=== PATIENT | female | born 1985 | race Caucasian/White ===

== ENCOUNTER 2020-06-23 11:02 | Outpatient (REF) | payer MEDICAID, OTHER, SELFPAY ==
--- NOTE | 2020-06-23 | US_ITS ---
EXAMINATION: ULTRASOUND PELVIS COMPLETE CLINICAL INFORMATION: Pelvic pain COMPARISON: Comparison: 01/21/2018 TECHNIQUE: Transabdominal and transvaginal ultrasound the pelvis performed FINDINGS: The uterus is anteverted and anteflexed measuring 10.3 cm in length, 4.3 cm in AP and 5.4 cm in transverse dimension. Endometrial thickness measures 0.5 cm. Small nabothian cysts seen in the cervix. Right ovary measures 6.3 x 3.5 x 2.4 cm and 27.7 mL volume. There are 2 cysts seen. A simple cyst measuring 3.5 x 2.1 x 2.9 cm and a corpus luteal cyst measuring 1.6 x 1.5 x 1.8 cm. Previously right ovary measured 2.0 x 2.0 x 2.4 cm. Left ovary measures 2.8 x 2.2 x 1.5 cm and volume 4.8 mL. It appears unremarkable. Previously it measured 2.0 x 2.3 x 2.5 cm. There is no free fluid in the cul-de-sac. US/US pelvic complete IMPRESSION: Unremarkable uterus. Simple cyst. Popliteal cyst right ovary. Nabothian cyst in cervix.
--- NOTE | 2020-06-23 | US_ITS ---
EXAMINATION: ULTRASOUND PELVIS COMPLETE CLINICAL INFORMATION: Pelvic pain COMPARISON: Comparison: 01/21/2018 TECHNIQUE: Transabdominal and transvaginal ultrasound the pelvis performed FINDINGS: The uterus is anteverted and anteflexed measuring 10.3 cm in length, 4.3 cm in AP and 5.4 cm in transverse dimension. Endometrial thickness measures 0.5 cm. Small nabothian cysts seen in the cervix. Right ovary measures 6.3 x 3.5 x 2.4 cm and 27.7 mL volume. There are 2 cysts seen. A simple cyst measuring 3.5 x 2.1 x 2.9 cm and a corpus luteal cyst measuring 1.6 x 1.5 x 1.8 cm. Previously right ovary measured 2.0 x 2.0 x 2.4 cm. Left ovary measures 2.8 x 2.2 x 1.5 cm and volume 4.8 mL. It appears unremarkable. Previously it measured 2.0 x 2.3 x 2.5 cm. There is no free fluid in the cul-de-sac. US/US transvaginal IMPRESSION: Unremarkable uterus. Simple cyst. Popliteal cyst right ovary. Nabothian cyst in cervix.
== END 2020-06-23 11:03 | disposition home or self-care (01) ==
LOC: HO.US 11:02
PROVIDERS: Visit Provider General Practice
DX: R10.2 Pelvic and perineal pain (principal)
CPT/HCPCS: 76830; 76856

== ENCOUNTER 2020-10-23 10:24 | Emergency (ER) | payer MEDICAID, OTHER, SELFPAY ==
--- NOTE | ~2020-10-23 | CT_ITS ---
EXAMINATION: CT CERVICAL SPINE WITHOUT CONTRAST CLINICAL INFORMATION: Atraumatic right-sided neck pain COMPARISON: None. TECHNIQUE: Contiguous helical images of the cervical spine were obtained without IV contrast. Multiplanar reconstructions were performed. This CT examination was performed using dose optimization techniques as appropriate, variously including the following: *Automated exposure control *Adjustment of mA and/or kV according to patient size (this includes techniques or standardized protocols for targeted exams where dose is matched to indication/reason for exam; i.e. extremities or head) *Use of iterative reconstruction technique DLP: 524 mGy-cm FINDINGS: Straightening of the normal cervical lordosis. There is anatomic alignment of the vertebral bodies and posterior elements. The atlantoaxial and atlantooccipital articulations are intact. Vertebral body heights and intervertebral disc spaces are maintained. No bony spinal canal or neuroforaminal narrowing No evidence of acute fracture. No prevertebral soft tissue swelling. There is no cervical lymphadenopathy. The visualized thyroid gland is unremarkable. The visualized base of the brain is unremarkable. The visualized lung apices are clear. CT/CT cervical spine wo con IMPRESSION: No evidence for acute injury to the cervical spine. No evidence of bony spinal canal or neuroforaminal narrowing.
[2020-10-23 10:30] VITALS: BP 125/74; PULSE 86; RESP 16; TEMP 36.8; O2SAT 97; BMI 24.7
[2020-10-23 11:42] LABS: MANUAL DIFF FLAG NO
[2020-10-23 11:43] LABS: Basophils Percent Auto 0.4 % (0-2); Eosinophils Absolute Auto 0.2 X10*3/uL (0.0-0.4); Eosinophils Percent Auto 2.4 % (0-4); Hematocrit 38.2 % (37-47); Hemoglobin 13.1 g/dl (12.0-16.0); Imm Gran Abs Auto 0.02 X10*3/uL (0.00-0.03); Imm Gran Pct Auto 0.3 % (0.0-0.4); Lymphocytes Absolute Auto 2.1 X10*3/uL (1.2-4.9); Lymphocytes Percent Auto 26.5 % (20-40); Mean Corpuscular HGB Conc 34.3 g/dl (31.0-35.0); Mean Corpuscular Hemoglobin 29.8 pg (27.0-33.0); Mean Corpuscular Volume 86.8 fL (80-98); Monocytes Absolute Auto 0.5 X10*3/uL (0.1-1.2); Monocytes Percent Auto 6.7 % (2-11); Neutrophils Absolute Auto 5.1 X10*3/uL (2.0-8.3); Neutrophils Percent Auto 63.7 % (45-73); Platelet Count 275 X10*3/uL (160-400); Red Cell Distribution Width 11.5 % (11.0-16.0)
[2020-10-23 11:49] LABS: Prothrombin Time 11.5 SEC (10.8-13.0)
[2020-10-23] MEDS: Ketorolac Tromethamine 30 MG/ML VIAL IVPUSH (11:51)
[2020-10-23] MEDS: dexAMETHasone 2 MG TABLET 10 MG PO (11:51)
[2020-10-23] MEDS: diazePAM 5 MG TABLET PO (11:51)
[2020-10-23] MEDS: Lidocaine 4 % Patch ADH..PATCH 1 PATCH TRANSDERMA (11:56)
--- NOTE | 2020-10-23 11:57 | ED.NECK ---
HPI - Neck Pain/Injury General Chief Complaint: Neck Pain/Injury Stated Complaint: neck pain Time Seen by Provider: 10/23/20 11:08 Source: patient Mode of arrival: ambulatory Limitations: language barrier (Citizen [place]-speaking) History of Present Illness HPI Narrative: 35-year-old female with a past medical history of meningitis years ago and migraine headaches presenting to the ED with complaints of atraumatic right-sided neck pain for the past 4 days. Reports that it is worse with looking up towards the ceiling or turning her neck to the right. Otherwise she has no trouble looking down towards the floor or turning her neck to the left. She denies any fevers, chills, neck stiffness, sore throat, ear pain, cough any other symptoms complaints or concerns at this time. She reports it does not feel the same when she had her meningitis infection at that time she could not move her neck and she had swelling of the neck per patient. She denies any drug usage especially IV drug usage. MD complaint: neck pain Onset (ago): day(s) (Four days worse today) Place: home Radiation: right lateral Severity: moderate and constant Quality: aching and spasming Duration: constant Relieving factors: other (Mild symptomatic relief with Motrin) Exacerbating factors: movement of neck (Looking up towards the ceiling or towards the right) Context: other (Patient reports she woke up with this pain) Associated symptoms: none Treatments prior to arrival: none Related Data Previous Rx's Medication Instructions Recorded diazepam [Valium] 5 mg PO TID PRN #14 tab 10/23/20 ibuprofen 800 mg PO Q8H PRN #14 tab 10/23/20 Allergies Allergy/AdvReac Type Severity Reaction Status Date / Time ANTIBIOTIC Allergy Intermediate UNKNOWN Uncoded 04/01/20 17:53 WHICH ABX, RASH ON BODY Review of Systems Review of Systems: Constitutional : No trauma, No Weight loss, No Fever, No Chills, ENT/Mouth : No Hearing loss, No Ear Pain, No Nasal Congestion, No Sinus Pain, No Hoarseness, No sore throat, No Rhinorrhea, No Swallowing Difficulty Cardiovascular : No Chest Pain, No SOB Respiratory : No Cough, No Dyspnea Gastrointestinal : No Nausea, No Vomiting, No Diarrhea, No abdominal Pain, No Hematochezia, No Melena Genitourinary : No Dysuria, No Urinary Frequency, No Hematuria, No Urinary or Bowel Incontinence/retention Musculoskeletal : + Neck pain, No Neck Stiffness, No Back pain, No joint stiffness, No joint swelling Skin : No Skin Lesions, No rash or signs of infection Neuro : + Tingling to b/l arms, No Weakness, No radiation, No Numbness, No headache, no loss of bowel or bladder incontinence, no saddle anesthesia Denies history of IV drug usage. Yes all other systems are reviewed and are negative [facility] Past Medical History Attestation statement: The following information was validated with the patient. Medical History Meningitis No known health problems Surgical History History of appendectomy Social History Social History Advance Directives: No Physical Exam Vital Signs: Vital Signs: Last Vital Signs Temp 98.3 F 10/23/20 10:30 Pulse 78 10/23/20 13:53 Resp 14 10/23/20 13:53 BP 118/62 10/23/20 13:53 Pulse Ox 98 10/23/20 13:53 Body Mass Index 24.7 vital signs have been reviewed as normal and appeared to be correct. Blood pressure normal. Heart rate normal. Respiration rate normal. Temperature normal. Oxygen saturation normal. Appearance: Alert. Oriented X3. No acute distress. Head: Normal external exam. Normocephalic. Atraumatic. Eyes: PERRLA. EOMI. Conjunctiva and sclera normal. Eyelids normal. ENT: Pharynx normal. Uvula midline. Moist mucous membranes. No trismus noted. No drooling noted. No muffled voice noted. Neck: Normal inspection. Neck supple. Patient reports she has pain with looking up towards the ceiling and rotating her head to the right otherwise does not have any trouble looking down towards the floor or turning her head to the left.. No adenopathy. Thyroid Normal. Trachea midline. No meningeal signs. No neck mass noted. Tender to palpation of right-sided paracervical musculature and mid cervical tenderness. No step-offs or deformities noted. Patient neuro intact bilaterally and distally on all 4 extremities. Reflexes intact bilaterally and distally in all 4 extremities. No rashes/lesion/induration/fluctuance or signs of infection noted. No edema noted. CVS: Normal heart rate and rhythm. Heart sound normal. No murmurs noted. Pulses normal throughout. Respiratory: No respiratory distress. Painless inspiration. Breath sounds normal. No wheezes/rales/rhonchi noted. Chest nontender. No accessory muscle usage noted or decreased air movement noted. Back: Full range of motion noted. No obvious deformities, or edema. Full ROM in back and lower extremities. Skin: Skin warm and dry. Normal skin color. Normal skin turgor. No rashes/lesions/lacerations noted. Extremities: Extremities exhibit normal range of motion. Extremities nontender. Neuro: Oriented X 3. No motor deficit. No sensory deficit. Reflexes normal. Normal steady gait. Course Course Course Narrative: 35-year-old female with a past medical history of meningitis years ago presenting to the ED with complaints of right-sided atraumatic neck pain for the past 4 days. Denies history of drug usage/IV drug usage. Denies any fevers, chills, neck stiffness or recent illness. - on exam patient is alert and oriented x3. Not in any acute distress. Vital signs are stable within normal limits patient is afebrile. She is able to move her neck although she states pain when looking up towards the ceiling and looking towards her right although patient can do it and she does not have any trouble looking down to the floor or looking over her left shoulder. No signs of infection. No meningeal signs. No neuro deficits are noted. - patient most likely muscular spasm - will obtain a CT scan of cervical spine, basic labs and provide symptomatic treatment with 30 mg of Toradol, 5 mg of Valium and 10 mg of Decadron and re-evaluate. Reevaluation(s) Reevaluation #1: - all labs within normal limits. Serum quant negative for . CT scan of cervical spine revealed chronic changes no acute processes noted. - patient reported symptomatic relief of her neck pain and now has full range of motion therefore not consistent with meningitis as patient denied any fevers, chills she is afebrile on exam she does not have an elevated white blood cell count she has full range of motion therefore at this time will DC home with symptomatic treatment along with instructions return if any new or worsening symptoms to follow up with primary care provider. Patient understands agrees with this plan. Time: 15:24 [facility] - Neck Pain/Injury Medical Records Attestation: I reviewed the patient's medical records. Lab Data Attestation: I reviewed the patient's lab results. Result diagrams: 10/23/20 11:38 10/23/20 14:34 Labs: Lab Results 10/23/20 10/23/20 10/23/20 Range/Units 11:38 11:38 11:38 WBC 8.0 (4.8-10.8) X10*3/uL RBC 4.40 (4.20-5.50) X10*6/uL Hgb 13.1 (12.0-16.0) g/dl Hct 38.2 (37-47) % MCV 86.8 (80-98) fL MCH 29.8 (27.0-33.0) pg MCHC 34.3 (31.0-35.0) g/dl RDW 11.5 (11.0-16.0) % Plt Count 275 (160-400) X10*3/uL MPV 10.0 (9.4-12.3) fL Immature Gran % (Auto) 0.3 (0.0-0.4) % Neut % (Auto) 63.7 (45-73) % Lymph % (Auto) 26.5 (20-40) % Moca % (Auto) 6.7 (2-11) % Eos % (Auto) 2.4 (0-4) % Baso % (Auto) 0.4 (0-2) % Lymph # (Auto) 2.1 (1.2-4.9) X10*3/uL Moca # (Auto) 0.5 (0.1-1.2) X10*3/uL Eos # (Auto) 0.2 (0.0-0.4) X10*3/uL Baso # (Auto) 0.0 (0.0-0.2) X10*3/uL Abs Immat Gran (auto) 0.02 (0.00-0.03) X10*3/uL Absolute Neuts (auto) 5.1 (2.0-8.3) X10*3/uL Absolute Nucleated RBC 0.000 (0.0-0.012) X10*3/uL Nucleated RBC % (auto) 0.0 (0.0-0.2) /100WBC ESR 4 (0-20) MM/HR PT 11.5 (10.8-13.0) SEC INR 1.0 (0.9-1.1) Sodium (135-145) mmol/L Potassium (3.3-5.1) mmol/L Chloride (96-108) mmol/L Carbon Dioxide (22-29) mmol/L Anion Gap (12-20) BUN (9-16) mg/dL Creatinine (0.5-1.4) mg/dL Estim Creat Clear Calc Estimated GFR Random Glucose (60-115) mg/dL Calcium (8.4-10.2) mg/dL Total Bilirubin (0.0-1.0) mg/dL AST (5-31) U/L ALT (0-31) U/L Alkaline Phosphatase (39-117) U/L C-Reactive Protein (< or = 0.50) mg/dL Total Protein (6.5-8.0) g/dL Albumin (3.5-5.0) g/dL Beta HCG, Quant mIU/mL 10/23/20 Range/Units 14:34 WBC (4.8-10.8) X10*3/uL RBC (4.20-5.50) X10*6/uL Hgb (12.0-16.0) g/dl Hct (37-47) % MCV (80-98) fL MCH (27.0-33.0) pg MCHC (31.0-35.0) g/dl RDW (11.0-16.0) % Plt Count (160-400) X10*3/uL MPV (9.4-12.3) fL Immature Gran % (Auto) (0.0-0.4) % Neut % (Auto) (45-73) % Lymph % (Auto) (20-40) % Moca % (Auto) (2-11) % Eos % (Auto) (0-4) % Baso % (Auto) (0-2) % Lymph # (Auto) (1.2-4.9) X10*3/uL Moca # (Auto) (0.1-1.2) X10*3/uL Eos # (Auto) (0.0-0.4) X10*3/uL Baso # (Auto) (0.0-0.2) X10*3/uL Abs Immat Gran (auto) (0.00-0.03) X10*3/uL Absolute Neuts (auto) (2.0-8.3) X10*3/uL Absolute Nucleated RBC (0.0-0.012) X10*3/uL Nucleated RBC % (auto) (0.0-0.2) /100WBC ESR (0-20) MM/HR PT (10.8-13.0) SEC INR (0.9-1.1) Sodium 138 (135-145) mmol/L Potassium 4.9 (3.3-5.1) mmol/L Chloride 108 (96-108) mmol/L Carbon Dioxide 20 L (22-29) mmol/L Anion Gap 15 (12-20) BUN 12 (9-16) mg/dL Creatinine 0.68 (0.5-1.4) mg/dL Estim Creat Clear Calc 93.5 Estimated GFR > 60 Random Glucose 99 (60-115) mg/dL Calcium 8.8 (8.4-10.2) mg/dL Total Bilirubin 0.4 (0.0-1.0) mg/dL AST 23 (5-31) U/L ALT 27 (0-31) U/L Alkaline Phosphatase 53 (39-117) U/L C-Reactive Protein 0.17 (< or = 0.50) mg/dL Total Protein 7.2 (6.5-8.0) g/dL Albumin 4.4 (3.5-5.0) g/dL Beta HCG, Quant < 2 mIU/mL Imaging Data Cervical spine CT: Attestation: I personally reviewed and interpreted this imaging study as follows: Radiologist's impression: FINDINGS: Straightening of the normal cervical lordosis. There is anatomic alignment of the vertebral bodies and posterior elements. The atlantoaxial and atlantooccipital articulations are intact. Vertebral body heights and intervertebral disc spaces are maintained. No bony spinal canal or neuroforaminal narrowing No evidence of acute fracture. No prevertebral soft tissue swelling. There is no cervical lymphadenopathy. The visualized thyroid gland is unremarkable. The visualized base of the brain is unremarkable. The visualized lung apices are clear. CT/CT cervical spine wo con IMPRESSION: No evidence for acute injury to the cervical spine. No evidence of bony spinal canal or neuroforaminal narrowing. Discharge Plan Discharge Clinical Impression: Strain of neck muscle, Torticollis Patient Disposition: Home, Self-Care Instructions: Spasmodic Torticollis (ED), Muscle Spasm (ED) Prescriptions: New ibuprofen 800 mg tablet 800 mg PO Q8H PRN (Reason: pain) Qty: 14 RF: 0 diazepam [Valium] 5 mg tablet 5 mg PO TID PRN (Reason: muscle spasm) Qty: 14 RF: 0 Referrals: [facility] [Primary Care Provider] - 2 days Stand Alone Forms: Work/School Release Print Language: Citizen Of [place]
[2020-10-23 13:28] LABS: Erythrocyte Sedimentation Rate 4 MM/HR (0-20)
[2020-10-23 13:53] VITALS: BP 118/62; PULSE 78; RESP 14; O2SAT 98
[2020-10-23 15:09] LABS: Alanine Aminotransferase 27 U/L (0-31); Albumin Level 4.4 g/dL (3.5-5.0); Alkaline Phosphatase 53 U/L (39-117); Anion Gap 15 (12-20); Aspartate Amino Transferase 23 U/L (5-31); Bilirubin Total 0.4 mg/dL (0.0-1.0); Blood Urea Nitrogen 12 mg/dL (9-16); C Reactive Protein 0.17 mg/dL (< or = 0.50); Calcium 8.8 mg/dL (8.4-10.2); Carbon Dioxide 20 mmol/L (22-29); Chloride 108 mmol/L (96-108); Creatinine Clr Calc Pharmacy 93.5; Estimated Glomerular Filt Rate > 60; Glucose Random 99 mg/dL (60-115); Potassium 4.9 mmol/L (3.3-5.1); Sodium 138 mmol/L (135-145); Total Protein 7.2 g/dL (6.5-8.0)
[2020-10-23 15:10] LABS: HCG Quantitative < 2 mIU/mL
== END 2020-10-23 15:46 | disposition home or self-care (01) ==
PROVIDERS: Physician Assistant Medical; Emergency Provider Emergency Medicine Emergency Medical Services
DX: M54.2 Cervicalgia (principal); S16.1XXA Strain of muscle, fascia and tendon at neck level, initial encounter; G24.3 Spasmodic torticollis; X50.1XXA Overexertion from prolonged static or awkward postures, initial encounter; Y93.84 Activity, sleeping; Y92.013 Bedroom of single-family (private) house as the place of occurrence of the external cause; Y99.9 Unspecified external cause status
CPT/HCPCS: 36415; 72125; 80053; 84702; 85025; 85610; 85652; 86140; 96374; 99284; J1885; J8540

== ENCOUNTER 2021-01-27 00:24 | Emergency (ER) | payer MEDICAID, OTHER, SELFPAY ==
[2021-01-27 00:27] VITALS: BP 130/82; PULSE 82; RESP 18; TEMP 37; O2SAT 98; BMI 26.4
[2021-01-27 01:49] LABS: Glucose Urine UA NEG (NEG); Leukocyte Esterase Urine 1+ (NEG); Nitrite Urine NEG (NEG); UACC Culture Trigger YES; Urine Blood 2+ (NEG); Urine Ketones NEG (NEG); Urine Protein 1+ MG/DL (NEG-TRACE)
[2021-01-27 01:50] LABS: Appearance Urine HAZY; Color Urine YELLOW
[2021-01-27 01:55] LABS: Bacteria Urine 3+ /LPF; Calcium Oxalate Crystals Urine 2+ /LPF; Mucus Urine 2+ /LPF; Squamous Epithelial Cell Urine 2+ /LPF
[2021-01-27 02:09] LABS: UPreg QC Valid YES; Urine Pregnancy NEGATIVE (NEGATIVE)
--- NOTE | 2021-01-27 02:10 | ED.FEMALEGU ---
HPI - Female Genitourinary General Chief complaint: Urogenital-Female Stated complaint: migraine, stomach pain, urinating w/ blood Time Seen by Provider: 01/27/21 01:29 Source: patient and translator/interpreter Mode of arrival: ambulatory History of Present Illness HPI Narrative: 35-year-old female with presentation for headache as well as irregularity to her menstrual bleeding for 4 days and states that her LMP is 3 weeks ago. She also describes crampy pelvic pain and sources a recent diagnosis of an ovarian cyst. Related Data Previous Rx's Medication Instructions Recorded diazepam [Valium] 5 mg PO TID PRN #14 tab 10/23/20 ibuprofen 800 mg PO Q8H PRN #14 tab 10/23/20 cephalexin 500 mg PO Q12H 7 Days #14 cap 01/27/21 phenazopyridine [Pyridium] 100 mg PO TID PRN #6 tab 01/27/21 Allergies Allergy/AdvReac Type Severity Reaction Status Date / Time ANTIBIOTIC Allergy Intermediate UNKNOWN Uncoded 04/01/20 17:53 WHICH ABX, RASH ON BODY Review of Systems Review of Systems: Pertinent positives and negatives as stated in HPI 10 point review of systems is otherwise negative. [facility] Past Medical History Source: nursing notes reviewed Medical History Meningitis No known health problems Surgical History History of appendectomy Social History Social History Alcohol intake: never Patient Tobacco Use Status: Never used Tobacco Use of substances other than those prescribed or required for medical reasons: No Advance Directives: No Advance Directives Information Provided: No Patient : No Physical Exam Vital Signs: Vital Signs: Last Vital Signs Temp 98.6 F 01/27/21 00:27 Pulse 69 01/27/21 02:34 Resp 14 01/27/21 02:34 BP 111/78 01/27/21 02:34 Pulse Ox 100 01/27/21 02:34 Body Mass Index 26.4 VITAL SIGNS: Reviewed. GENERAL: Well developed, well nourished, in no acute distress. HEAD: Normocephalic/atraumatic EYES: PERRLA, EOMI OROPHARYNX: no oral lesions noted, posterior pharynx clear LUNGS: Normal breath sounds. No adventitious sounds or accessory muscle use. SpO2<100> CARDIOVASCULAR: Regular rate and rhythm without noted murmurs ABDOMEN: Soft, mild suprapubic tenderness, non-distended with bowel sounds, CVA tenderness SKIN: Inspection of the skin reveals no rashes, ulcerations, jaundice, pallor, or petechiae. NEUROLOGIC: Alert and oriented x 4. Strength and sensation to light touch were grossly intact x 4. Course Course Course Narrative: 35-year-old female with history and clinical presentation suggestive UTI, less likely pyelonephritis or renal colic. Review of all investigations positive for UTI and patient received initial antibiotics here and then was discharged home with remaining course. [facility] - Female Genitourinary Lab Data Labs: Lab Results 01/27/21 01/27/21 Range/Units 01:43 01:43 Urine Color YELLOW Urine Appearance HAZY Urine pH 6.0 (5.0-8.0) Ur Specific [place] 1.020 (1.005-1.025) Urine Protein 1+ H (NEG-TRACE) MG/DL Urine Glucose (UA) NEG (NEG) MG/DL Urine Ketones NEG (NEG) MG/DL Urine Blood 2+ H (NEG) Urine Nitrite NEG (NEG) Ur Leukocyte Esterase 1+ H (NEG) Urine RBC 1-4 (0) /HPF Urine WBC 15-29 H (0-4) /HPF Ur Squamous Epith Cells 2+ /LPF Calcium Oxalate Crystal 2+ /LPF Urine Bacteria 3+ /LPF Urine Mucus 2+ /LPF Urine Test NEGATIVE (NEGATIVE) Discharge Plan Discharge Clinical Impression: Urinary tract infection Patient Disposition: Home, Self-Care Instructions: Urinary Tract Infection in Women (ED) Additional Instructions: 1. Aumente la hidrataci?n de los l?quidos, especialmente con agua. 2. Recomiende el uso de Tylenol / ibuprofeno de venta jem seg?n sea necesario para controlar el dolor. Regrese a la adolfo de emergencias por un empeoramiento lemuel de los s?ntomas. Prescriptions: New cephalexin 500 mg capsule 500 mg PO Q12H 7 Days Qty: 14 RF: 0 phenazopyridine [Pyridium] 100 mg tablet 100 mg PO TID PRN (Reason: pain) Qty: 6 RF: 0 No Action ibuprofen 800 mg tablet 800 mg PO Q8H PRN (Reason: pain) Qty: 14 RF: 0 diazepam [Valium] 5 mg tablet 5 mg PO TID PRN (Reason: muscle spasm) Qty: 14 RF: 0 Referrals: [place] [Primary Care Provider] - 2 days Interventions: ED Discharge Assessment Last Done: 01/27/21 04:00 Discharge Date/Time: 01/27/21 04:01 Print Language: French
[2021-01-27 02:34] VITALS: BP 111/78; PULSE 69; RESP 14; O2SAT 100
[2021-01-27] MEDS: Acetaminophen 325 MG TABLET 975 MG PO (02:41)
[2021-01-27] MEDS: cephALEXin 500 MG CAPSULE PO (02:42)
[2021-01-27] MEDS: Phenazopyridine HCL 200 MG TABLET PO (02:42)
[2021-01-27] MEDS: Ibuprofen 400 MG TABLET PO (02:42)
== END 2021-01-27 04:01 | disposition home or self-care (01) ==
PROVIDERS: Emergency Provider Student in an Organized Health Care Education/Training Program
DX: N39.0 Urinary tract infection, site not specified (principal)
CPT/HCPCS: 81001; 81003; 81025; 87086; 87088; 87186; 99283; 99285

== ENCOUNTER 2021-05-24 18:08 | Emergency (ER) | payer MEDICAID, OTHER, SELFPAY ==
[2021-05-24 18:30] VITALS: BP 126/77; PULSE 70; RESP 16; TEMP 36; O2SAT 100; BMI 25.2
--- NOTE | 2021-05-24 20:46 | ED_ITS ---
HPI - Headache General Chief Complaint: Headache Stated Complaint: headache vomitting Time Seen by Provider: 05/24/21 20:37 Source: patient Mode of arrival: ambulatory Limitations: no limitations History of Present Illness HPI Narrative: Patient comes emergency room complaining of a headache that started this morning. Patient states that she also has nausea and vomited once. Patient has history of migraine headaches. Patient has not had a migraine for over 3 months. Today, the patient has not taking any medications for the headache including Tylenol or ibuprofen. When patient arrived to the emergency room, she states did that she has body aches. When I spoke with the patient, patient denied any body aches other than the headache. Patient denies neck pain, stiffness, no URI abdominal or UTI symptoms., no fever or chills Related Data Previous Rx's Medication Instructions Recorded diazepam 5 mg tablet (Valium) 5 mg PO TID PRN #14 tab 10/23/20 ibuprofen 800 mg tablet 800 mg PO Q8H PRN #14 tab 10/23/20 cephalexin 500 mg capsule 500 mg PO Q12H 7 Days #14 cap 01/27/21 phenazopyridine 100 mg tablet 100 mg PO TID PRN #6 tab 01/27/21 (Pyridium) ketorolac 10 mg tablet 10 mg PO TID PRN 5 Days #7 tab 05/24/21 metoclopramide HCl 5 mg tablet 5 mg PO .B.i.d. PRN #7 tab 05/24/21 (Reglan) Allergies Allergy/AdvReac Type Severity Reaction Status Date / Time ANTIBIOTIC Allergy Intermediate UNKNOWN Uncoded 04/01/20 17:53 WHICH ABX, RASH ON BODY Review of Systems Review of Systems: Constitutional : No Weight loss, No Fever, No Chills, No Night Sweats, No Fatigue, No Malaise ENT/Mouth : No Hearing loss, No Ear Pain, No Nasal Congestion, No Sinus Pain, No Hoarseness, No sore throat, No Rhinorrhea, No Swallowing Difficulty Eyes: No Eye Pain, No Swelling, No Redness, No Foreign Body, No Discharge, No Vision Changes Cardiovascular : No Chest Pain, No SOB, No Dyspnea on Exertion, No Orthopnea, No Edema, No Palpitations Respiratory : No Cough, No Sputum, No Wheezing, No Smoke Exposure, No Dyspnea Gastrointestinal complaining of nausea and vomiting, No Diarrhea, No Constipation, No abdominal Pain, No Hematochezia, No Melena Genitourinary : no irregular bleeding, No Dysuria, No Urinary Frequency, No Hematuria, No Urinary Incontinence, No Urgency, No Flank Pain, No Urinary Flow Changes, No Hesitancy Musculoskeletal : No joint pain, No Myalgias, No Joint Swelling Skin : No Skin Lesions, No rash Neuro : No Weakness, No Numbness, No Paresthesias, No Loss of Consciousness, No Dizziness, complaining of Headache Psych : No Anxiety/Panic, No Depression, No SI/HI/AH/VH, No Social Issues, Heme/Lymph: No Bruising, No Bleeding,No Lymphadenopathy Endocrine : No Polyuria, No Polydipsia, No Temperature Intolerance PMFSH Past Medical History Medical History Meningitis No known health problems Surgical History History of appendectomy Social History Social History Alcohol intake: never Patient Tobacco Use Status: Never used Tobacco Advance Directives: No Advance Directives Information Provided: Yes Patient : No Physical Exam Vital Signs: Vital Signs: Last Vital Signs Temp 96.8 F 05/24/21 18:30 Pulse 70 05/24/21 18:30 Resp 16 05/24/21 18:30 BP 126/77 05/24/21 18:30 Pulse Ox 100 05/24/21 18:30 Body Mass Index 25.2 Const: Other: Appearance: Alert. Oriented X3. No acute distress. Well- appearing Eyes: Pupils equal, round and reactive to light. ENT: Pharynx normal. [place] neck flexion and extension Neck: Normal inspection. Neck supple. No lymph nodes noted. No crepitus CVS: Normal heart rate and rhythm. Pulses normal. Normal S1 and S2 Respiratory: No respiratory distress. Breath sounds normal. No Wheezing. No rales Abdomen: Soft and nontender. No rigidity. No distention. Skin: Skin warm and dry. Normal skin color. Normal skin turgor. Extremities: No lower extremity edema. No lower extremity edema. No Lacerations. No Rash Neuro: Oriented X 3. No motor deficit. No sensory deficit. Moving all ex termities. No slurred speech. Course Course Course Narrative: IV fluids, ketorolac, metoclopramide, diphenhydramine. Please reassess after IV fluids. Anticipating discharge home. Sign out given to Dr. Bruce Discharge Plan Discharge Clinical Impression: Migraine headache Patient Disposition: Home, Self-Care Instructions: Migraine Headache (ED) Additional Instructions: Please follow-up with your primary care physician tomorrow. If you have any worsening or new symptoms, please return to the emergency room or call 911 Prescriptions: New ketorolac 10 mg tablet 10 mg PO TID PRN (Reason: pain) 5 Days Qty: 7 RF: 0 metoclopramide HCl [Reglan] 5 mg tablet 5 mg PO .B.i.d. PRN (Reason: nausea and vomiting) Qty: 7 RF: 0 No Action ibuprofen 800 mg tablet 800 mg PO Q8H PRN (Reason: pain) Qty: 14 RF: 0 diazepam [Valium] 5 mg tablet 5 mg PO TID PRN (Reason: muscle spasm) Qty: 14 RF: 0 cephalexin 500 mg capsule 500 mg PO Q12H 7 Days Qty: 14 RF: 0 phenazopyridine [Pyridium] 100 mg tablet 100 mg PO TID PRN (Reason: pain) Qty: 6 RF: 0
[2021-05-24] MEDS: 0.9 % Sodium Chloride 1,000 ML 999 ML IVCONT (21:19)
[2021-05-24] MEDS: Metoclopramide HCl 10 MG/2 ML VIAL IVPUSH (21:20)
[2021-05-24] MEDS: diphenhydrAMINE HCL 50 MG/ML VIAL 25 MG IVPUSH (21:20)
[2021-05-24] MEDS: Ketorolac Tromethamine 15 MG/ML VIAL 30 MG IVPUSH (21:20)
[2021-05-24 22:51] VITALS: BP 125/80; PULSE 80; RESP 16; O2SAT 100
== END 2021-05-24 22:53 | disposition home or self-care (01) ==
PROVIDERS: Emergency Provider Emergency Medicine
DX: G43.909 Migraine, unspecified, not intractable, without status migrainosus (principal)
CPT/HCPCS: 96361; 96374; 96375; 99284; J1200; J1885; J2765

== ENCOUNTER 2021-06-13 14:27 | Outpatient (REF) | payer MEDICAID, OTHER, SELFPAY ==
--- NOTE | ~2021-06-13 | US_ITS ---
EXAMINATION: US PELVIS CLINICAL INFORMATION: Abnormal uterine bleeding COMPARISON: Previous pelvic ultrasounds most recent June 2019 TECHNIQUE: Ultrasound of the pelvis is performed using both transabdominal and transvaginal transducers along with Doppler. Transvaginal imaging is performed due to inadequate visualization transabdominally. FINDINGS: The uterus is anteverted and measures 10 x 4 x 5 cm. No focal uterine lesion is seen. Endometrial thickness is normal measuring 0.4 cm. There are nabothian cysts in the cervix. There are several new punctate high attenuation foci in the cervix questionable for air, calcifications or blood product. The right ovary is normal-appearing and measures 3 x 2 x 3.2 cm. There are several simple right ovarian cysts, largest measuring 1.9 x 1.4 x1.4 cm. Left ovary is enlarged and measures 5 x 4 x 4.4 cm. There is a 4.3 x 4.3 x 3.3 cm minimally complex left ovarian cyst with daughter cysts. This is a new finding compared to June 2020 exam. There is no fluid in the pelvis. US/US pelvic and transvaginal IMPRESSION: Normal thickness endometrium. Enlarged left ovary and 4.3 x 4.3 x 3.3 cm minimally complex left ovarian cyst new in the interval from June 2020.
== END 2021-06-13 14:28 | disposition home or self-care (01) ==
LOC: HO.US 14:27
PROVIDERS: Visit Provider General Practice
DX: N93.9 Abnormal uterine and vaginal bleeding, unspecified (principal)
CPT/HCPCS: 76830; 76856

== ENCOUNTER 2021-07-11 13:54 | Emergency (ER) | payer MEDICAID, OTHER, SELFPAY ==
--- NOTE | ~2021-07-11 | XR_ITS ---
EXAMINATION: XR CHEST CLINICAL INFORMATION: Shortness of breath COMPARISON: 03/29/2020 TECHNIQUE: Frontal view of the chest was obtained. FINDINGS: No significant abnormality is noted involving the heart, lungs, mediastinum, bony thorax or soft tissues. XR/XR chest 1V IMPRESSION: Unremarkable examination.
[2021-07-11 17:38] LABS: COVID-19 Test Positive (Negative)
--- NOTE | 2021-07-11 18:16 | ED.URI ---
HPI - URI/Sore Throat General Stated Complaint: Fever Headache Dizzy Time Seen by Provider: 07/11/21 18:14 Source: patient Mode of arrival: ambulatory Limitations: no limitations History of Present Illness HPI Narrative: 36-year-old female past medical history significant for migraines, meningitis years ago presents to the emergency department with complaints of headache,nausea, sore throat, body aches, fevers all of which started this morning. Patient tells me this feels like her typical headache. She reports nausea all day today and a sore throat. She tells me she feels fatigued and exhausted. Fevers are subjective but she states she has felt warm. She denies cough, shortness of breath, chest pain, nausea, vomiting, diarrhea, constipation, abdominal pain, weakness, weakness. Vaccinated against COVID-19. Not imunocompromised MD elicited complaint: fever Onset (ago): day(s) (1) Consistency: constant Severity: moderate Able to tolerate fluids by mouth: Yes Exacerbating factors: nothing Relieving factors: nothing Associated symptoms: denies other symptoms Treatments prior to arrival: none Related Data Previous Rx's Medication Instructions Recorded diazepam 5 mg tablet (Valium) 5 mg PO TID PRN #14 tab 10/23/20 ibuprofen 800 mg tablet 800 mg PO Q8H PRN #14 tab 10/23/20 cephalexin 500 mg capsule 500 mg PO Q12H 7 Days #14 cap 01/27/21 phenazopyridine 100 mg tablet 100 mg PO TID PRN #6 tab 01/27/21 (Pyridium) ketorolac 10 mg tablet 10 mg PO TID PRN 5 Days #7 tab 05/24/21 metoclopramide HCl 5 mg tablet 5 mg PO .B.i.d. PRN #7 tab 05/24/21 (Reglan) Allergies Allergy/AdvReac Type Severity Reaction Status Date / Time acetaminophen [From Percocet] Allergy Vomiting Verified 07/11/21 18:24 oxycodone [From Percocet] Allergy Vomiting Verified 07/11/21 18:24 ibuprofen [From Motrin] AdvReac Abdominal Verified 07/11/21 18:24 Pain ANTIBIOTIC Allergy Intermediate UNKNOWN Uncoded 04/01/20 17:53 WHICH ABX, RASH ON BODY Review of Systems Review of Systems: Constitutional : No Weight loss, + Fever, No Chills, + Fatigue, + Malaise ENT/Mouth : No sore throat, No Rhinorrhea Eyes: No Eye Pain, No Swelling, No Redness Cardiovascular : No Chest Pain, No SOB, No Dyspnea on Exertion, No Orthopnea, No Edema, No Palpitations Respiratory : No Cough, No Sputum, No Wheezing Gastrointestinal : No Nausea, No Vomiting, No Diarrhea, No Constipation, No abdominal Pain, No Hematochezia, No Melena Genitourinary : No Dysuria, No Urinary Frequency, No Hematuria, Musculoskeletal : No joint pain, No Myalgias, No Joint Swelling Skin : No Skin Lesions, No rash Neuro : No Weakness, No Numbness, + Dizziness, + Headache All other systems reviewed and are negative Yes all other systems are reviewed and are negative [facility] Past Medical History Attestation statement: The following information was validated with the patient. Source: old records reviewed and nursing notes reviewed Medical History (Updated 07/11/21 @ 18:28 by CAROLA Aquino) Meningitis Migraine headache No known health problems Surgical History History of appendectomy Social History Social History Alcohol intake: never Patient Tobacco Use Status: Never used Tobacco Advance Directives: No Advance Directives Information Provided: No Physical Exam Vital Signs: Vital Signs: VSS Appearance: Alert.? Oriented X3.? No acute distress.? Head: Normocephalic, atraumatic, no step-offs or deformities Eyes: Pupils equal, round and reactive to light.? ENT: Pharynx normal.? Neck: Normal inspection.? Neck supple.? CVS: Normal heart rate and rhythm.? Pulses normal.? Respiratory: No respiratory distress.? Breath sounds normal.? Abdomen: Soft and nontender.? Skin: Skin warm and dry.? Normal skin color.? Normal skin turgor.? Extremities: No lower extremity edema.? No calf ttp. 5/5 strength to bilateral upper and lower extremities Back: No midline tenderness, no C-spine tenderness, full range of motion, no CVA tenderness bilaterally Neuro: Oriented X 3.? No motor deficit.? No sensory deficit. Course Reevaluation(s) Reevaluation #1: No meningeal signs unlikely meningitis. Patients symptoms likely secondary to COVID-19. MDM - URI/Sore Throat MDM Narrative Medical decision making narrative: 1812 36 yo F pmhx migranes and meningitis years ago presents with CC of headache, fever, body aches, sore throat. PE benign Plan- covid test Medical Records Attestation: I reviewed the patient's medical records. Lab Data Attestation: I reviewed the patient's lab results. Labs: Lab Results 07/11/21 Range/Units 17:03 COVID-19 (AVA) Positive A (Negative) COVID-19 Clin Com See Note Critical Care Time Critical Care Time Critical Care Time: No Discharge Plan Discharge Clinical Impression: Migraine headache, Upper respiratory infection Prescriptions: No Action ibuprofen 800 mg tablet 800 mg PO Q8H PRN (Reason: pain) Qty: 14 RF: 0 diazepam [Valium] 5 mg tablet 5 mg PO TID PRN (Reason: muscle spasm) Qty: 14 RF: 0 cephalexin 500 mg capsule 500 mg PO Q12H 7 Days Qty: 14 RF: 0 phenazopyridine [Pyridium] 100 mg tablet 100 mg PO TID PRN (Reason: pain) Qty: 6 RF: 0 ketorolac 10 mg tablet 10 mg PO TID PRN (Reason: pain) 5 Days Qty: 7 RF: 0 metoclopramide HCl [Reglan] 5 mg tablet 5 mg PO .B.i.d. PRN (Reason: nausea and vomiting) Qty: 7 RF: 0
[2021-07-11 18:40] VITALS: BP 117/77; PULSE 82; RESP 18; TEMP 36.8; O2SAT 100; BMI 25.2
--- NOTE | 2021-07-11 20:39 | ED.URI ---
HPI - URI/Sore Throat General Chief Complaint: Upper Respiratory Symptoms Stated Complaint: Fever Headache Dizzy Time Seen by Provider: 07/11/21 18:14 Source: patient Mode of arrival: ambulatory Limitations: no limitations History of Present Illness HPI Narrative: Patient presents to the ED for headache, diarrhea, sore throat, and fever. Patient states no chest pain or shortness of breath Related Data Previous Rx's Medication Instructions Recorded diazepam 5 mg tablet (Valium) 5 mg PO TID PRN #14 tab 10/23/20 ibuprofen 800 mg tablet 800 mg PO Q8H PRN #14 tab 10/23/20 cephalexin 500 mg capsule 500 mg PO Q12H 7 Days #14 cap 01/27/21 phenazopyridine 100 mg tablet 100 mg PO TID PRN #6 tab 01/27/21 (Pyridium) ketorolac 10 mg tablet 10 mg PO TID PRN 5 Days #7 tab 05/24/21 metoclopramide HCl 5 mg tablet 5 mg PO .B.i.d. PRN #7 tab 05/24/21 (Reglan) Allergies Allergy/AdvReac Type Severity Reaction Status Date / Time ANTIBIOTIC Allergy Intermediate UNKNOWN Uncoded 04/01/20 17:53 WHICH ABX, RASH ON BODY Review of Systems Review of Systems: Yes all other systems are reviewed and are negative Constitutional: Constitutional: Reports as per HPI, Reports no additional constitutional complaints, Reports body ache(s), Reports fever(s) and Reports headache(s) Eyes: Eyes: Reports as per HPI and Reports no additional eye complaints ENT: Reports system reviewed and no additional complaints, except as documented, Reports as per HPI and Reports headache(s) Cardiovascular: Cardiovascular: Reports as per HPI and Reports no additional cardiovascular complaints Respiratory: Respiratory: Reports as per HPI and Reports no additional respiratory complaints Gastrointestinal: Gastrointestinal: Reports as per HPI and Reports no additional gastrointestinal complaints Genitourinary: Genitourinary: Reports no additional female genitourinary complaints and Reports as per HPI Musculoskeletal: Musculoskeletal: Reports no additional musculoskeletal complaints and Reports as per HPI Neurologic: Reports system reviewed and no additional complaints, except as documented, Reports as per HPI and Reports headache(s) Endocrine: Endocrine: Reports no additional endocrine complaints and Reports as per HPI [facility] Past Medical History Medical History (Updated 07/11/21 @ 20:43 by CAROLA Lucero) Meningitis Migraine headache No known health problems Surgical History History of appendectomy Social History Social History Alcohol intake: never Patient Tobacco Use Status: Never used Tobacco Advance Directives: No Advance Directives Information Provided: No Patient : No Physical Exam Vital Signs: Vital Signs: Last Vital Signs Temp 98.3 F 07/11/21 18:40 Pulse 82 07/11/21 18:40 Resp 18 07/11/21 18:40 BP 117/77 07/11/21 18:40 Pulse Ox 100 07/11/21 18:40 BMI result Body Mass Index 25.2 Const: General: cooperative, healthy appearing, comfortable, no acute distress, well developed, alert, awake and Physically active Orientation/consciousness: patient oriented x3 HENMT: Head: Yes normal to inspection, Yes No palpable skull fracture present, Yes normocephalic, Yes atraumatic and No abrasion Eyes: General: appearance normal, both eyes and all related structures Neck: Neck: Yes normal visual inspection, Yes full ROM, Yes no lymphadenopathy, Yes no meningeal signs, Yes trachea midline, Yes supple, No anterior neck swelling and No tender Chest: Chest palpation & inspection: normal inspection of the chest and normal palpation of entire chest wall Resp: Effort & Inspection: normal respiratory effort and able to speak in complete sentences Auscultation: clear to auscultation bilaterally Cardio: Jugular venous distension: no JVD Heart sounds: S1 normal heart sound present and S2 normal heart sound present GI: Inspection: Yes normal to inspection and No abdominal wall ecchymosis Palpation (GI): Soft to palpation, not firm, nontender, no guarding and not rigid : General: No CVA tenderness and Yes no CVA tenderness Back/Spine/Pelvis: Back: no CVA tenderness, No CVA tenderness and No back tenderness Skin: General skin exam: no rashes or lesions noted and elasticity normal Neuro: General: patient oriented x3, gait normal, no meningeal signs and CN's II-XI intact bilaterally Cranial nerves: Yes CN's II-XII intact bilaterally Extrem: General: Yes normal to inspection and Yes full ROM Psych: Appearance: grossly normal, well kempt and not disheveled Course Course Course Narrative: CHest xray and covid ordered Reevaluation(s) Reevaluation #1: positive for covid. Chest xray normal. patietn is not in respiratory distress. MDM - URI/Sore Throat MDM Narrative Medical decision making narrative: covid Lab Data Labs: Lab Results 07/11/21 Range/Units 17:03 COVID-19 (AVA) Positive A (Negative) COVID-19 Clin Com See Note Discharge Plan Discharge Clinical Impression: COVID-19 Patient Disposition: Home, Self-Care Instructions: COVID-19 (Coronavirus Disease 2019) (ED) Additional Instructions: You are positive for covid. Recommend 14 days self-isolation. Return to ED for any chest pain, shortness of breath, weakness, dizziness, or any other concerning symptoms. Prescriptions: No Action ibuprofen 800 mg tablet 800 mg PO Q8H PRN (Reason: pain) Qty: 14 RF: 0 diazepam [Valium] 5 mg tablet 5 mg PO TID PRN (Reason: muscle spasm) Qty: 14 RF: 0 cephalexin 500 mg capsule 500 mg PO Q12H 7 Days Qty: 14 RF: 0 phenazopyridine [Pyridium] 100 mg tablet 100 mg PO TID PRN (Reason: pain) Qty: 6 RF: 0 ketorolac 10 mg tablet 10 mg PO TID PRN (Reason: pain) 5 Days Qty: 7 RF: 0 metoclopramide HCl [Reglan] 5 mg tablet 5 mg PO .B.i.d. PRN (Reason: nausea and vomiting) Qty: 7 RF: 0 Stand Alone Forms: Work/School Release Discharge Date/Time: 07/11/21 21:37 Print Language: Welsh
== END 2021-07-11 21:37 | disposition home or self-care (01) ==
PROVIDERS: Emergency Provider Emergency Medicine Emergency Medical Services
DX: U07.1 COVID-19 (principal)
CPT/HCPCS: 36415; 71045; 87635; 99282; 99283

== ENCOUNTER 2022-04-03 09:52 | Outpatient (REF) | payer MEDICAID, OTHER, SELFPAY ==
--- NOTE | 2022-04-03 | PFT_ITS ---
INDICATION: Shortness of breath. SPIROMETRY: FEV1 to FVC 88% predicted with an FEV1 of 2.86 L, which is 104% predicted; an FVC of 3.26 L, which is 100% predicted. No significant response to bronchodilators noted. Maximum voluntary ventilation 91% predicted. LUNG VOLUMES: Total lung capacity 92% predicted. Expiratory reserve volume only 32% predicted. DIFFUSION CAPACITY: DLCO 103% predicted. COMPARISONS: None. INTERPRETATION: No obstructive nor restrictive ventilatory defects identified. No significant response to bronchodilators noted. Normal maximum voluntary ventilation. Lung volumes appeared to be normal except for a decrease of residual volume, functional residual capacity, and expiratory reserve volume. Therefore suggesting decrease pulmonary reserve. Diffusion capacity is within normal limits. Clinical correlation warranted. If asthma is in the differential, methacholine challenge may be helpful in assessing for hyper-reactive airways. MD GLENDY Stewart/MODL / [id number] MTDD
== END 2022-04-03 09:53 | disposition home or self-care (01) ==
LOC: HO.RESP 09:52
PROVIDERS: PCP General Practice; Visit Provider General Practice
DX: R06.02 Shortness of breath (principal); R06.81 Apnea, not elsewhere classified
CPT/HCPCS: 94060; 94727; 94729

== ENCOUNTER 2022-06-27 18:11 | Emergency (ER) | payer MEDICAID, OTHER, SELFPAY ==
--- NOTE | ~2022-06-27 | XR_ITS ---
EXAMINATION: XR CHEST CLINICAL INFORMATION: Fevers and cough COMPARISON: 07/11/2021 TECHNIQUE: 2 views of the chest were obtained. FINDINGS: No significant abnormality is noted involving the heart, lungs, mediastinum, bony thorax or soft tissues. XR/XR chest 2V IMPRESSION: Unremarkable examination.
[2022-06-27 19:32] VITALS: BP 123/61; PULSE 124; RESP 18; TEMP 36.8; O2SAT 99; BMI 20.7
--- NOTE | 2022-06-27 19:33 | ED.URI ---
HPI - URI/Sore Throat General Chief Complaint: Fever <CAROLA Byrne - Last Filed: 06/27/22 19:37> Stated Complaint: Flu like symptoms <CAROLA Byrne - Last Filed: 06/27/22 19:37> Time Seen by Provider: 06/27/22 21:13 <CAROLA Byrne - Last Filed: 06/27/22 19:37> Source: patient <Clary Salazar MD - Last Filed: 06/27/22 21:30> Mode of arrival: ambulatory <Clary Salazar MD - Last Filed: 06/27/22 21:30> Limitations: no limitations <Clary Salazar MD - Last Filed: 06/27/22 21:30> History of Present Illness HPI Narrative: 37-year-old female presented with cough, body ache, generalized joint pain, coughing, sneezing, runny nose since yesterday, no known exposure to sick contact. <Clary Salazar MD - Last Filed: 06/27/22 21:30> Related Data Home Medications: Previous Rx's Medication Instructions Recorded diazepam 5 mg tablet (Valium) 5 mg PO TID PRN muscle spasm #14 10/23/20 tabs ibuprofen 800 mg tablet 800 mg PO Q8H PRN pain #14 tabs 10/23/20 cephalexin 500 mg capsule 500 mg PO Q12H 7 days #14 caps 01/27/21 phenazopyridine 100 mg tablet 100 mg PO TID PRN pain 6 doses #6 01/27/21 (Pyridium) tabs ketorolac 10 mg tablet 10 mg PO TID PRN pain 5 days #7 05/24/21 tabs metoclopramide HCl 5 mg tablet 5 mg PO .B.i.d. PRN nausea and 05/24/21 (Reglan) vomiting #7 tabs oseltamivir 75 mg capsule (Tamiflu) 75 mg PO BID 5 days #10 caps 06/27/22 <CAROLA Byrne - Last Filed: 06/27/22 19:37> Allergies/Adverse Reactions: Allergies Allergy/AdvReac Type Severity Reaction Status Date / Time ANTIBIOTIC Allergy Intermediate UNKNOWN Uncoded 04/01/20 17:53 WHICH ABX, RASH ON BODY <CAROLA Byrne - Last Filed: 06/27/22 19:37> Review of Systems Review of Systems: All other systems are reviewed and are negative Constitutional: Reports as per HPI and Reports no additional constitutional complaints Eyes: Reports as per HPI and Reports no additional eye complaints Reports system reviewed and no additional complaints, except as documented Cardiovascular: Reports as per HPI and Reports no additional cardiovascular complaints Respiratory: Reports as per HPI and Reports no additional respiratory complaints Gastrointestinal: Reports as per HPI and Reports no additional gastrointestinal complaints Genitourinary: Reports no additional female genitourinary complaints Musculoskeletal: Reports no additional musculoskeletal complaints Skin/Breast: Reports system reviewed and no additional complaints, except as docu Psychiatric: Reports no additional psychiatric complaints Endocrine: Reports no additional endocrine complaints Hematologic/Lymphatic: Reports no additional hematologic/lymphatic complaints Allergic/Immunologic: Reports no additional allergic/immunologic complaints Reports system reviewed and no additional complaints, except as documented and Reports Abnormal speech present <Clary Salazar MD - Last Filed: 06/27/22 21:30> [facility] Past Medical History Medical History: Medical History Meningitis Migraine headache No known health problems <CAROLA Byrne - Last Filed: 06/27/22 19:37> Surgical History: Surgical History History of appendectomy <CAROLA Byrne - Last Filed: 06/27/22 19:37> Social History Social History: Social History Alcohol intake: never Patient Tobacco Use Status: Never used Tobacco Advance Directives: No Advance Directives Information Provided: No <CAROLA Byrne - Last Filed: 06/27/22 19:37> Physical Exam Vital Signs: Vital Signs: Last Vital Signs Temp 98.3 F 06/27/22 19:32 Pulse 124 H 06/27/22 19:32 Resp 18 06/27/22 19:32 BP 123/61 06/27/22 19:32 Pulse Ox 99 06/27/22 19:32 O2 Del Method 06/27/22 19:32 BMI result Body Mass Index 20.7 <CAROLA Byrne - Last Filed: 06/27/22 19:37> Vital Signs: Last Vital Signs Temp 98.3 F 06/27/22 19:32 Pulse 124 H 06/27/22 19:32 Resp 18 06/27/22 19:32 BP 123/61 06/27/22 19:32 Pulse Ox 99 06/27/22 19:32 O2 Del Method 06/27/22 19:32 BMI result Body Mass Index 20.7 Vital signs have been reviewed as appeared to be correct. Blood pressure normal. Heart rate elevated. Respiration rate normal. Temperature normal. Oxygen saturation normal. <Clary Salazar MD - Last Filed: 06/27/22 21:30> Appearance: Alert. Oriented X3. No acute distress. Head: Normal external exam. Normocephalic. Atraumatic. No Valdez signs noted. No raccoon eyes noted Eyes: PERRLA. EOMI. Conjunctiva and sclera normal. Eyelids normal. ENT: TM's Normal. Pharynx normal. Uvula midline. Moist mucous membranes. No trismus noted. No drooling noted. No muffled voice noted. Neck: Normal inspection. Neck supple. FROM. No adenopathy. Thyroid Normal. No meningeal signs. No neck mass noted. CVS: Normal heart rate and rhythm. Heart sound normal. No murmurs noted. Pulses normal throughout. Respiratory: No respiratory distress. Painless inspiration. Breath sounds normal. No wheezes/rales/rhonchi noted. Chest nontender. No accessory muscle usage noted or decreased air movement noted. Abdomen: Soft and nontender. Bowel sounds normal in all 4 quadrants. No distention noted. No organomegaly noted. No visible injury noted. Back: No CVA tenderness. Full range of motion noted. Skin: Skin warm and dry. Normal skin color. Normal skin turgor. No rashes/lesions/lacerations noted. Extremities: No lower extremity edema. Extremities exhibit normal range of motion. Extremities nontender. Neuro: Oriented X 3. Cranial nerve exam: II-XII are grossly intact No motor deficit. No sensory deficit. Reflexes normal. <Clary Salazar MD - Last Filed: 06/27/22 21:30> Course Course Course Narrative: 19:35pm - 37yoF presenting to the ER with complaints of fevers, chills, fatigue, slightly sore throat, resolved ear pain and a cough with sputum production since yesterday worse today. Denies any other symptoms complaints or concerns at this time. Plan: Chest x-ray and COVID/RSV/flu swab ordered at this time. Patient is stable she will be sent back to the waiting room for further evaluation treatment Emergency minor care. <CAROLA Byrne - Last Filed: 06/27/22 19:37> Reevaluation(s) Reevaluation #1: Influenza A positive, symptoms started since yesterday will start on Tamiflu, frequent handwashing, to wear a face mask at all times, self-quarantine until symptoms improved. <Clary Salazar MD - Last Filed: 06/27/22 21:30> Time: 21:29 <Clary Salazar MD - Last Filed: 06/27/22 21:30> Medical Decision Making Differential Diagnosis Differential Diagnoses: The differential diagnosis associated with the presentation includes (RSV/influenza/COVID 19 infection/pneumonia) <Clary Salazar MD - Last Filed: 06/27/22 21:30> Lab Data MDM Lab Attestation statement: I reviewed the patient's lab results. <Clary Salazar MD - Last Filed: 06/27/22 21:30> Labs: Lab Results 06/27/22 Range/Units 19:36 Influenza Type A (PCR) POSITIVE A (Negative) Influenza Type B (PCR) NEGATIVE (Negative) RSV RNA Qual (PCR) NEGATIVE (Negative) SARS-CoV-2 RNA (RT-PCR) NEGATIVE (Negative) <CAROLA Byrne - Last Filed: 06/27/22 19:37> Lab Results 06/27/22 Range/Units 19:36 Influenza Type A (PCR) POSITIVE A (Negative) Influenza Type B (PCR) NEGATIVE (Negative) RSV RNA Qual (PCR) NEGATIVE (Negative) SARS-CoV-2 RNA (RT-PCR) NEGATIVE (Negative) <Clary Salazar MD - Last Filed: 06/27/22 21:30> Independent Interpretation I performed an independent interpretation of an: Plain X-Ray (Chest no acute intrathoracic pathology.) <Clary Salazar MD - Last Filed: 06/27/22 21:30> Radiology Impression Discussion of test interpretation with radiology: I have reviewed the radiologist's reading. <Clary Salazar MD - Last Filed: 06/27/22 21:30> Discharge Plan Discharge Clinical Impression: Influenza <CAROLA Byrne - Last Filed: 06/27/22 19:37> Patient Disposition: Home, Self-Care <CAROLA Byrne - Last Filed: 06/27/22 19:37> Instructions: Influenza (ED) <CAROLA Byrne - Last Filed: 06/27/22 19:37> Additional Instructions: Frequent handwashing, use face mask at all times, keep social distance, self quarantine until symptoms improve <CAROLA Byrne - Last Filed: 06/27/22 19:37> Prescriptions: New oseltamivir [Tamiflu] 75 mg capsule 75 mg PO BID 5 Days Qty: 10 0RF No Action ibuprofen 800 mg tablet 800 mg PO Q8H PRN (Reason: pain) Qty: 14 0RF diazepam [Valium] 5 mg tablet 5 mg PO TID PRN (Reason: muscle spasm) Qty: 14 0RF cephalexin 500 mg capsule 500 mg PO Q12H 7 Days Qty: 14 0RF phenazopyridine [Pyridium] 100 mg tablet 100 mg PO TID PRN (Reason: pain) Qty: 6 0RF ketorolac 10 mg tablet 10 mg PO TID PRN (Reason: pain) 5 Days Qty: 7 0RF Rx Instructions: Do not take with Aleve/ibuprofen, only Tylenol if needed metoclopramide HCl [Reglan] 5 mg tablet 5 mg PO .B.i.d. PRN (Reason: nausea and vomiting) Qty: 7 0RF Rx Instructions: Take together with ketorolac p.r.n. migraines <CAROLA Byrne - Last Filed: 06/27/22 19:37> Referrals: Aura Allen MD [Primary Care Provider] - <CAROLA Byrne - Last Filed: 06/27/22 19:37>
[2022-06-27 20:29] LABS: Influenza A PCR POSITIVE (Negative); Influenza B PCR NEGATIVE (Negative); Resp Syncy Virus RNA Qual PCR NEGATIVE (Negative); SARS COV2 PCR INHOUSE NEGATIVE (Negative)
--- NOTE | 2022-06-27 21:38 | PC.NURSE ---
pt stated flu symptoms began once day ago, pt resting comfortably with warm blanket,awaiting lab results and dc orders.
== END 2022-06-27 22:11 | disposition home or self-care (01) ==
PROVIDERS: Physician Assistant Medical; Emergency Provider Emergency Medicine; PCP General Practice
DX: J10.1 Influenza due to other identified influenza virus with other respiratory manifestations (principal); R50.9 Fever, unspecified; M79.10 Myalgia, unspecified site; R05.9 Cough, unspecified; Z20.822 Contact with and (suspected) exposure to COVID-19; Z79.899 Other long term (current) drug therapy
CPT/HCPCS: 0241U; 71046; 99282; 99283

== ENCOUNTER 2022-11-11 21:50 | Emergency (ER) | payer MEDICAID, OTHER, SELFPAY ==
[2022-11-11 21:57] VITALS: BP 121/73; PULSE 78; RESP 16; TEMP 36.8; O2SAT 100; BMI 24.1
[2022-11-11 22:30] LABS: MANUAL DIFF FLAG NO
[2022-11-11 22:42] LABS: Basophils Percent Auto 0.4 % (0-2); Eosinophils Absolute Auto 0.1 X10*3/uL (0.0-0.4); Eosinophils Percent Auto 1.3 % (0-4); Hematocrit 37.3 % (37.0-47.0); Imm Gran Abs Auto 0.02 X10*3/uL (0.00-0.03); Imm Gran Pct Auto 0.2 % (0.0-0.4); Lymphocytes Absolute Auto 3.2 X10*3/uL (1.2-4.9); Lymphocytes Percent Auto 32.9 % (20-40); Mean Corpuscular HGB Conc 34.9 g/dl (31.0-35.0); Mean Corpuscular Volume 85.9 fL (80.0-98.0); Monocytes Absolute Auto 0.7 X10*3/uL (0.1-1.2); Monocytes Percent Auto 6.7 % (2-11); Neutrophils Absolute Auto 5.7 x10*3/uL (2.0-8.3); Neutrophils Percent Auto 58.5 % (45-73); Platelet Count 252 X10*3/uL (160-400); Red Blood Count 4.34 X10*6/uL (4.20-5.50); Red Cell Distribution Width 11.3 % (11.0-16.0); White Blood Count 9.7 X10*3/uL (4.8-10.8)
[2022-11-11 22:45] LABS: Alanine Aminotransferase 26 U/L (0-31); Albumin Level 4.4 g/dL (3.5-5.0); Alkaline Phosphatase 49 U/L (39-117); Anion Gap 13 (12-20); Aspartate Amino Transferase 18 U/L (5-31); Bilirubin Total 0.2 mg/dL (0.0-1.0); Blood Urea Nitrogen 16 mg/dL (9-16); Calcium 9.7 mg/dL (8.4-10.2); Carbon Dioxide 22 mmol/L (22-29); Chloride 106 mmol/L (96-108); Creatinine Clr Calc Pharmacy 79.4; Estimated Glomerular Filt Rate > 60; Glucose Random 108 mg/dL (60-115); Potassium 3.8 mmol/L (3.3-5.1); Sodium 137 mmol/L (135-145); Total Protein 7.1 g/dL (6.5-8.0)
[2022-11-12 00:26] VITALS: BP 124/56; PULSE 83; RESP 20; TEMP 37.2; O2SAT 100
[2022-11-12 00:39] LABS: Appearance Urine Clear; Color Urine Yellow; Glucose Urine UA Negative (Negative); Leukocyte Esterase Urine Trace (Negative); Nitrite Urine Negative (Negative); PH 6.5 (5.0-9.0); Specific Gravity - Urine 1.015 (1.005-1.025); UMIC TRIGGER UACC YES; Urine Blood Negative (Negative); Urine Ketones Negative (Negative); Urine Protein Negative (Neg-Trace)
[2022-11-12 00:43] LABS: Bacteria Urine None Seen (None Seen); Hyaline Casts Urine 0-2 /LPF (0-2); RBC Urine 0-2 /HPF (0-2); WBC Urine 0-5 /HPF (0-5)
--- NOTE | 2022-11-12 01:23 | ED_ITS ---
HPI - General Adult General Chief complaint: Abdominal Pain Stated complaint: left abd pain, fever, headache Time Seen by Provider: 11/12/22 01:15 Source: patient Mode of arrival: ambulatory Limitations: no limitations History of Present Illness HPI narrative: Patient comes to the emergency room complaining of 6 days of suprapubic discomfort, bladder spasm sensation. Patient states that 6 days ago she started having the symptoms, then 4 days ago she was seen by her PCP, diagnosed with a UTI, started on Bactrim. Patient states the Bactrim makes her feel ?weird?. Patient states that earlier today in the morning she had a fever of 103. When patient arrived to emergency room, patient did not have a fever. Patient denies flank pain, no abdominal pain, other than suprapubic discomfort with urination. Denies hematuria. Related Data Previous Rx's Medication Instructions Recorded diazepam 5 mg tablet (Valium) 5 mg PO TID PRN muscle spasm #14 10/23/20 tabs ibuprofen 800 mg tablet 800 mg PO Q8H PRN pain #14 tabs 10/23/20 cephalexin 500 mg capsule 500 mg PO Q12H 7 days #14 caps 01/27/21 phenazopyridine 100 mg tablet 100 mg PO TID PRN pain 6 doses #6 01/27/21 (Pyridium) tabs ketorolac 10 mg tablet 10 mg PO TID PRN pain 5 days #7 05/24/21 tabs metoclopramide HCl 5 mg tablet 5 mg PO .B.i.d. PRN nausea and 05/24/21 (Reglan) vomiting #7 tabs oseltamivir 75 mg capsule (Tamiflu) 75 mg PO BID 5 days #10 caps 06/27/22 levofloxacin 500 mg tablet 500 mg PO DAILY #6 tabs 11/12/22 Allergies Allergy/AdvReac Type Severity Reaction Status Date / Time ANTIBIOTIC Allergy Intermediate UNKNOWN Uncoded 04/01/20 17:53 WHICH ABX, RASH ON BODY Review of Systems Review of Systems: Constitutional : No Weight loss, No Fever, No Chills, No Night Sweats, No Fatigue, No Malaise ENT/Mouth : No Hearing loss, No Ear Pain, No Nasal Congestion, No Sinus Pain, No Hoarseness, No sore throat, No Rhinorrhea, No Swallowing Difficulty Eyes: No Eye Pain, No Swelling, No Redness, No Foreign Body, No Discharge, No Vision Changes Cardiovascular : No Chest Pain, No SOB, No Dyspnea on Exertion, No Orthopnea, No Edema, No Palpitations Respiratory : No Cough, No Sputum, No Wheezing, No Smoke Exposure, No Dyspnea Gastrointestinal : No Nausea, No Vomiting, No Diarrhea, No Constipation, No abdominal Pain, No Hematochezia, No Melena Genitourinary : no irregular bleeding, complaining of dysuria and bladder spasms,, No Urinary Frequency, No Hematuria, No Urinary Incontinence, No Urgency, No Flank Pain, No Urinary Flow Changes, No Hesitancy Musculoskeletal : No joint pain, No Myalgias, No Joint Swelling Skin : No Skin Lesions, No rash Neuro : No Weakness, No Numbness, No Paresthesias, No Loss of Consciousness, No Dizziness, No Headache Psych : No Anxiety/Panic, No Depression, No SI/HI/AH/VH, No Social Issues, Heme/Lymph: No Bruising, No Bleeding,No Lymphadenopathy Endocrine : No Polyuria, No Polydipsia, No Temperature Intolerance [facility] Past Medical History Medical History Meningitis Migraine headache No known health problems Surgical History History of appendectomy Social History Social History Alcohol intake: never Patient Tobacco Use Status: Never used Tobacco Smoked in Last 30 Days: No Use of substances other than those prescribed or required for medical reasons: No Advance Directives: No Advance Directives Information Provided: No Physical Exam ED Vital Signs: Vital Signs - 24 hr 11/11/22 21:57 11/12/22 00:26 Temperature 98.3 F 98.9 F Pulse Rate 78 83 Respiratory Rate 16 20 Blood Pressure 121/73 124/56 L Pulse Oximetry 100 100 Oxygen Delivery Method Room Air Room Air BMI result Body Mass Index 24.1 Const Other: Appearance: Alert. Oriented X3. No acute distress. Eyes: Pupils equal, round and reactive to light. ENT: Pharynx normal. Neck: Normal inspection. Neck supple. No lymph nodes noted. No crepitus CVS: Normal heart rate and rhythm. Pulses normal. Normal S1 and S2 Respiratory: No respiratory distress. Breath sounds normal. No Wheezing. No rales Abdomen: Soft and nontender. No rigidity. No distention. Skin: Skin warm and dry. Normal skin color. Normal skin turgor. Extremities: No lower extremity edema. No Lacerations. No Rash Neuro: Oriented X 3. No motor deficit. No sensory deficit. Moving all extremities. No slurred speech. CN 2 through 12 grossly intact Psych: calm, cooperative, normal affect Medical Decision Making Medical Decision Making MDM Narrative: -patient while blood cell count within normal limits, normal vitals, no fever. No flank pain or abdominal pain. Pyelonephritis and sepsis are not suspected. -patient has 2 more days of Bactrim, however patient is reluctant to keep taking this medication because it makes her feel ?weird?. Discussed with the patient that we can switch her antibiotic, patient agreeable. Differential Diagnosis Differential Diagnoses: The differential diagnosis associated with the presentation includes (UTI, pyelonephritis) Lab Data 11/11/22 22:26 11/11/22 22:26 Labs: Lab Results 11/11/22 11/11/22 11/12/22 Range/Units 22:26 22:26 00:33 WBC 9.7 (4.8-10.8) X10*3/uL RBC 4.34 (4.20-5.50) X10*6/uL Hgb 13.0 (12.0-16.0) g/dl Hct 37.3 (37.0-47.0) % MCV 85.9 (80.0-98.0) fL MCH 30.0 (27.0-33.0) pg MCHC 34.9 (31.0-35.0) g/dl RDW 11.3 (11.0-16.0) % Plt Count 252 (160-400) X10*3/uL MPV 10.0 (9.4-12.3) fL Immature Gran % (Auto) 0.2 (0.0-0.4) % Neut % (Auto) 58.5 (45-73) % Lymph % (Auto) 32.9 (20-40) % [place] % (Auto) 6.7 (2-11) % Eos % (Auto) 1.3 (0-4) % Baso % (Auto) 0.4 (0-2) % Lymph # (Auto) 3.2 (1.2-4.9) X10*3/uL [place] # (Auto) 0.7 (0.1-1.2) X10*3/uL Eos # (Auto) 0.1 (0.0-0.4) X10*3/uL Baso # (Auto) 0.0 (0.0-0.2) X10*3/uL Abs Immat Gran (auto) 0.02 (0.00-0.03) X10*3/uL Absolute Neuts (auto) 5.7 (2.0-8.3) x10*3/uL Absolute Nucleated RBC 0.000 (0.0-0.012) X10*3/uL Nucleated RBC % (auto) 0.0 (0.0-0.2) /100WBC Sodium 137 (135-145) mmol/L Potassium 3.8 D (3.3-5.1) mmol/L Chloride 106 (96-108) mmol/L Carbon Dioxide 22 (22-29) mmol/L Anion Gap 13 (12-20) BUN 16 (9-16) mg/dL Creatinine 0.81 (0.5-1.4) mg/dL Estim Creat Clear Calc 79.4 Estimated GFR > 60 Random Glucose 108 (60-115) mg/dL Calcium 9.7 D (8.4-10.2) mg/dL Total Bilirubin 0.2 (0.0-1.0) mg/dL AST 18 (5-31) U/L ALT 26 (0-31) U/L Alkaline Phosphatase 49 (39-117) U/L Total Protein 7.1 (6.5-8.0) g/dL Albumin 4.4 (3.5-5.0) g/dL Urine Color Yellow Urine Appearance Clear Urine pH 6.5 (5.0-9.0) Ur Specific [place] 1.015 (1.005-1.025) Urine Protein Negative (Neg-Trace) mg/dL Urine Glucose (UA) Negative (Negative) mg/dL Urine Ketones Negative (Negative) mg/dL Urine Blood Negative (Negative) Urine Nitrite Negative (Negative) Ur Leukocyte Esterase Trace H (Negative) Urine RBC 0-2 (0-2) /HPF Urine WBC 0-5 (0-5) /HPF Ur Squamous Epith Cells 6-10 (0-2) /HPF Urine Bacteria None Seen (None Seen) Hyaline Casts 0-2 (0-2) /LPF Discharge Plan Discharge Clinical Impression: UTI (urinary tract infection) Patient Disposition: Home, Self-Care Instructions: Urinary Tract Infection in Women (ED) Additional Instructions: Please follow-up with your primary care physician tomorrow. If you have any worsening or new symptoms, please return to the emergency room or call 911 Prescriptions: New levofloxacin 500 mg tablet 500 mg PO DAILY Qty: 6 0RF No Action ibuprofen 800 mg tablet 800 mg PO Q8H PRN (Reason: pain) Qty: 14 0RF diazepam [Valium] 5 mg tablet 5 mg PO TID PRN (Reason: muscle spasm) Qty: 14 0RF cephalexin 500 mg capsule 500 mg PO Q12H 7 Days Qty: 14 0RF phenazopyridine [Pyridium] 100 mg tablet 100 mg PO TID PRN (Reason: pain) Qty: 6 0RF oseltamivir [Tamiflu] 75 mg capsule 75 mg PO BID 5 Days Qty: 10 0RF ketorolac 10 mg tablet 10 mg PO TID PRN (Reason: pain) 5 Days Qty: 7 0RF Rx Instructions: Do not take with Aleve/ibuprofen, only Tylenol if needed metoclopramide HCl [Reglan] 5 mg tablet 5 mg PO .B.i.d. PRN (Reason: nausea and vomiting) Qty: 7 0RF Rx Instructions: Take together with ketorolac p.r.n. migraines
[2022-11-12] MEDS: levoFLOXacin 500 MG TABLET PO (01:38)
== END 2022-11-12 01:41 | disposition home or self-care (01) ==
PROVIDERS: Emergency Provider Emergency Medicine; PCP General Practice
DX: N39.0 Urinary tract infection, site not specified (principal); R50.9 Fever, unspecified; R51.9 Headache, unspecified; R10.32 Left lower quadrant pain; Z79.899 Other long term (current) drug therapy
CPT/HCPCS: 36415; 80053; 81001; 85025; 99284

== ENCOUNTER 2023-05-07 11:12 | Outpatient (REF) | payer MEDICAID, OTHER, SELFPAY ==
--- NOTE | ~2023-05-07 | CT_ITS ---
EXAMINATION: CT HEAD WITHOUT CONTRAST CLINICAL INFORMATION: Headaches. COMPARISON: Head CT dated 05/20/2013. TECHNIQUE: Contiguous axial imaging was performed from the skullbase to vertex without intravenous administration of contrast. This CT examination was performed using dose optimization techniques as appropriate, variously including the following: *Automated exposure control *Adjustment of mA and/or kV according to patient size (this includes techniques or standardized protocols for targeted exams where dose is matched to indication/reason for exam; i.e. extremities or head) *Use of iterative reconstruction technique DLP: 718 mGy-cm. FINDINGS: There is no evidence of acute intracranial hemorrhage or territorial infarction. No abnormal mass effect or midline shift is seen. Pruett to white matter differentiation is well preserved. No extra-axial fluid collections are identified. The ventricles are normal in size. There is no abnormal attenuation within the brain parenchyma. The osseous structures and soft tissues are normal. The mastoid air cells are well aerated. Mild ethmoid sinus mucosal thickening noted. CT/CT head/brain wo IV con IMPRESSION: No acute intracranial pathology.
== END 2023-05-07 11:13 | disposition home or self-care (01) ==
LOC: HO.CT 11:12
PROVIDERS: PCP General Practice; Visit Provider Emergency Medicine
DX: R51.9 Headache, unspecified (principal)
CPT/HCPCS: 70450

== ENCOUNTER 2023-05-21 17:26 | Outpatient (REF) | payer MEDICAID, OTHER, SELFPAY | END 2023-05-21 17:27 | disposition home or self-care (01) | LOC: HO.HHCLNP 17:26 | PROVIDERS: Visit Provider General Practice | DX: R30.0 Dysuria (principal) | CPT/HCPCS: 87086 ==

== ENCOUNTER 2023-07-25 08:30 | Outpatient (REF) | payer MEDICAID, OTHER, SELFPAY ==
[2023-07-26 12:50] LABS: Influenza A PCR NEGATIVE (Negative); Influenza B PCR NEGATIVE (Negative); Resp Syncy Virus RNA Qual PCR NEGATIVE (Negative); SARS COV2 PCR INHOUSE NEGATIVE (Negative)
[2023-07-28 21:59] LABS: C. trachomatis RNA TMA NOT DETECTED (NOT DETECTED); N. gonorrhoeae RNA TMA NOT DETECTED (NOT DETECTED)
== END 2023-07-25 08:31 | disposition home or self-care (01) ==
LOC: HO.HHCLNP 08:30
PROVIDERS: Visit Provider Emergency Medicine
DX: R30.0 Dysuria (principal); R51.9 Headache, unspecified
CPT/HCPCS: 0241U; 81513; 87086; 87491; 87591

== ENCOUNTER 2023-11-19 11:52 | Outpatient (REF) | payer OTHER, SELFPAY ==
[2023-11-19 13:02] LABS: MANUAL DIFF FLAG NO
[2023-11-19 13:43] LABS: Basophils Percent Auto 0.3 % (0-2); Eosinophils Absolute Auto 0.1 X10*3/uL (0.0-0.4); Eosinophils Percent Auto 1.2 % (0-4); Hematocrit 40.2 % (37.0-47.0); Hemoglobin 13.9 g/dl (12.0-16.0); Imm Gran Abs Auto 0.03 X10*3/uL (0.00-0.03); Imm Gran Pct Auto 0.4 % (0.0-0.4); Lymphocytes Absolute Auto 2.2 X10*3/uL (1.2-4.9); Lymphocytes Percent Auto 30.7 % (20-40); Mean Corpuscular HGB Conc 34.6 g/dl (31.0-35.0); Mean Corpuscular Volume 86.8 fL (80.0-98.0); Mean Platelet Volume 10.5 fL (9.4-12.3); Monocytes Absolute Auto 0.5 X10*3/uL (0.1-1.2); Monocytes Percent Auto 7.1 % (2-11); Neutrophils Absolute Auto 4.4 x10*3/uL (2.0-8.3); Neutrophils Percent Auto 60.3 % (45-73); Platelet Count 249 X10*3/uL (160-400); Red Blood Count 4.63 X10*6/uL (4.20-5.50); Red Cell Distribution Width 11.8 % (11.0-16.0); White Blood Count 7.2 X10*3/uL (4.8-10.8)
[2023-11-19 13:55] LABS: Alanine Aminotransferase 24 U/L (0-31); Albumin Level 4.6 g/dL (3.5-5.0); Alkaline Phosphatase 56 U/L (39-117); Anion Gap 13 (12-20); Aspartate Amino Transferase 16 U/L (5-31); Bilirubin Total 0.3 mg/dL (0.0-1.0); Blood Urea Nitrogen 13 mg/dL (9-16); Calcium 10.2 mg/dL (8.4-10.2); Carbon Dioxide 23 mmol/L (22-29); Chloride 109 mmol/L (96-108); Estimated Glomerular Filt Rate > 60; Glucose Random 101 mg/dL (60-115); Potassium 4.3 mmol/L (3.3-5.1); Sodium 141 mmol/L (135-145); Total Protein 7.7 g/dL (6.5-8.0)
[2023-11-20 04:15] LABS: HIV AB/AG Nonreactive (Nonreactive); HIV Num 1 0.06 S/CO (0.00-0.99); ~HepC Num1 0.07 S/CO (0.00-0.79); ~Hepatitis C Antibody Nonreactive (Nonreactive)
[2023-11-20 12:23] LABS: RPR Rapid Plasma Reagin NON-REACTIVE (NON-REACTIVE)
== END 2023-11-19 11:53 | disposition home or self-care (01) ==
LOC: HO.HHCL 11:52
PROVIDERS: Visit Provider General Practice
DX: Z11.4 Encounter for screening for human immunodeficiency virus [HIV] (principal); Z11.3 Encounter for screening for infections with a predominantly sexual mode of transmission; R30.0 Dysuria
CPT/HCPCS: 36415; 80053; 85025; 86592; 86803; 87389

== ENCOUNTER 2024-05-05 09:37 | Outpatient (REF) | payer MEDICAID, OTHER, SELFPAY ==
[2024-05-05 11:42] LABS: MANUAL DIFF FLAG NO
[2024-05-05 11:47] LABS: Basophils Percent Auto 0.4 % (0-2); Eosinophils Absolute Auto 0.1 X10*3/uL (0.0-0.4); Eosinophils Percent Auto 1.4 % (0-4); Hemoglobin 13.4 g/dl (12.0-16.0); Imm Gran Abs Auto 0.04 X10*3/uL (0.00-0.03); Imm Gran Pct Auto 0.5 % (0.0-0.4); Lymphocytes Absolute Auto 2.6 X10*3/uL (1.2-4.9); Lymphocytes Percent Auto 31.5 % (20-40); Mean Corpuscular HGB Conc 34.4 g/dl (31.0-35.0); Mean Corpuscular Hemoglobin 29.3 pg (27.0-33.0); Mean Corpuscular Volume 85.3 fL (80.0-98.0); Mean Platelet Volume 10.5 fL (9.4-12.3); Monocytes Absolute Auto 0.5 X10*3/uL (0.1-1.2); Monocytes Percent Auto 6.5 % (2-11); Neutrophils Absolute Auto 4.9 x10*3/uL (2.0-8.3); Neutrophils Percent Auto 59.7 % (45-73); Platelet Count 260 X10*3/uL (160-400); Red Blood Count 4.57 X10*6/uL (4.20-5.50); Red Cell Distribution Width 11.7 % (11.0-16.0); White Blood Count 8.3 X10*3/uL (4.8-10.8)
[2024-05-05 12:40] LABS: TSH reflex Free T4 1.91 uIU/mL (0.32-4.0)
== END 2024-05-05 09:38 | disposition home or self-care (01) ==
LOC: HO.CHCLDS 09:37
PROVIDERS: Visit Provider General Practice
DX: R68.89 Other general symptoms and signs (principal)
CPT/HCPCS: 36415; 84443; 85025

== ENCOUNTER 2024-06-24 14:23 | Emergency (ER) | payer OTHER, SELFPAY ==
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
[2024-06-24 14:30] VITALS: BP 172/94; PULSE 98; O2SAT 96
[2024-06-24 14:32] VITALS: BP 121/73; PULSE 95; RESP 16; TEMP 36.6; O2SAT 99; BMI 26.4
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
[2024-06-24] MEDS: Ibuprofen 600 MG TABLET PO (14:54)
[2024-06-24 15:31] LABS: HCG Quantitative < 2 mIU/mL
[2024-06-24 16:21] VITALS: BP 129/76; PULSE 78; RESP 16; TEMP 36.6; O2SAT 97
[2024-06-24 17:31] VITALS: BP 129/76; PULSE 78; RESP 16; TEMP 36.6; O2SAT 97
== END 2024-06-24 17:31 | disposition still patient (30) ==
PROVIDERS: Emergency Provider Emergency Medicine; PCP General Practice
DX: S16.1XXA Strain of muscle, fascia and tendon at neck level, initial encounter (principal); V43.52XA Car driver injured in collision with other type car in traffic accident, initial encounter; Y93.9 Activity, unspecified; Y92.410 Unspecified street and highway as the place of occurrence of the external cause; Y99.9 Unspecified external cause status; M54.6 Pain in thoracic spine; M25.561 Pain in right knee
CPT/HCPCS: 36415; 70450; 72125; 73560; 84702; 99283; 99284

== ENCOUNTER → 2024-06-24 14:40 | Outpatient (BNV) | payer SELFPAY | PROVIDERS: Emergency Provider Emergency Medicine; PCP General Practice; Visit Provider Radiology Diagnostic Radiology | DX: M25.561 Pain in right knee (principal) | CPT/HCPCS: 73560 ==

== ENCOUNTER 2024-09-24 21:34 | Emergency (ER) | payer MEDICAID, OTHER, SELFPAY ==
[2024-09-24 21:37] VITALS: BP 129/78; PULSE 87; RESP 18; TEMP 36.6; O2SAT 99; BMI 26.9
[2024-09-24 21:57] LABS: MANUAL DIFF FLAG NO
[2024-09-24 21:58] LABS: Basophils Percent Auto 0.4 % (0-2); Eosinophils Absolute Auto 0.1 X10*3/uL (0.0-0.4); Eosinophils Percent Auto 1.4 % (0-4); Hematocrit 31.5 % (37.0-47.0); Hemoglobin 11.5 g/dl (12.0-16.0); Imm Gran Abs Auto 0.16 X10*3/uL (0.00-0.03); Lymphocytes Absolute Auto 1.9 X10*3/uL (1.2-4.9); Lymphocytes Percent Auto 24.4 % (20-40); Mean Corpuscular HGB Conc 36.5 g/dl (31.0-35.0); Mean Corpuscular Hemoglobin 30.1 pg (27.0-33.0); Mean Corpuscular Volume 82.5 fL (80.0-98.0); Mean Platelet Volume 9.1 fL (9.4-12.3); Monocytes Absolute Auto 0.6 X10*3/uL (0.1-1.2); Neutrophils Absolute Auto 5.1 x10*3/uL (2.0-8.3); Neutrophils Percent Auto 64.8 % (45-73); Platelet Count 252 X10*3/uL (160-400); Red Blood Count 3.82 X10*6/uL (4.20-5.50); Red Cell Distribution Width 11.8 % (11.0-16.0); White Blood Count 7.8 X10*3/uL (4.8-10.8)
[2024-09-24 22:14] LABS: Anion Gap 10 (12-20); Blood Urea Nitrogen 26 mg/dL (9-16); Carbon Dioxide 19 mmol/L (22-29); Chloride 114 mmol/L (96-108); Creatinine Clr Calc Pharmacy 67.7; Estimated Glomerular Filt Rate > 60; Glucose Random 99 mg/dL (60-115); Potassium 3.6 mmol/L (3.3-5.1); Sodium 139 mmol/L (135-145)
[2024-09-24 22:22] LABS: B Type Natriuretic Peptide 106 pg/mL (<100)
[2024-09-25 00:40] VITALS: BP 140/91; PULSE 68; RESP 16; TEMP 36.7; O2SAT 98
[2024-09-25 02:07] VITALS: BP 129/80; PULSE 76; RESP 16; TEMP 36.8; O2SAT 97
[2024-09-25 03:44] VITALS: BP 121/77; PULSE 75; RESP 16; TEMP 37; O2SAT 98
--- NOTE | 2024-09-25 04:39 | ED_ITS ---
HPI - General Adult General Chief complaint: General Medical Stated complaint: Swollen feet and hands, headache Time Seen by Provider: 09/25/24 04:20 Source: patient Mode of arrival: ambulatory Limitations: no limitations History of Present Illness ED Provider: Dr. Milena Ca HPI narrative: patient comes to the emergency room complaining of swelling of both hands and feet. Denies any pain. patient states it has been going on for a few Days. Patient denies any chest pain or shortness of breath. Denies any erythema Related Data Previous Rx's ?Medication ?Instructions ?Recorded diazepam 5 mg tablet (Valium) 5 mg PO TID PRN muscle spasm #14 10/23/20 tabs ibuprofen 800 mg tablet 800 mg PO Q8H PRN pain #14 tabs 10/23/20 cephalexin 500 mg capsule 500 mg PO Q12H 7 days #14 caps 01/27/21 phenazopyridine 100 mg tablet 100 mg PO TID PRN pain 6 doses #6 01/27/21 (Pyridium) tabs ketorolac 10 mg tablet 10 mg PO TID PRN pain 5 days #7 05/24/21 tabs metoclopramide HCl 5 mg tablet 5 mg PO .B.i.d. PRN nausea and 05/24/21 (Reglan) vomiting #7 tabs oseltamivir 75 mg capsule (Tamiflu) 75 mg PO BID 5 days #10 caps 06/27/22 levofloxacin 500 mg tablet 500 mg PO DAILY #6 tabs 11/12/22 Allergies Allergy/AdvReac Type Severity Reaction Status Date / Time ANTIBIOTIC Allergy Intermediate UNKNOWN Uncoded 09/24/24 21:40 WHICH ABX, RASH ON BODY Review of Systems 2 Review of Systems: Constitutional : No Weight loss, No Fever, No Chills, No Night Sweats, No Fatigue, No Malaise ENT/Mouth : No Hearing loss, No Ear Pain, No Nasal Congestion, No Sinus Pain, No Hoarseness, No sore throat, No Rhinorrhea, No Swallowing Difficulty Eyes: No Eye Pain, No Swelling, No Redness, No Foreign Body, No Discharge, No Vision Changes Cardiovascular : No Chest Pain, No SOB, No Dyspnea on Exertion, No Orthopnea, No Edema, No Palpitations Respiratory : No Cough, No Sputum, No Wheezing, No Smoke Exposure, No Dyspnea Gastrointestinal : No Nausea, No Vomiting, No Diarrhea, No Constipation, No abdominal Pain, No Hematochezia, No Melena Genitourinary : no irregular bleeding, No Dysuria, No Urinary Frequency, No Hematuria, No Urinary Incontinence, No Urgency, No Flank Pain, No Urinary Flow Changes, No Hesitancy Musculoskeletal : complaining of swollen hands and feet No Myalgias, No Joint Swelling Skin : No Skin Lesions, No rash Neuro : No Weakness, No Numbness, No Paresthesias, No Loss of Consciousness, No Dizziness, No Headache Psych : No Anxiety/Panic, No Depression, No SI/HI/AH/VH, No Social Issues, Heme/Lymph: No Bruising, No Bleeding,No Lymphadenopathy Endocrine : No Polyuria, No Polydipsia, No Temperature Intolerance [facility] Past Medical History Medical History Migraine headache Meningitis No known health problems Surgical History History of appendectomy Social History Social History Alcohol intake: never Patient Tobacco Use Status: Never used Tobacco Advance Directives: No Advance Directives Information Provided: Yes Do you have a plan to hurt others: No Plan Physical Exam ED Vital Signs: Vital Signs - 24 hr 09/24/24 21:37 09/25/24 00:40 09/25/24 02:07 Temperature 98 F 98.1 F 98.3 F Pulse Rate 87 68 76 Respiratory Rate 18 16 16 Blood Pressure 129/78 140/91 H 129/80 Pulse Oximetry 99 98 97 Oxygen Delivery Method Room Air Room Air Room Air 09/25/24 03:44 Temperature 98.6 F Pulse Rate 75 Respiratory Rate 16 Blood Pressure 121/77 Pulse Oximetry 98 Oxygen Delivery Method Room Air BMI result Body Mass Index 26.9 Const Other: Appearance: Alert. Oriented X3. No acute distress. Eyes: Pupils equal, round and reactive to light. ENT: Pharynx normal. Neck: Normal inspection. Neck supple. No lymph nodes noted. No crepitus CVS: Normal heart rate and rhythm. Pulses normal. Normal S1 and S2 Respiratory: No respiratory distress. Breath sounds normal. No Wheezing. No rales Abdomen: Soft and nontender. No rigidity. No distention. Skin: Skin warm and dry. Normal skin color. Normal skin turgor. Extremities: No lower extremity edema. No Lacerations. No Rash Neuro: Oriented X 3. No motor deficit. No sensory deficit. Moving all extremities. No slurred speech. CN 2 through 12 grossly intact Psych: calm, cooperative, normal affect Medical Decision Making Medical Decision Making MDM Narrative: my interpretation of labs: No significant skin abnormalities in patient's hematology and chemistry on physical exam, I do not see any swelling of the hands or feet at all. Patient is convinced that she is swollen. after I discussed with the patient that there is no significant inflammation at this time, patient states that she feels that her ribs are swollen. There is no swelling around the ribs. Then patient started complaining that she feels that she has lumps around her neck. There are no lumps around her neck, no lymphadenopathy. I discussed the patient to follow-up with the primary care physician. If patient continues having intermittent swelling with no clear cause, patient may need to have a referral to rheumatology Lab Data 09/24/24 21:53 09/24/24 21:53 Labs: Lab Results 09/24/24 Range/Units 21:53 WBC 7.8 (4.8-10.8) X10*3/uL RBC 3.82 L (4.20-5.50) X10*6/uL Hgb 11.5 L (12.0-16.0) g/dl Hct 31.5 L (37.0-47.0) % MCV 82.5 (80.0-98.0) fL MCH 30.1 (27.0-33.0) pg MCHC 36.5 H (31.0-35.0) g/dl RDW 11.8 (11.0-16.0) % Plt Count 252 (160-400) X10*3/uL MPV 9.1 L (9.4-12.3) fL Immature Gran % (Auto) 2.0 H (0.0-0.4) % Neut % (Auto) 64.8 (45-73) % Lymph % (Auto) 24.4 (20-40) % Mineral % (Auto) 7.0 (2-11) % Eos % (Auto) 1.4 (0-4) % Baso % (Auto) 0.4 (0-2) % Lymph # (Auto) 1.9 (1.2-4.9) X10*3/uL Mineral # (Auto) 0.6 (0.1-1.2) X10*3/uL Eos # (Auto) 0.1 (0.0-0.4) X10*3/uL Baso # (Auto) 0.0 (0.0-0.2) X10*3/uL Abs Immat Gran (auto) 0.16 H (0.00-0.03) X10*3/uL Absolute Neuts (auto) 5.1 (2.0-8.3) x10*3/uL Absolute Nucleated RBC 0.000 (0.0-0.012) X10*3/uL Nucleated RBC % (auto) 0.0 (0.0-0.2) /100WBC Sodium 139 (135-145) mmol/L Potassium 3.6 (3.3-5.1) mmol/L Chloride 114 H (96-108) mmol/L Carbon Dioxide 19 L (22-29) mmol/L Anion Gap 10 L (12-20) BUN 26 H (9-16) mg/dL Creatinine 0.94 (0.5-1.4) mg/dL Estim Creat Clear Calc 67.7 Estimated GFR > 60 Random Glucose 99 (60-115) mg/dL Calcium 9.0 D (8.4-10.2) mg/dL B-Natriuretic Peptide 106 H (<100) pg/mL Discharge Plan Discharge Clinical Impression: Joint pain Patient Disposition: Home, Self-Care Instructions: Arthralgia (ED) Additional Instructions: Please follow-up with your primary care physician tomorrow. If you have any worsening or new symptoms, please return to the emergency room or call 911 Prescriptions: No Action ibuprofen 800 mg tablet 800 mg PO Q8H PRN (Reason: pain) Qty: 14 0RF diazepam [Valium] 5 mg tablet 5 mg PO TID PRN (Reason: muscle spasm) Qty: 14 0RF cephalexin 500 mg capsule 500 mg PO Q12H 7 Days Qty: 14 0RF phenazopyridine [Pyridium] 100 mg tablet 100 mg PO TID PRN (Reason: pain) Qty: 6 0RF oseltamivir [Tamiflu] 75 mg capsule 75 mg PO BID 5 Days Qty: 10 0RF ketorolac 10 mg tablet 10 mg PO TID PRN (Reason: pain) 5 Days Qty: 7 0RF Rx Instructions: Do not take with Aleve/ibuprofen, only Tylenol if needed metoclopramide HCl [Reglan] 5 mg tablet 5 mg PO .B.i.d. PRN (Reason: nausea and vomiting) Qty: 7 0RF Rx Instructions: Take together with ketorolac p.r.n. migraines levofloxacin 500 mg tablet 500 mg PO DAILY Qty: 6 0RF Print Language: Latvian
[2024-09-25 05:17] VITALS: BP 121/77; PULSE 75; RESP 16; TEMP 37; O2SAT 98
== END 2024-09-25 05:32 | disposition home or self-care (01) ==
PROVIDERS: Emergency Provider Emergency Medicine; PCP General Practice
DX: M25.50 Pain in unspecified joint (principal)
CPT/HCPCS: 36415; 80048; 83880; 85025; 99283

== ENCOUNTER 2024-09-29 14:34 | Outpatient (REF) | payer MEDICAID, OTHER, SELFPAY ==
[2024-09-29 16:27] LABS: MANUAL DIFF FLAG NO
[2024-09-29 16:42] LABS: Basophils Percent Auto 0.6 % (0-2); Eosinophils Absolute Auto 0.1 X10*3/uL (0.0-0.4); Eosinophils Percent Auto 1.6 % (0-4); Hematocrit 34.7 % (37.0-47.0); Hemoglobin 11.8 g/dl (12.0-16.0); Imm Gran Abs Auto 0.04 X10*3/uL (0.00-0.03); Imm Gran Pct Auto 0.6 % (0.0-0.4); Lymphocytes Absolute Auto 1.5 X10*3/uL (1.2-4.9); Lymphocytes Percent Auto 22.3 % (20-40); Mean Corpuscular Hemoglobin 29.1 pg (27.0-33.0); Mean Corpuscular Volume 85.7 fL (80.0-98.0); Mean Platelet Volume 10.9 fL (9.4-12.3); Monocytes Absolute Auto 0.5 X10*3/uL (0.1-1.2); Monocytes Percent Auto 6.9 % (2-11); Neutrophils Absolute Auto 4.5 x10*3/uL (2.0-8.3); Platelet Count 208 X10*3/uL (160-400); Red Blood Count 4.05 X10*6/uL (4.20-5.50); Red Cell Distribution Width 12.2 % (11.0-16.0); White Blood Count 6.7 X10*3/uL (4.8-10.8)
[2024-09-29 16:52] LABS: Estimated Average Glucose 111 mg/dL; Hemoglobin A1c % 5.5 % (<6.0); Total Hemoglobin (HGBA1C) 3134.3102 umol/L
[2024-09-29 17:03] LABS: Alanine Aminotransferase 68 U/L (0-31); Albumin Level 3.5 g/dL (3.5-5.0); Alkaline Phosphatase 54 U/L (39-117); Anion Gap 9 (12-20); Aspartate Amino Transferase 39 U/L (5-31); Bilirubin Total 0.4 mg/dL (0.0-1.0); Blood Urea Nitrogen 18 mg/dL (9-16); C Reactive Protein 0.27 mg/dL (< or = 0.50); Calcium 8.6 mg/dL (8.4-10.2); Carbon Dioxide 21 mmol/L (22-29); Chloride 114 mmol/L (96-108); Cholesterol 159 mg/dL (<200); Estimated Glomerular Filt Rate > 60; Glucose Random 89 mg/dL (60-115); HDL Cholesterol 36 mg/dL (>40); LDL Cholesterol Calculated 102 mg/dL (<100); Potassium 4.2 mmol/L (3.3-5.1); Sodium 140 mmol/L (135-145); Total Protein 6.7 g/dL (6.5-8.0); Triglycerides 108 mg/dL (<150)
[2024-09-29 17:09] LABS: B Type Natriuretic Peptide 171 pg/mL (<100)
[2024-09-29 17:14] LABS: Appearance Urine Clear; Color Urine Yellow; Glucose Urine UA Negative (Negative); Leukocyte Esterase Urine Negative (Negative); Nitrite Urine Negative (Negative); Specific Gravity - Urine 1.015 (1.005-1.025); UMIC TRIGGER UACC YES; Urine Blood Negative (Negative); Urine Ketones Negative (Negative); Urine Protein 300 (3+) mg/dL (Neg-Trace)
[2024-09-29 17:20] LABS: TSH reflex Free T4 1.73 uIU/mL (0.32-4.0)
[2024-09-29 17:21] LABS: Bacteria Urine None Seen (None Seen); RBC Urine 0-2 /HPF (0-2); WBC Urine 0-5 /HPF (0-5)
[2024-09-29 17:29] LABS: Erythrocyte Sedimentation Rate 23 MM/HR (0-20)
[2024-09-29 17:38] LABS: Reflex LDLD? No
[2024-09-30 07:58] LABS: HBS Num1 10.64 mIU/mL (0-7.99); HBc Num1 0.19 S/CO (0.00-0.79); HBsAGNum1 0.29 S/CO (0.00-0.99); HIV AB/AG Nonreactive (Nonreactive); HIV Num 1 0.13 S/CO (0.00-0.99); Hepatitis A Antibody IgM 0.21 Index (0-0.79); Hepatitis B Core Antibody Nonreactive (Nonreactive); Hepatitis B Surface Antigen Negative (Negative); ~Hepatitis A Antibody IgM Nonreactive (Nonreactive); ~Hepatitis C Antibody Nonreactive (Nonreactive)
[2024-09-30 08:02] LABS: Syphilis Screen Nonreactive (Nonreactive)
[2024-09-30 09:29] LABS: HBS Num2 10.06 mIU/mL (0-7.99); HBS Num3 10.68 mIU/mL (0-7.99); ~Hepatitis B Surface Antibody GRAYZONE (Nonreactive)
[2024-10-06 11:59] LABS: ANA Titer 2 1:40 titer; Anti Nuclear Antibody Pattern Nuclear, Speckled; Anti Nuclear Antibody Screen POSITIVE (NEGATIVE); Anti Nuclear Antibody Titer 1:40 titer
== END 2024-09-29 14:35 | disposition home or self-care (01) ==
LOC: HO.HHCL 14:34
PROVIDERS: Visit Provider Internal Medicine
DX: Z11.4 Encounter for screening for human immunodeficiency virus [HIV] (principal); R80.0 Isolated proteinuria; R60.9 Edema, unspecified; R51.9 Headache, unspecified
CPT/HCPCS: 36415; 80053; 80061; 81001; 83036; 83880; 84443; 85025; 85652; 86038; 86039; 86140; 86704; 86706; 86709; 86780; 86803; 87340; 87389

== ENCOUNTER 2024-10-01 16:08 | Outpatient (REF) | payer MEDICAID, OTHER, SELFPAY ==
[2024-10-01 18:44] LABS: Anion Gap 8 (12-20); Blood Urea Nitrogen 15 mg/dL (9-16); C Reactive Protein 0.12 mg/dL (< or = 0.50); Calcium 8.4 mg/dL (8.4-10.2); Carbon Dioxide 23 mmol/L (22-29); Chloride 113 mmol/L (96-108); Estimated Glomerular Filt Rate > 60; Glucose Random 86 mg/dL (60-115); Potassium 4.3 mmol/L (3.3-5.1); Sodium 140 mmol/L (135-145)
[2024-10-03 09:30] LABS: EBV-VCA IgG Ab <18.00 U/mL; EBV-VCA IgM Ab <36.00 U/mL
[2024-10-03 14:53] LABS: Anti Nuclear Antibody Screen NEGATIVE (NEGATIVE)
== END 2024-10-01 16:09 | disposition home or self-care (01) ==
LOC: HO.HHCL 16:08
PROVIDERS: Visit Provider General Practice
DX: R80.9 Proteinuria, unspecified (principal)
CPT/HCPCS: 36415; 80048; 86038; 86140; 86664; 86665; 87086

== ENCOUNTER 2024-10-03 11:43 | Outpatient (REF) | payer MEDICAID, OTHER, SELFPAY ==
[2024-10-03 14:24] LABS: Creatinine, mg/dL 70.58
[2024-10-03 14:26] LABS: Creatinine, mg/dL 71.26; Protein mg/dL 62 mg/dL
[2024-10-03 14:55] LABS: Creatinine, 24Hr Urine 1.3 G/Day (1.0-2.0); Protein 24 Hr Urine 1163 mg/Day (<150); Total Volume 24 Hour Urine 1875 mL
[2024-10-07 07:28] LABS: Creatinine, 24Hr Urine 1.29 g/24 h (0.50-2.15); PEU-PROT/CRE Ratio mg/mg 0.913 (<0.150); PEU24-Albumin Urine 79 %; PEU24-Alpha 1 Globulin 4 %; PEU24-Alpha 2 Globulin 4 %; PEU24-Beta Globulin 9 %; PEU24-Gamma Globulin 5 %; Total Protein 24Hr Urine 1181 mg/24 h (<150); Total Protein/Creat Ratio 24h 913 mg/g creat (<150)
== END 2024-10-03 11:44 | disposition home or self-care (01) ==
LOC: HO.HHCL 11:43
PROVIDERS: Visit Provider Internal Medicine
DX: R80.9 Proteinuria, unspecified (principal); R80.0 Isolated proteinuria
CPT/HCPCS: 82570; 84156; 84166

== ENCOUNTER → 2024-10-09 13:08 | Outpatient (REF) | payer MEDICAID, OTHER, SELFPAY ==
--- NOTE | 2024-10-09 13:15 | CA_ITS ---
Transthoracic Echocardiogram Patient (Last, First, Middle): Shaina Cyr, Gender: Female Date of : 1985 Age: 39 Procedure Date: 10/09/2024 Procedure Type: Transthoracic Echocardiogram Location: OP Height: 152.4 cm Weight: 62.6 kg BSA: 1.59 m2 Heart Rate: bpm BP: 121 / 77 mmHg Forestry Supervisor: MARCIN Referring MD: Aura Allen MD Clinical Dietetic Technician: Alex Littlejohn MD Symptoms: ELEVATED BNP AND SOB R79.89 Study Quality: Adequate ECG Rhythm: Sinus Conclusions: - Essentially normal study Findings Left Ventricle Normal left ventricular size, thickness, and systolic function. The visually estimated ejection fraction is between 65-70%. Spectral Doppler is indicative of a normal filling pattern. Right Ventricle Normal right ventricular cavity size and systolic function. Atria Both atria are normal in size. There is no evidence of interatrial shunt. Aortic Valve Normal aortic valve structure and function. There is no aortic valve stenosis. There is no aortic valve regurgitation. Mitral Valve Normal mitral valve structure and function. There is trace mitral valve regurgitation. There is no mitral valve stenosis. Pulmonic Valve The pulmonic valve is likely normal. Tricuspid Valve Normal tricuspid valve structure. Tricuspid regurgitation envelope is inadequate for calculation of right ventricular systolic pressure. Normal right atrial pressure. Great Vessels All visible segments of the aorta are normal in size. The pulmonary artery was not well visualized. Venous The inferior vena cava is normal in size and collapses greater than 50% with inspiration. Pericardium/Pleural There is no evidence of pericardial effusion. Prior Study Comparison No prior study available for comparison. Measurements 2D Linear Measurements IVSd: 0.88 0.6-0.9/0.6-1.0 cm LVIDd: 3.74 3.9-5.3/4.2-5.9 cm LVIDd Index: 2.35 2.4-3.2/2.2-3.1 cm/m2 LVIDs: 2.32 2.0-3.6 cm LVPWd: 1.04 0.7-1.1 cm LA Diam: 3.10 2.7-3.8/3.0-4.0 cm LAIDs Index: 1.95 1.5-2.3 cm/m2 LV Mass: 134.57 67-162/88-224 g LV Mass Index: 84.63 43-95/49-115 g/m2 LVOT Diam: 2.00 3.0+(-)1.3 cm 2D Systolic Function EF 4C: 67.40 >55% EF 2C: 71.10 >55% EF BiP: 69.60 >55% Mitral Valve MV Pk E: 1.30 MV PK A: 0.71 MV Decel Time: 149.00 E/A: 1.80 E'Lateral: 10.00 E'Medial: 7.29 E/E' Med: 17.80 E/E' Lat: 13.00 PHT: 43.00 MVA PHT: 5.12 Decel Pike: 8.77 Aortic Valve AoV Pk Dagoberto: 1.26 AoV Mn Dagoberto: 0.96 AoV VTI: 0.28 AoV Pk Grad: 6.00 Aov Mn Grad: 4.00 PAUL Cont.VTI: 2.63 LVOT LVOT Pk Dagoberto: 1.18 LVOT Mn Dagoberto: 0.81 LVOT VTI: 0.24 LVOT Pk Grad: 6.00 LVOT Mn Grad: 3.00 LVOT Diam: 2.00 LVOT Area: 3.14 Diastolic Function MV Pk E: 1.30 MV Pk A: 0.71 E/A: 1.80 E'Medial: 7.29 E/E' Med: 17.80 E' Laterial: 10.00 E/E' Lat: 13.00 Right Ventricle TAPSE (mm): 19.60 TVS' Dagoberto: 11.40 Tricuspid Valve RA Press: 3.00 Great Vessels Aorta Sinus of Valsalva: 3.11 2.0-3.[address] [place]: 2.43 1.7-3.4 cm Ao Asc: 2.60 2.1-3.4 cm Ao Arch: 2.30 Updated in Other Vendor System with Status of Final Alex Littlejohn MD electronically signed on 10/09/2024 5:02:56 PM with status of Final
--- OUTSIDE RECORDS SUMMARY | 2024-10-09 16:15 | XMS_ITS | Encounter Summary ---
Author Organization [employer] Address [address] [facility] [address] [place] [address] Care Team Providers Care Spray Blender Name Role Phone Aura Allen MD Primary Care Provider [phone] Reason for Visit * Reason Comments Headache Encounter Details Date Type Department Care Team (Latest Contact Info) Description 09/29/2024 2:40 PM EDT Office Visit [facility] [address] [place] [phone] Anu Solorzano MD [address] [place] [address] Edema, unspecified type (Primary Dx); Isolated proteinuria without specific morphologic lesion; Acute nonintractable headache, unspecified headache type Social History Tobacco Use Types Packs/Day Years Used Date Smoking Tobacco: Never Smokeless Tobacco: Never Alcohol Use Standard Drinks/Week Comments Never 0 (1 standard drink = 0.6 oz pur e alcohol) Depression Answer Date Recorded Patient Health Questionnaire-9 Score 20 11/19/2023 Patient Health Questionnaire-9 Score 20 11/19/2023 Last PHQ-9: Questionnaire Data Not on file 0 11/19/2023 Housing Stability Answer Date Recorded What is your housing situation today? I have bib martin 11/12/[address] you li ve. Do you have problems with any of the following? None of the above 11/12/2023 Food Insecurity Answer Date Recorded Within the past 12 months, y ou worried that your food would run out before you got money to buy more: Never True 11/12/2023 Within the past 12 months,th e food you bought just didn't last and you didn't have enough money to get more: Never True Transportation Answer Date Recorded In the past 12 months, has l ack of transportation kept you from medical appts, meetings, work or from getting things needed for daily living? No 11/12/2023 Utilities Answer Date Recorded In the past 12 months, has t he electric, gas, oil or water company threatened to shut off services in your home? No 11/12/2023 Depression Answer Date Recorded Patient Health Questionnaire-2 Score 4 11/19/2023 Comments No Sex and Gender Information Value Date Recorded Sex Assigned at Female 05/15/2022 10:21 AM EDT Legal Sex Female 10:21 AM EDT Gender Identity Female 05/15/2022 10:21 AM EDT Sexual Orientation Choose not to disclose 2021 10:21 AM EDT documented as of this encounter Last Filed Vital Signs Vital Sign Reading Time Taken Comments Blood Pressure 134/87 09/29/2024 1:42 PM EDT Pulse 86 09/29/2024 1:42 PM EDT Temperature 36.9 ??C (98.4 ??F) 09/29/2024 1:42 PM ED T Respiratory Rate 16 09/29/2024 1:42 PM EDT Oxygen Saturation 99% 09/29/2024 1:42 PM EDT Inhaled Oxygen Concentration - - Weight 64 kg (141 lb) 09/29/2024 1:42 PM EDT Height - - Body Mass Index 27.54 07/03/2024 3:38 PM EST documented in this encounter Progress Notes * Anu Solorzano MD - 09/29/2024 2:40 PM EDT SUBJECTIVE: Shaina Becerra is a 39 y.o. year old female who presents for Walk In Center/[facility] and hand pain . Denies recent illness, injury, or hospitalization. Acute Concerns: Patient complains of progressive lower extremity edema, bilateral hands and facial edema mainly in the morning for the past week. She also has significant headache especially in the morning, no nausea no vomiting, no fever or chills. She was seen at [facility] on 09/24/2024 and was found with slightly elevated BNP and mild anemia. Other labs were essentially normal. She tells me she had a similar episode more than 20 years ago, she does not have any rash, oral ulcers, vaginal discharge or rash LMP none since she is using Depo injection. She has also been using ibuprofen on and off for migraines. 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 Review of Systems Constitutional: Negative for chills, fatigue and fever. HENT: Negative for congestion, ear pain, nosebleeds, rhinorrhea, sinus pressure, sore throat and trouble swallowing. Eyes: Negative for pain and discharge. Respiratory: Negative for cough, chest tightness and shortness of breath. Cardiovascular: Positive for leg swelling. Negative for chest pain and palpitations. Gastrointestinal: Negative for abdominal pain, blood in stool, constipation, diarrhea and nausea. Endocrine: Negative for polydipsia and polyuria. Genitourinary: Positive for decreased urine volume and difficulty urinating. Negative for dysuria, frequency, genital sores, pelvic pain and vaginal discharge. Musculoskeletal: Positive for arthralgias and back pain. Negative for neck pain. Skin: Negative for rash. Allergic/Immunologic: Negative for environmental allergies. Neurological: Positive for headaches. Negative for dizziness, seizures, weakness and light-headedness. Hematological: Negative for adenopathy. Psychiatric/Behavioral: Negative for agitation, behavioral problems, self-injury and suicidal ideas. OBJECTIVE: Vitals: 09/29/24 1342 BP: 134/87 Pulse: 86 Resp: 16 Temp: 98.4 ??F (36.9 ??C) SpO2: 99% Physical Exam HENT: Right Ear: Tympanic membrane and ear canal normal. Left Ear: Tympanic membrane and ear canal normal. Mouth/Throat: Mouth: Mucous membranes are moist. Pharynx: No oropharyngeal exudate or posterior oropharyngeal erythema. Eyes: Extraocular Movements: Extraocular movements intact. Conjunctiva/sclera: Conjunctivae normal. Pupils: Pupils are equal, round, and reactive to light. Comments: Lower and upper lid edema, no conjunctival discharge. Cardiovascular: Rate and Rhythm: Regular rhythm. Pulses: Normal pulses. Heart sounds: Normal heart sounds. No murmur heard. Pulmonary: Breath sounds: Normal breath sounds. Abdominal: General: Bowel sounds are normal. Palpations: Abdomen is soft. Tenderness: There is abdominal tenderness in the periumbilical area. There is right CVA tenderness and left CVA tenderness. There is no guarding or rebound. Musculoskeletal: General: Normal range of motion. Cervical back: Neck supple. Right lower le+ Pitting Edema (ankle and foot) present. Left lower le+ Pitting Edema (ankle and foot) present. Skin: General: Skin is warm. Neurological: General: No focal deficit present. Mental Status: She is alert and oriented to person, place, and time. Psychiatric: Mood and Affect: Mood normal. Behavior: Behavior normal. Office Visit on 09/29/2024 Component Date Value Ref Range Status Color, UA 09/29/2024 Yellow Final Clarity, UA 09/29/2024 Clear Final Glucose, UA 09/29/2024 Negative Final Bilirubin, UA 09/29/2024 Negative Final Ketones, UA 09/29/2024 Negative Final Spec Grav, UA 09/29/2024 1.030 Final Blood, UA 09/29/2024 Positive (A) Negative, None Detected Final Traced pH, UA 09/29/2024 6.0 Final Protein, UA 09/29/2024 2+ 125++ Final 300mg Urobilinogen, UA 09/29/2024 0.2 Final Leukocytes, UA 09/29/2024 Negative Negative, Rare, Trace Final Nitrite, UA 09/29/2024 Negative Negative, None Detected Final Appearance, UA 09/29/2024 OK Final Problem List Items Addressed This Visit Edema - Primary Rule out nephrotic syndrome versus autoimmune disorder. Ordered labs including 24-hour protein and will follow-up with PCP or earlier as needed. Follow-up urine microscopic. Advised regarding lower salt consumption, avoid ibuprofen and take Tylenol as needed headache. Relevant Orders Comprehensive Metabolic Panel TSH with Reflex to Free T4 Lipid Panel with Reflex to Direct LDL POCT urinalysis dipstick manually resulted (Completed) Urinalysis w/reflex microscopic Isolated proteinuria without specific morphologic lesion 3+ on urine dip. Order 24-hour urine protein to rule out nephrotic syndrome Follow-up with PCP in 2 days. Relevant Orders Comprehensive Metabolic Panel Syphilis Screen HIV-1/2 Antigen and Antibodies, Fourth Generation, with Reflexes Hepatitis Panel, General Culture, Urine, Routine C-reactive Protein Sed Rate by Modified Westergren ANU Screen,IFA, with Reflex to Titer and Pattern B Type Natriuretic Peptide (BNP) Protein, Total, 24-Hour Urine with Creatinine Lipid Panel with Reflex to Direct LDL Acute nonintractable headache Most likely from inflammatory disorder, rule out inflammatory or rheumatological disease Take Tylenol as needed for pain, go to ED if symptoms do not improve significantly. Avoid NSAIDs due to potential nephrotic syndrome Relevant Orders CBC auto differential Syphilis Screen HIV-1/2 Antigen and Antibodies, Fourth Generation, with Reflexes Hemoglobin A1c Follow Up: Current Outpatient Medications on File Prior to Visit Medication Sig Dispense Refill cetirizine (ZyrTEC) 10 MG tablet Take 10 mg by mouth in the morning. cholecalciferol (Vitamin D-3) 50 MCG (1999 UT) capsule Take 1 capsule by mouth at bed time. EPINEPHrine (EpiPen 2-Liam) 0.3 MG/0.3ML injection syringe Inject 0.3 mL into the shoulder, thigh, or buttocks. fluticasone (Flonase) 50 MCG/ACT nasal spray Administer 2 sprays into each nostril in the morning. medroxyPROGESTERone (Depo-Provera) 150 MG/ML injection Inject 1 mL (150 mg) into the shoulder, thigh, or buttocks every 3 (three) months. 1 mL 3 melatonin 5 MG tablet TAKE 1 OR 2 TABLETS BY MOUTH 15 MINUTES BEFORE BEDTIME sertraline (Zoloft) 25 MG tablet Take 1 tablet (25 mg) by mouth at bedtime. 90 tablet 3 triamcinolone (Kenalog) 0.1 % cream Apply topically if needed in the morning and at bedtime (pain and swelling). 30 g 2 [DISCONTINUED] cyclobenzaprine (Flexeril) 10 MG tablet Take 1 tablet (10 mg) by mouth 3 times dailyfor 10 days. 30 tablet 0 [DISCONTINUED] ibuprofen 600 MG tablet Take 1 tablet (600 mg) by mouth every 8 (eight) hours if needed for mild pain. 90 tablet 3 No current facility-administered medications on file prior to visit. documented in this encounter Miscellaneous Notes * Result Encounter Note - Anu Solorzano MD - 09/29/2024 2:40 PM EDT FYI: Today's labs showed elevated BNP and LFTs (more than last week's). I called patient and discussed labs and told her to go today to [facility] ED for addtl evaluation, specially as she was fairly symptomatic, ro CHF (right sided?) or other conditions, she agreed with POC. She will fu w PCP on 10/01 * Assessment & Plan Note - Anu Solorzano MD - 09/29/2024 2:32 PM EDT Associated Problem(s): Acute nonintractable headache Most likely from inflammatory disorder, rule out inflammatory or rheumatological disease Take Tylenol as needed for pain, go to ED if symptoms do not improve significantly. Avoid NSAIDs due to potential nephrotic syndrome * Assessment & Plan Note - Anu Solorzano MD - 09/29/2024 2:30 PM EDT Associated Problem(s): Proteinuria 3+ on urine dip. Order 24-hour urine protein to rule out nephrotic syndrome Follow-up with PCP in 2 days. * Assessment & Plan Note - Anu Solorzano MD - 09/29/2024 2:30 PM EDT Associated Problem(s): Edema Rule out nephrotic syndrome versus autoimmune disorder. Ordered labs including 24-hour protein and will follow-up with PCP or earlier as needed. Follow-up urine microscopic. Advised regarding lower salt consumption, avoid ibuprofen and take Tylenol as needed headache. documented in this encounter Plan of Treatment Upcoming Encounters Date Type Department Care Team (Late st Contact Info) Description 11/13/2024 1:00 PM EDT Clinical Support [address] [address] 12/01/2024 2:15 PM EDT Office Visit [facility] MEDICINE [address] [place] [address] Aura Allen MD [address] [place] [address] 02/10/2025 10:00 AM EDT Office Visit [facility] ADULT DENTAL [address] [place], [place] [phone] Sol Morris Scheduled Orders Name Type Priority Associated Diagnoses Orde r Schedule Protein, Total, 24-Hour Urine with Creatinine Lab Routine Isolated proteinuria without specific morphologic lesion Expected: 09/29/2024 (Approximate), Expires: 09/29/2025 Urinalysis w/reflex microscopic Lab Routine Edema, unspecified type Expected: 09/29/2024, Expires: 09/29/2025 documented as of this encounter Procedures Procedure Name Priority Date/Time Associated Diagnosis Comments SYPHILIS SCREEN Routine 09/29/2024 2:37 PM EDT Isolated proteinuria without specific morphologic lesion Acute nonintractable headache, unspecified headache type TSH W/REFLEX TO FT4 Routine 09/29/2024 2 :37 PM EDT Edema, unspecified type LIPID PANEL WITH REFLEX TO DIRECT LDL Routine 09/29/2024 2:37 PM EDT Isolated proteinuria without specific morphologic lesion Edema, unspecified type HEPATITIS PANEL, GENERAL Routine 09/29/2024 2:37 PM EDT Isolated proteinuria without specific morphologic lesion CBC WITH AUTO DIFFERENTIAL Routine 09/29/2024 2:37 PM EDT Acute nonintractable headache, unspecified headache type HIV 1/2 ANTIGEN/ANTIBODY, FOURTH GENERATION W/RFL Routine 09/29/2024 2:37 PM EDT Isolated proteinuria without specific morphologic lesion Acute nonintractable headache, unspecified headache type SED RATE BY MODIFIED WESTERGREN Routine 09/29/2024 2:37 PM EDT Isolated proteinuria without specific morphologic lesion C-REACTIVE PROTEIN Routine 09/29/2024 2: 37 PM EDT Isolated proteinuria without specific morphologic lesion B TYPE NATRIURETIC PEPTIDE (BNP) Routine 09/29/2024 2:37 PM EDT Isolated proteinuria without specific morphologic lesion HEMOGLOBIN A1C Routine 09/29/2024 2:37 PM EDT Acute nonintractable headache, unspecified headache type COMPREHENSIVE METABOLIC PANEL Routine 09/29/2024 2:37 PM EDT Isolated proteinuria without specific morphologic lesion Edema, unspecified type POCT URINALYSIS DIPSTICK Routine 09/29/2024 2:29 PM EDT Edema, unspecified type documented in this encounter Results * (ABNORMAL) Lipid Panel with Reflex to Direct LDL (09/29/2024 2:37 PM EDT) Triglycerides 108 <150 mg/dL [facility] Comment:Desirable Triglyceri de: less than 150 mg/dLBorderline High Triglyceride 150-199 mg/dLHigh Triglyceride: 200-499 mg/dLVery High Triglyceride: greater than or equal to 5OO mg/dL Cholesterol 159 <200 mg/dL [facility] Comment:Desirable Cholestero l: less than 200 mg/dLBorderline High Cholesterol: 200-239 mg/dLHigh Cholesterol: greater than 239 mg/dL LDL Cholesterol Calculated 102(H) <100 mg/dL [facility] Comment:Desirable LDL: less than 100 mg/dLNear Optimal/Above Optimal LDL: 110- 129 mg/dLBorderline High LDL: 130-159 mg/dLHigh LDL: 160-189 mg/dLVery High LDL: greater than or equal to 190 mg/dL HDL Cholesterol 36(L) >40 mg/dL [facility] Comment:Desirable HDL: great er than 40 mg/dL Note: This HDL assay may give artificially low results in patients with liver disease. Blood 09/29/2024 2:37 PM EDT 09/29/2024 4:09 PM EDT Anu Solorzano MD LAB BLOOD ORDERABLES Fin al Result Performing Organization Address City/[facility] [address]/ZIP Co de Phone Number [facility] [address] [place] [phone] * (ABNORMAL) B Type Natriuretic Peptide (BNP) (09/29/2024 2:37 PM EDT) B Type Natriuretic Peptide 171(H) <100 pg/mL [facility] Blood Venous blood specimen / Unknown 09/29/2024 2:37 PM EDT 09/29/2024 4:18 PM EDT Anu Solorzano MD LAB BLOOD ORDERABLES Fin al Result Performing Organization Address [facility] [address]/[facility] Co de Phone Number [facility] [address] [place] [phone] * (ABNORMAL) Sed Rate by Modified Eduardren (09/29/2024 2:37 PM EDT) Erythrocyte Sedimentation Rate 23(H) 0 - 20 MM/HR [facility] Comment:Patients with polycy themia and many hemoglobin abnormalitiesmay have depressed sed rates whereas patients with anemiamay have elevated sed rates. Blood Venous blood specimen / Unknown 09/29/2024 2:37 PM EDT 09/29/2024 4:18 PM EDT Anu Solorzano MD LAB BLOOD ORDERABLES Fin al Result Performing Organization Address [facility] [address]/[facility] Co de Phone Number [facility] [address] [place] [phone] * C-reactive Protein (09/29/2024 2:37 PM EDT) C Reactive Protein 0.27 < or = 0.50 mg/dL [facility] Blood Venous blood specimen / Unknown 09/29/2024 2:37 PM EDT 09/29/2024 4:09 PM EDT Anu Solorzano MD LAB BLOOD ORDERABLES Fin al Result Performing Organization Address [facility] [address]/[facility] Co de Phone Number [facility] [address] [place] [phone] * Hemoglobin A1c (09/29/2024 2:37 PM EDT) Hemoglobin A1c 5.5 <6.0 % [facility] Comment:Hemoglobin A1C Refer ence Range Adults: 4.8 - 6.0 % Non diabetic: < 6.0 % Goal: < 7.0 %Additional Action Suggested: > 8.0 %Note: Hemoglobin A1c results are invalid for patients with abnormal amounts of HbF. Blood transfusions may impact the HbA1c concentration in the patient sample. Estimated Average Glucose 111 mg/dL [facility] Comment:eAG = Estimated ave rage glucose which is %A1C expressed asaverage glucose, using the formula of the Q7C-CjaouglUovqshw Glucose study (ADAG), Diabetes Care, Vol.31,#8,Feb. 2007 Blood Venous blood specimen / Unknown 09/29/2024 2:37 PM EDT 09/29/2024 4:18 PM EDT us Anu Solorzano MD LAB BLOOD ORDERABLES Fin al Result Performing Organization Address [facility] [address]/[facility] Co de Phone Number [facility] [address] [place] [phone] * Hepatitis Panel, General (09/29/2024 2:37 PM EDT) Hepatitis A IgM Nonreactive Nonreactive [facility] Comment:IgM antibodies to CHAND V not detected; does not exclude earlyacute or recovered HAV infection. ~Hepatitis B Surface Antibody GRAYZONE Nonreactive [facility] Comment:GRAYZONE: 8.00 mIU/m L TO 11.99 mIU/mLTHE IMMUNE STATUS OF THE INDIVIDUAL SHOULD BE FURTHERASSESSED BY CONSIDERING OTHER FACTORS, SUCH CLINICALSTATUS, FOLLOW-UP TESTING, ASSOCIATED RISK FACTORS, AND THEUSE OF ADDITIONAL DIAGNOSTIC INFORMATION. Hepatitis B Core Antibody Nonreactive Nonreactive [facility] Hepatitis C Antibody Nonreactive Nonreactive [facility] Comment:Antibodies to HCV no t detected; does not exclude early acuteHCV infection. Hepatitis B Surface Ag Negative Negative [facility] Blood 09/29/2024 2:37 PM EDT 09/29/2024 4:00 PM EDT us Anu Solorzano MD LAB BLOOD ORDERABLES Fin al Result Performing Organization Address [facility] [address]/ZIP Co de Phone Number [facility] [address] [place] [phone] * HIV-1/2 Antigen and Antibodies, Fourth Generation, with Reflexes (09/29/2024 2:37 PM EDT) [facility] HIV AB/AG Nonreactive Nonreactive [facility] Comment:HIV-1 p24 Ag and/or HIV-1/HIV-2 Ab not detected.A test result that is nonreactive does not exclude thepossibility of exposure to or infection with HIV-1 and/orHIV-2. Nonreactive results in this assay for individualswith prior exposure to HIV-1 and/or HIV-2 may be due toantigen and antibody levels that are below the limit ofdetection of this assay.The [employer] HIV Ag/Ab Combo assay result andsupplemental assay results should be interpreted inconjunction with the patient's clinical presentation,history and other laboratory results. If the results areinconsistent with clinical evidence, additional testing issuggested to confirm the result. Blood Venous blood specimen / Unknown 09/29/2024 2:37 PM EDT 09/29/2024 4:00 PM EDT us Anu Solorzano MD LAB BLOOD ORDERABLES Fin al Result Performing Organization Address [facility] [address]/ZIP Co de Phone Number [facility] [address] [place] [phone] * Syphilis Screen (09/29/2024 2:37 PM EDT) Pathologist [facility] Syphilis Screen Nonreactive Nonreactive [facility] Blood 09/29/2024 2:37 PM EDT 09/29/2024 4:09 PM EDT Anu Solorzano MD LAB BLOOD ORDERABLES Fin al Result Performing Organization Address City/[facility] [address]/ZIP Co de Phone Number [facility] [address] [place] [phone] * TSH with Reflex to Free T4 (09/29/2024 2:37 PM EDT) Pathologist [facility] TSH reflex Free T4 1.73 0.32 - 4.0 uIU/mL [facility] Blood 09/29/2024 2:37 PM EDT 09/29/2024 4:09 PM EDT Anu Solorzano MD LAB BLOOD ORDERABLES Fin al Result Performing Organization Address City/[facility] [address]/[facility] Co de Phone Number [facility] [address] [place] [phone] * (ABNORMAL) Comprehensive Metabolic Panel (09/29/2024 2:37 PM EDT) Pathologist [facility] Sodium 140 135 - 145 mmol/L [facility] Potassium 4.2 3.3 - 5.1 mmol/L [facility] Chloride 114(H) 96 - 108 mmol/L [facility] Carbon Dioxide 21(L) 22 - 29 mmol/L [facility] Anion Gap 9(L) 12 - 20 [facility] Urea Nitrogen (BUN) 18(H) 9 - 16 mg/dL [facility] Creatinine, Serum 0.92 0.5 - 1.4 mg/dL [facility] Estimated Glomerular Filt Rate >60 [facility] Comment:Chronic Kidney Disea se: Estimated GFR < 60 mL/min/[id number] Kidney Disease: Estimated GFR < 15 mL/min/1.73m2 Glucose 89 60 - 115 mg/dL [facility] Calcium 8.6 8.4 - 10.2 mg/dL [facility] Bilirubin, Total 0.4 0.0 - 1.0 mg/dL [facility] Aspartate Amino Transferase 39(H) 5 - 31 U/L [facility] Alanine Aminotransferase 68(H) 0 - 31 U/L [facility] Total Protein 6.7 6.5 - 8.0 g/dL [facility] Albumin Level 3.5 3.5 - 5.0 g/dL [facility] Alkaline Phosphatase 54 39 - 117 U/L [facility] Blood Venous blood specimen / Unknown 09/29/2024 2:37 PM EDT 09/29/2024 4:09 PM EDT us Anu Solorzano MD LAB BLOOD ORDERABLES Fin al Result [facility] [address] [place] [phone] * (ABNORMAL) CBC auto differential (09/29/2024 2:37 PM EDT) White Blood Count 6.7 4.8 - 10.8 X10*3/uL [facility] Red Blood Count 4.05(L) 4.20 - 5.50 X10*6/uL [facility] Hemoglobin 11.8(L) 12.0 - 16.0 g/dl [facility] Hematocrit 34.7(L) 37.0 - 47.0 % [facility] Mean Corpuscular Volume 85.7 80.0 - 98.0 fL [facility] Mean Corpuscular Hemoglobin 29.1 27.0 - 33.0 pg [facility] Mean Corpuscular HGB Conc 34.0 31.0 - 35.0 g/dl [facility] Red Cell Distribution Width 12.2 11.0 - 16.0 % [facility] Platelet Count 208 160 - 400 X10*3/uL [facility] Mean Platelet Volume 10.9 9.4 - 12.3 fL [facility] Neutrophils Percent Auto 68.0 45 - 73 % [facility] Imm Gran Pct Auto 0.6(H) 0.0 - 0.4 % [facility] Lymphocytes Percent Auto 22.3 20 - 40 % [facility] Monocytes Percent Auto 6.9 2 - 11 % [facility] Eosinophils Percent Auto 1.6 0 - 4 % [facility] Basophils Percent Auto 0.6 0 - 2 % [facility] NRBC Pct Auto 0.0 0.0 - 0.2 /100WBC [facility] Neutrophils Absolute Auto 4.5 2.0 - 8.3 x10*3/uL [facility] Imm Gran Abs Auto 0.04(H) 0.00 - 0.03 X10*3/uL [facility] Lymphocytes Absolute Auto 1.5 1.2 - 4.9 X10*3/uL [facility] Monocytes Absolute Auto 0.5 0.1 - 1.2 X10*3/uL [facility] Eosinophils Absolute Auto 0.1 0.0 - 0.4 X10*3/uL [facility] Basophils Absolute Auto 0.0 0.0 - 0.2 X10*3/uL [facility] NRBC Abs Auto 0.000 0.0 - 0.012 X10*3/uL [facility] Blood Venous blood specimen / Unknown 09/29/2024 2:37 PM EDT 09/29/2024 4:18 PM EDT us Anu Solorzano MD LAB BLOOD ORDERABLES Fin al Result [facility] [address] [place] [address] [phone] * (ABNORMAL) POCT urinalysis dipstick manually resulted (09/29/2024 2:29 PM EDT) Color, UA Yellow Clarity, UA Clear Glucose, UA Negative Bilirubin, UA Negative Ketones, UA Negative Spec Grav, UA 1.030 Blood, UA Positive(A) Negative, None Detected Comment:Traced pH, UA 6.0 Protein, UA 2+ 125++ Comment:300mg Urobilinogen, UA 0.2 Leukocytes, UA Negative Negative, Rare, Trace Nitrite, UA Negative Negative, None Detected Appearance, UA OK Urine 09/29/2024 2:29 PM EDT Anu Solorzano MD POINT OF CARE TEST ENTER /EDIT ORDERABLES Final Result documented in this encounter Visit Diagnoses Diagnosis Edema, unspecified type- Primary 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
--- OUTSIDE RECORDS SUMMARY | 2024-10-09 16:15 | XMS_ITS | Encounter Summary ---
Author Organization [employer] Address [address] [place] [address] 7 [place] [address] Care Team Providers Care Food Service Supervisor Name Role Phone Aura Allen MD Primary Care Provider [phone] Encounter Details Date Type Department Care Team (Latest Contact Info) Description 10/31/2018 Abstract [facility] CONVERSIONS Dental, Provider, DDS Social History Tobacco Use Types Packs/Day Years Used Date Smoking Tobacco: Never Assessed Comments Unknown Sex and Gender Information Value Date Recorded Sex Assigned at Female 05/15/2022 10:21 AM EDT Legal Sex Female 10:21 AM EDT Gender Identity Female 05/15/2022 10:21 AM EDT Sexual Orientation Choose not to disclose 2021 10:21 AM EDT documented as of this encounter Plan of Treatment Upcoming Encounters Date Type Department Care Team (Late st Contact Info) Description 11/13/2024 1:00 PM EDT Clinical Support [facility] MEDICINE [address] [place] [phone] 12/01/2024 2:15 PM EDT Office Visit [facility] MEDICINE [address] [place] [address] Aura Allen MD [address] [place] [phone] 02/10/2025 10:00 AM EDT Office Visit [facility] ADULT DENTAL [address] [place] [phone] Sol Morris documented as of this encounter Visit Diagnoses Not on filedocumented in this encounter Care Teams Food Service Supervisor Relationship Specialty Start Date End Date Aura Allen MD [address] [place] [phone] PCP - General Family Medicine 03/15/20 documented as of this encounter
--- OUTSIDE RECORDS SUMMARY | 2024-10-09 16:15 | XMS_ITS | Encounter Summary ---
Author Organization [employer] Address [address] [place] [address] 7 [place] [address] Care Team Providers Care Line Out Worker Name Role Phone Aura Allen MD Primary Care Provider [phone] Reason for Visit * Reason Onset Date Comments Results 10/07/2024 Encounter Details Date Type Department Care Team ([facility] st Contact Info) Description 10/07/2024 Telephone [facility] MEDICINE [address] [place], [place] [phone] Aura Allen MD [address] [place], [place] [phone] Results Social History Tobacco Use Types Packs/Day Years [...] AM EDT documented as of this encounter Miscellaneous Notes * Telephone Encounter - Tova Barahona RN - 10/07/2024 2:00 PM EDT Tc to pt to let them know per PCP 24-hour urine showed 1100 mg protein and 1800 cc of urine. Her FANI's and other inflammatory markers are negative. I spoke with patient who was at [facility] ED waiting to be evaluated for severe headache and neck pain. I explained the test results and told her thatI was going to refer her to school lunch monitor, she agreed with the plan of care. Will follow-up labs from ED visit, she will follow-up as scheduled and we will come next week for blood work. UPEP is addedto the 24h urine test, spoke with Yani and I'll fax the add on test. Pt advised to complete bloodwork this week and change their insurance for the nephrology referral can be placed. Pt reports at this time they cannot change their insurance and advised to call our office once they do. Pt agrees to complete blood work and denies any further questions at this time. Pt advised we'll call them once the results have been reviewed by the provider and pt verbalized understanding. * Telephone Encounter - Prisca Sharma - 10/07/2024 12:51 PM EDT Tc from pt requesting a callback in regards results from 10/03/2024 documented in this encounter Plan of Treatment Upcoming Encounters Date Type Department Care Team (Late st Contact Info) Description 11/13/2024 1:00 PM EDT Clinical Support [facility] MEDICINE [address] [place] [phone] 12/01/2024 2:15 PM EDT Office Visit [facility] MEDICINE [address] [place] [phone] Aura Allen MD [address] [place] [phone] 02/10/2025 10:00 AM EDT Office Visit [facility] ADULT DENTAL [address] [place] [phone] Sol Morris documented as of this encounter Visit Diagnoses Not on filedocumented in this encounter Additional Health Concerns Assessment Noted Time PHQ-9 Depression Total Score: 20 024 11:34 AM EDT documented as of this encounter Care Teams Line Out Worker Relationship Specialty Start Date End Date Aura Allen MD [address] [place] [phone] PCP - General Family Medicine 03/15/20 documented as of this encounter
--- OUTSIDE RECORDS SUMMARY | 2024-10-09 16:15 | XMS_ITS | Encounter Summary ---
Author Organization [employer] Address [address] [place] [address] [address] [place] [address] Care Team Providers Care Project Manager Name Role Phone Aura Allen MD Primary Care Provider [phone] Encounter Details Date Type Department Care Team ([facility] Contact Info) Description 11/13/2022 Orders Only [facility] MEDICINE [address] [place] [address] [phone] Aura Allen MD [address] [place] [phone] Social History Tobacco Use Types Packs/Day Years Used Date Smoking Tobacco: Never Assessed Depression Answer Date Recorded Patient Health Questionnaire-2 Score 0 11/09/2022 Comments Unknown Sex and Gender Information Value Date Recorded Sex Assigned at Female 05/15/2022 10:21 AM EDT Legal Sex Female 10:21 AM EDT Gender Identity Female 05/15/2022 10:21 AM EDT Sexual Orientation Choose not to disclose 2021 10:21 AM EDT COVID-19 Exposure Response Date Recorded In the last 10 days, have yo u been in contact with someone who was confirmed or suspected to have Coronavirus/COVID-19? No / Unsure 11/09/2022 9:55 AM EDT documented as of this encounter Plan of Treatment Upcoming Encounters Date Type Department Care Team ([facility] Contact Info) Description 11/13/2024 1:00 PM EDT Clinical Support [facility] MEDICINE [address] [place] [address] [phone] 12/01/2024 2:15 PM EDT Office Visit [facility] MEDICINE [address] [place] [address] [phone] Aura Allen MD [address] [place] [phone] 02/10/2025 10:00 AM EDT Office Visit [facility] ADULT DENTAL [address] [place], [place] [phone] Sol Morris documented as of this encounter Visit Diagnoses Not on filedocumented in this encounter Care Teams Project Manager Relationship Specialty Start Date End Date Aura Allen MD [address] [place] [address] PCP - General Family Medicine 03/15/20 documented as of this encounter
--- OUTSIDE RECORDS SUMMARY | 2024-10-09 16:15 | XMS_ITS | Encounter Summary ---
Author Organization [employer] Address [address] [place] [address] [address] [place] [address] Care Team Providers Care Habilitation Specialist Name Role Phone Aura Allen MD Primary Care Provider [phone] Reason for Referral * Imaging (STAT) - Authorized Specialty Diagnoses / Procedures Referred By Contac t Referred To Contact Radiology Diagnoses Proteinuria, unspecified type Procedures US RENAL BI Aura Allen MD [address] [place] [address] Phone: tel: fax: [address] Phone: tel: fax: Referral ID Status Reason Start Date Expiration Date V isits Requested Visits Authorized [id number] Authorized 10/01/2024 10/01/2025 1 1 Reason for Visit * Reason Comments Pain Hands and feet as we ll as inflammation Headache Encounter Details Date Type Department Care Team (Late st Contact Info) Description 10/01/2024 3:30 PM EDT Office Visit [facility] [address], [place] [phone] Aura Allen MD [address], [place] [phone] Proteinuria, unspecified type (Primary Dx); Acute non intractable tension-type headache; Elevated brain natriuretic peptide (BNP) level Social History Tobacco Use Types Packs/Day Years Used Date Smoking Tobacco: Never Smokeless Tobacco: Never Tobacco Cessation:Counseling Given: Not Answered Alcohol Use Standard Drinks/Week Comments Never 0 [...] Sign Reading Time Taken Comments Blood Pressure 138/84 10/01/2024 3:38 PM EDT Pulse 75 10/01/2024 3:38 PM EDT Temperature 36.6 ??C (97.9 ??F) 10/01/2024 3:38 PM ED T Respiratory Rate 17 10/01/2024 3:38 PM EDT Oxygen Saturation 99% 10/01/2024 3:38 PM EDT Inhaled Oxygen Concentration - - Weight 64.5 kg (142 lb 3.2 oz) 10/01/2024 3:38 P M EDT Height 152.4 cm (5') 10/01/2024 3:38 PM EDT Body Mass Index 27.77 10/01/2024 3:38 PM EDT documented in this encounter Progress Notes * Aura Allen MD - 10/01/2024 3:30 PM EDT SUBJECTIVE: Shaina Becerra is a 39 y.o. female who presents for acute visit. Denies recent illness, ER visit, or hospitalization. Acute Concerns: Shaina complains of progressive lower extremity edema, bilateral hands and facial edema mainly in the morning for the past week. She also has significant headache especially in the morning, no nausea no vomiting, ? fever or chills. She was seen at [facility] on 09/24/2024 and was found with slightly elevated BNP and mild anemia. Seen in clinic 09/29/24 with additional labs as below, slight increase in BMP to 171, kidney function normal, proteinuria of +300. She reports a similar episode more than 20 years ago, she does not have any rash, oral ulcers, vaginal discharge or rash. Was told that she had meningitis at that time. Latest Reference Range & Units 10/01/24 16:10 Glucose 60 - 115 mg/dL 86 Urea Nitrogen (BUN) 9 - 16 mg/dL 15 Creatinine, Serum 0.5 - 1.4 mg/dL 0.77 Sodium 135 - 145 mmol/L 140 Potassium 3.3 - 5.1 mmol/L 4.3 Chloride 96 - 108 mmol/L 113 (H) Carbon Dioxide 22 - 29 mmol/L 23 Calcium 8.4 - 10.2 mg/dL 8.4 Anion Gap 12 - 20 8 (L) CULTURE, URINE, ROUTINE Rpt C Reactive Protein < or = 0.50 mg/dL 0.12 Estimated Glomerular Filt Rate >60 (H): Data is abnormally high (L): Data is abnormally low Rpt: View report in Results Review for more information Latest Reference Range & Units 09/29/24 14:37 Glucose 60 - 115 mg/dL 89 Urea Nitrogen (BUN) 9 - 16 mg/dL 18 (H) Creatinine, Serum 0.5 - 1.4 mg/dL 0.92 Sodium 135 - 145 mmol/L 140 Potassium 3.3 - 5.1 mmol/L 4.2 Chloride 96 - 108 mmol/L 114 (H) Carbon Dioxide 22 - 29 mmol/L 21 (L) Calcium 8.4 - 10.2 mg/dL 8.6 Albumin Level 3.5 - 5.0 g/dL 3.5 Bilirubin, Total 0.0 - 1.0 mg/dL 0.4 AST 5 - 31 U/L 39 (H) ALT 0 - 31 U/L 68 (H) Anion Gap 12 - 20 9 (L) Total Protein 6.5 - 8.0 g/dL 6.7 Cholesterol <200 mg/dL 159 HDL Cholesterol >40 mg/dL 36 (L) LDL Cholesterol Calculated <100 mg/dL 102 (H) Triglycerides <150 mg/dL 108 Red Blood Count 4.20 - 5.50 X10*6/uL 4.05 (L) Hemoglobin 12.0 - 16.0 g/dl 11.8 (L) Hematocrit 37.0 - 47.0 % 34.7 (L) Mean Corpuscular Volume 80.0 - 98.0 fL 85.7 Mean Corpuscular Hemoglobin 27.0 - 33.0 pg 29.1 Mean Corpuscular HGB Conc 31.0 - 35.0 g/dl 34.0 Red Cell Distribution Width 11.0 - 16.0 % 12.2 Platelet Count 160 - 400 X10*3/uL 208 Eosinophils Percent Auto 0 - 4 % 1.6 Lymphocytes Absolute Auto 1.2 - 4.9 X10*3/uL 1.5 Basophils Absolute Auto 0.0 - 0.2 X10*3/uL 0.0 Monocytes Absolute Auto 0.1 - 1.2 X10*3/uL 0.5 Neutrophils Absolute Auto 2.0 - 8.3 x10*3/uL 4.5 Neutrophils Percent Auto 45 - 73 % 68.0 Basophils Percent Auto 0 - 2 % 0.6 Eosinophils Absolute Auto 0.0 - 0.4 X10*3/uL 0.1 Lymphocytes Percent Auto 20 - 40 % 22.3 Monocytes Percent Auto 2 - 11 % 6.9 Imm Gran Abs Auto 0.00 - 0.03 X10*3/uL 0.04 (H) Imm Gran Pct Auto 0.0 - 0.4 % 0.6 (H) Hemoglobin A1c <6.0 % 5.5 TSH reflex Free T4 0.32 - 4.0 uIU/mL 1.73 Hepatitis B Surface Antigen Negative Negative Hepatitis B Core Antibody Nonreactive Nonreactive ~Hepatitis B Surface Antibody Nonreactive GRAYZONE Hepatitis C Antibody Nonreactive Nonreactive HIV AB/AG Nonreactive Nonreactive Alkaline Phosphatase 39 - 117 U/L 54 B Type Natriuretic Peptide <100 pg/mL 171 (H) C Reactive Protein < or = 0.50 mg/dL 0.27 Erythrocyte Sedimentation Rate 0 - 20 MM/HR 23 (H) ESTIMATED AVERAGE GLUCOSE mg/dL 111 Estimated Glomerular Filt Rate >60 Hepatitis A IgM Nonreactive Nonreactive Mean Platelet Volume 9.4 - 12.3 fL 10.9 NRBC Abs Auto 0.0 - 0.012 X10*3/uL 0.000 NRBC Pct Auto 0.0 - 0.2 /100WBC 0.0 Syphilis Screen Nonreactive Nonreactive White Blood Count 4.8 - 10.8 X10*3/uL 6.7 EBV Viral Capsid Antigen (VCA) Antibody IgG U/mL <18.00 Comment: U/mL Interpretation ---- <18.00 Negative 18.00-21.99 Equivocal >21.99Positive EBV Viral Capsid Antigen (VCA) Ab IgM U/mL <36.00 Comment: U/mL Interpretation ---- <36.00 Negative 36.00-43.99 Equivocal >43.99 Positive EBV Nuclear Antigen (EBNA) Antibody IgG U/mL 501.00 Abnormal Comment: U/mL Interpretation ---- <18.00 Negative 18.00-21.99 Equivocal >21.99 Positive Interpretation: SEE NOTE Comment: No definitive interpretation can be made. This specimen exhibits anunusual antibody profile.THIS TEST WAS PERFORMED AT:[facility] [address] [phone] SUTTON MD Interim Updates: Anxiety PHQ9 and GAD7 positive today, no SI/HI, would like to start medication for this Taking Sertraline 25mg intermittently, gets CHAND after taking it Also using Melatonin for sleep Dysuria, intermittent Often accompanied by nausea History at age 20 of being hospitalized in [facility] for 13 days with retained blood clots in L kidney. SOB normal PFTs 05/2022 without signs of asthma, breathing is mostly better not happening at night anymore, only with exertion Insomnia Still with anxiety Happening most nights, using Melatonin without much benefit pap- 04/2021 NIL and HPV neg prior history of LEEP H/o KUNAL 1/2 and LEEP, last pap 12/2017 was ASCUS and HPV negative abnormal vaginal bleeding in January 2021, went to ER told she had a UTI, took antibiotics and dysuriaresolved. Still with irregular heaviness of periods. History of ovarian cysts-- intermittent L>R pelvic cramping and pain, occurring right now, mild.Also with recurrent vaginal discharge and itching. Uses OTC yeast creams and douching products. Is OK using OCPs, not desiring of more children, has 13 yo daughter and 16yo son. complains of vulvar itching around the time of her menses. saw personal development coach 01/2022 for pelvic pain/ovarian cyst, told pelvic pain was constipation? and that ovarian cysts are fine to keep monitoring EXAMINATION: US PELVIS CLINICAL INFORMATION: Abnormal uterine bleeding IMPRESSION: Normal thickness endometrium. Enlarged left ovary and 4.3 x 4.3 x 3.3cm minimally complex left ovarian cyst new in the interval from June 2020. Health maintenance STI screening- UTD Pap- UTD Imms- due for Tetanus, COVID, Flu. Declines today, will consider for later in the season Patient Active Problem List Diagnosis Cervical intraepithelial neoplasia grade 2 Cyst of left ovary Depressive disorder Genital herpes simplex Insomnia Dysuria Migraine without aura History of appendectomy Anxiety Unwanted fertility Neck pain Acute pain of both shoulders Upper back pain Proteinuria Edema Acute nonintractable headache Elevated brain natriuretic peptide (BNP) level History reviewed. No pertinent surgical history. No family history on file. Social History Social History Narrative Lives with AMAB partner and children Works in restaurant Review of Systems Constitutional: Positive for fatigue. Negative for chills, diaphoresis and fever. Respiratory: Negative. Cardiovascular: Negative. Musculoskeletal: Positive for arthralgias and joint swelling. Skin: Negative. OBJECTIVE: Vitals: 10/01/24 1538 BP: 138/84 BP Location: Right arm Patient Position: Sitting BP Cuff Size: Adult Pulse: 75 Resp: 17 Temp: 97.9 ??F (36.6 ??C) TempSrc: Temporal SpO2: 99% Weight: 142 lb 3.2 oz (64.5 kg) Height: 5' (1.524 m) Physical Exam Vitals and nursing note reviewed. Constitutional: Appearance: Normal appearance. HENT: Head: Normocephalic and atraumatic. Cardiovascular: Rate and Rhythm: Normal rate and regular rhythm. Pulses: Normal pulses. Heart sounds: Normal heart sounds. Pulmonary: Effort: Pulmonary effort is normal. Breath sounds: Normal breath sounds. Musculoskeletal: Right lower leg: Edema present. Left lower leg: Edema present. Skin: General: Skin is warm and dry. Neurological: General: No focal deficit present. Mental Status: She is alert and oriented to person, place, and time. Psychiatric: Mood and Affect: Mood normal. Behavior: Behavior normal. ASSESSMENT/PLAN Problem List Items Addressed This Visit Proteinuria - Primary Current Assessment & Plan Obtained more labs at 10/01/24 visit, infectious labs (Hep A, Hep C, Hep B, RPR, HIV, EBV neg), FANI panel pending I am concerned that patient has lupus and that proteinuria and CHAND/neck pain are renal and neuropsychiatric manifestations, respectively. I called patient 10/03/24 and she reports that her neck pain and headache are so severe that she can barely move her head (aseptic meningitis?) Please consider LP and CT. Relevant Orders C-reactive Protein (Completed) FANI Screen,IFA, with Reflex to Titer and Pattern Urine Spot Protein (OB only) Culture, Urine, Routine (Completed) Basic Metabolic Panel (Completed) US RENAL BI Keke-Buck Virus Antibody Panel (Completed) Acute nonintractable headache Relevant Medications acetaminophen (Tylenol Extra Strength) 500 MG tablet diphenhydrAMINE (BENADryl) 25 MG tablet ondansetron (Zofran) 4 MG tablet ibuprofen 600 MG tablet Elevated brain natriuretic peptide (BNP) level Follow Up: 1 months or sooner prn Allergies Allergen Reactions Ceftriaxone Hives Clindamycin Hives [place] Flavor [Flavoring Agent (Non-Screening)] Current Outpatient Medications: acetaminophen (Tylenol Extra Strength) 500 MG tablet, Take 2 tablets (1,000 mg) by mouth every 6 (six) hours if needed for headaches., Disp: 120 tablet, Rfl: 0 cetirizine (ZyrTEC) 10 MG tablet, Take 10 mg by mouth in the morning., Disp: , Rfl: cholecalciferol (Vitamin D-3) 50 MCG (2000 UT) capsule, Take 1 capsule by mouth at bed time., Disp:, Rfl: diphenhydrAMINE (BENADryl) 25 MG tablet, Take 1 tablet (25 mg) by mouth if needed at bedtime for sleep., Disp: 30 tablet, Rfl: 0 EPINEPHrine (EpiPen 2-Liam) 0.3 MG/0.3ML injection syringe, Inject 0.3 mL into the shoulder, thigh, or buttocks., Disp: , Rfl: fluticasone (Flonase) 50 MCG/ACT nasal spray, Administer 2 sprays into each nostril in the morning., Disp: , Rfl: ibuprofen 600 MG tablet, Take 1 tablet (600 mg) by mouth every 8 (eight) hours if needed for mild pain, moderate pain or headaches., Disp: 30 tablet, Rfl: 0 medroxyPROGESTERone (Depo-Provera) 150 MG/ML injection, Inject 1 mL (150 mg) into the shoulder, thigh, or buttocks every 3 (three) months., Disp: 1 mL, Rfl: 3 ondansetron (Zofran) 4 MG tablet, Take 1 tablet (4 mg) by mouth every 8 (eight) hours if needed fornausea or vomiting for up to 10 days., Disp: 30 tablet, Rfl: 0 sertraline (Zoloft) 25 MG tablet, Take 1 tablet (25 mg) by mouth at bedtime., Disp: 90 tablet, Rfl:3 triamcinolone (Kenalog) 0.1 % cream, Apply topically if needed in the morning and at bedtime (pain and swelling)., Disp: 30 g, Rfl: 2 Pakistani Translation: Provided by [facility] staff member JOSE Casanova documented in this encounter Miscellaneous Notes * Assessment & Plan Note - Aura Allen MD - 10/03/2024 9:31 AM EDTAssociated Problem(s): Proteinuria Obtained more labs at 10/01/24 visit, infectious labs (Hep A, Hep C, Hep B, RPR, HIV, EBV neg), FANI panel pending I am concerned that patient has lupus and that proteinuria and CHAND/neck pain are renal and neuropsychiatric manifestations, respectively. I called patient 3/21/25 and she reports that her neck pain and headache are so severe that she can barely move her head (aseptic meningitis?) Please consider LP and CT. documented in this encounter Plan of Treatment Upcoming Encounters Date Type Department Care Team (Late st Contact Info) Description 11/13/2024 1:00 PM EDT Clinical Support [facility] [address] [place] [phone] 12/01/2024 2:15 PM EDT Office Visit [facility] [address] [place] [phone] Aura Allen MD [address] [place] [address] 02/10/2025 10:00 AM EDT Office Visit [facility] [address] [place] [phone] Sol Morris Scheduled Orders Name Type Priority Associated Diagnoses Orde r Schedule Urine Spot Protein (OB only) Lab Routine Proteinuria, unspecified type Expected: 10/01/2024 (Approximate), Expires: 10/01/2025 US RENAL BI Imaging STAT Proteinuria, unspecified type Expected: 10/01/2024, Expires: 10/01/2025 documented as of this encounter Procedures Procedure Name Priority Date/Time Associated Diagnosis Comments KEKE BUCK VIRUS ANTIBODY PANEL Routine 10/01/2024 4:10 PM EDT Proteinuria, unspecified type CULTURE, URINE, ROUTINE Routine 10/01/2024 4:10 PM EDT Proteinuria, unspecified type C-REACTIVE PROTEIN Routine 10/01/2024 4: 10 PM EDT Proteinuria, unspecified type FANI SCREEN, IFA, W/REFL TITER AND PATTERN Routine 10/01/2024 4:10 PM EDT Proteinuria, unspecified type BASIC METABOLIC PANEL Routine 10/01/2024 4:10 PM EDT Proteinuria, unspecified type documented in this encounter Results * (ABNORMAL) Keke-Buck Virus Antibody Panel (10/01/2024 4:10 PM EDT) EBV Viral Capsid Antigen (VCA) Antibody IgG <18.00 U/mL [facility] Comment:U/mL Interpretation ---- <18.00 Negative 18.00-21.99 Equivocal >21.99 Positive EBV Viral Capsid Antigen (VCA) Ab IgM <36.00 U/mL [facility] Comment:U/mL Interpretation ---- <36.00 Negative 36.00-43.99 Equivocal >43.99 Positive EBV Nuclear Antigen (EBNA) Antibody IgG 501.00(A) U/mL [facility] Comment:U/mL Interpretation ---- <18.00 Negative 18.00-21.99 Equivocal >21.99 Positive Interpretation: SEE NOTE [facility] Comment:No definitive interp retation can be made. This specimen exhibits anunusual antibody profile.THIS TEST WAS PERFORMED AT:[facility] [place] [id number] PRINCE MD Blood Venous blood specimen / Unknown 10/01/2024 4:10 PM EDT 10/01/2024 6:21 PM EDT us Aura Allen MD LAB BLOOD ORDERABLES Final Res ult [facility] [address] [place], [place] [phone] * (ABNORMAL) Basic Metabolic Panel (10/01/2024 4:10 PM EDT) Pathologist [facility] Sodium 140 135 - 145 mmol/L [facility] Potassium 4.3 3.3 - 5.1 mmol/L [facility] Chloride 113(H) 96 - 108 mmol/L [facility] Carbon Dioxide 23 22 - 29 mmol/L [facility] Anion Gap 8(L) 12 - 20 [facility] Urea Nitrogen (BUN) 15 9 - 16 mg/dL [facility] Creatinine, Serum 0.77 0.5 - 1.4 mg/dL [facility] Estimated Glomerular Filt Rate >60 [facility] Comment:Chronic Kidney Disea se: Estimated GFR < 60 mL/min/1.50p6Juimkd Kidney Disease: Estimated GFR < 15 mL/min/1.73m2 Glucose 86 60 - 115 mg/dL [facility] Calcium 8.4 8.4 - 10.2 mg/dL [facility] Blood Venous blood specimen / Unknown 10/01/2024 4:10 PM EDT 10/01/2024 6:21 PM EDT Aura Allen MD LAB BLOOD ORDERABLES Final Res ult Performing Organization Address City/[facility]/ZIP Co de Phone Number [facility] [address] [place] [phone] * Culture, Urine, Routine (10/01/2024 4:10 PM EDT) Urine Urine specimen obtained by clean catch procedure / Unknown 10/01/2024 4:10 PM EDT 10/01/2024 6:00 PM EDT Comment:UACC Narrative [facility] - 10/02/2024 12:56 PM EDT Urine Culture No growth. Specimen Source: Urine clean catch Aura Allen MD LAB MICROBIOLOGY - GENERAL ORD ERABLES Final Result Performing Organization Address City/[facility]/ZIP Co de Phone Number [facility] [address] [place] [phone] * FANI Screen,IFA, with Reflex to Titer and Pattern (10/01/2024 4:10 PM EDT) Anti Nuclear Antibody Screen NEGATIVE NEGATIVE [facility] Comment:FANI IFA is a first l ine screen for detecting thepresence of up to approximately 150 autoantibodies invarious autoimmune diseases. A negative FANI IFA resultsuggests an FANI-associated autoimmune disease is notpresent at this time, but is not definitive. If thereis high clinical suspicion for Sjogren's syndrome,testing for anti-SS-A/Ro antibody should be considered.Anti-Linda-1 antibody should be considered for clinicallysuspected inflammatory myopathies.AC-0: NegativeInternational Consensus on FANI Patterns(https://doi.org/10.1515/ufeq-8894-4610)For additional information, please refer tohttp://education.[employer]/faq/CQQ385(This link is being provided for informational/educational purposes only.)THIS TEST WAS PERFORMED AT:[facility] [place] [phone] PRINCE MD F[facility]iter [facility] Pattern [facility] FANI TITER 2 (REF LAB) [facility] FANI Pattern 2 [facility] FANI TITER 3 [facility] FANI PATTERN 3 [facility] Blood Venous blood specimen / Unknown 10/01/2024 4:10 PM EDT 10/01/2024 6:21 PM EDT Aura Allen MD LAB BLOOD ORDERABLES Final Res ult Performing Organization Address [facility] Co de Phone Number [facility] [address] [place] [phone] * C-reactive Protein (10/01/2024 4:10 PM EDT) C Reactive Protein 0.12 < or = 0.50 mg/dL [facility] Blood Venous blood specimen / Unknown 10/01/2024 4:10 PM EDT 10/01/2024 6:21 PM EDT Aura Allen MD LAB BLOOD ORDERABLES Final Res ult Performing Organization Address [facility]/ZIP Co de Phone Number [facility] [address] [place] [phone] documented in this encounter Visit Diagnoses Diagnosis Proteinuria, unspecified type- Primary Acute non intractable tension-type headache Elevated brain natriuretic peptide (BNP) level documented in this encounter Additional Health Concerns Assessment Noted Time PHQ-9 Depression Total Score: 20 024 11:34 AM EDT documented as of this encounter Care Teams Habilitation Specialist Relationship Specialty Start Date End Date Aura Allen MD [address] [place] [phone] PCP - General Family Medicine 03/15/20 documented as of this encounter
--- OUTSIDE RECORDS SUMMARY | 2024-10-09 16:15 | XMS_ITS | Encounter Summary ---
Author Organization [employer] Address [address] [place] [address] 7 [place] [address] Care Team Providers Care Division Human Resources Manager Name Role Phone Aura Allen MD Primary Care Provider [phone] Reason for Referral * Consultation (Routine) - Authorized Specialty Diagnoses / Procedures Referred By Conttodd t Referred To Contact Obstetrics and Gynecology Diagnoses Unwanted fertility Aura Allen MD [address] [place] [phone] Phone: tel: fax: [address] Phone: tel: fax: Referral ID Status Reason Start Date Expiration Date Visits Requested Visits Authorized [id number] Authorized Specialty Services Required 09/05/2024 09/05/2025 1 1 Encounter Details Date Type Department Care Team (Late st Contact Info) Description 09/05/2024 Orders Only [facility] [address] [place] [address] [phone] Aura Allen MD [address] [place], [place] [phone] Unwanted fertility (Primary Dx) Social History Tobacco Use Types Packs/Day Years [...] Description 11/13/2024 1:00 PM EDT Clinical Support [facility] [address] [place] [phone] 12/01/2024 2:15 PM EDT Office Visit [facility] [address] [place] [phone] Aura Allen MD [address] [place] [phone] 02/10/2025 10:00 AM EDT Office Visit [facility] [address] [place] [phone] Sol Morris Scheduled Referrals Name Type Priority Associated Diagnoses Order Schedule Referral to Obstetrics / Gynecology Outpatient Referral Routine Unwanted fertility Expected: 09/05/2024 (Approximate), Expires: 09/05/2025 documented as of this encounter Visit Diagnoses Diagnosis Unwanted fertility- Primary documented in this encounter Additional Health Concerns Assessment Noted Time PHQ-9 Depression Total Score: 20 024 11:34 AM EDT documented as of this encounter Care Teams Division Human Resources Manager Relationship Specialty Start Date End Date Aura Allen MD [address] [place] [phone] PCP - General Family Medicine 03/15/20 documented as of this encounter
--- OUTSIDE RECORDS SUMMARY | 2024-10-09 16:15 | XMS_ITS | Encounter Summary ---
Author Organization [employer] Address [address] [place] [address] 7 [place] [address] Care Team Providers Care Social Studies Department Chair Name Role Phone Aura Allen MD Primary Care Provider [phone] Reason for Visit * Reason Onset Date Comments Results 10/02/2024 Encounter Details Date Type Department Care Team ([facility] st Contact Info) Description 10/02/2024 Telephone [facility] MEDICINE [address] [place], [place] [phone] Aura Allen MD [address] [place], [place] [phone] Results Social History Tobacco Use Types Packs/Day [...] encounter Miscellaneous Notes * Telephone Encounter - Sammie Gan RN - 10/02/2024 1:43 PM EDT TC returned to pt., informed pt. Bloodwork and urine specimen from yesterday 10/01/24 came back showing no UTI, and normal inflammation marker, kidney function and electrolytes. FANI panel and EBV teststill pending, pt. Will be contacted if any further results come back abnormal. Pt. Verbalizes under standing * Telephone Encounter - Sadia Solano - 10/02/2024 1:22 PM EDT TC from pt requesting call back regarding Results. Type of results: urination pain and labs Date when done: 10/01/24 Facility: [facility] documented in this encounter Plan of Treatment Upcoming Encounters Date Type Department Care Team (Late st Contact Info) Description 11/13/2024 1:00 PM EDT Clinical Support [facility] MEDICINE [address] [place] [address] 12/01/2024 2:15 PM EDT Office Visit [facility] [address] [place] [address] Aura Allen MD [address] [place] [address] 02/10/2025 10:00 AM EDT Office Visit [facility] ADULT DENTAL [address] [place] [address] Sol Morris documented as of this encounter Visit Diagnoses Not on filedocumented in this encounter Additional Health Concerns Assessment Noted Time PHQ-9 Depression Total Score: 20 024 11:34 AM EDT documented as of this encounter Care Teams Social Studies Department Chair Relationship Specialty Start Date End Date Aura Allen MD [address] [place] [address] PCP - General Family Medicine 03/15/20 documented as of this encounter
--- OUTSIDE RECORDS SUMMARY | 2024-10-09 16:15 | XMS_ITS | Encounter Summary ---
Author Organization [employer] Address [address] [place] [address] 7t [place] [address] Care Team Providers Care Creel Operator Name Role Phone Aura Allen MD Primary Care Provider [phone] Encounter Details Date Type Department Care Team (Late st Contact Info) Description 09/24/2024 Orders Only GENERIC EXTERNAL DATA DEPARTMENT Provider, Generic External Data Social History Tobacco Use Types Packs/Day Years [...] Description 11/13/2024 1:00 PM EDT Clinical Support [facility] MEDICINE [address] [place] [address] 12/01/2024 2:15 PM EDT Office Visit [facility] MED[facility]INE [address] [place], [place] [phone] Aura Allen MD [address] [place] [address] 02/10/2025 10:00 AM EDT Office Visit [facility] ADULT DENTAL [address] [place] [address] Sol Morris documented as of this encounter Procedures Procedure Name Priority Date/Time Associated Diagnosis Comments CBC WITH AUTO DIFFERENTIAL Routine 09/24/2024 9:53 PM EDT B TYPE NATRIURETIC PEPTIDE (BNP) Routine 09/24/2024 9:53 PM EDT BASIC METABOLIC PANEL Routine 09/24/2024 9:53 PM EDT documented in this encounter Results * (ABNORMAL) B Type Natriuretic Peptide (BNP) (09/24/2024 9:53 PM EDT) B Type Natriuretic Peptide 106(H) <100 pg/mL [facility] 09/24/2024 9:53 PM EDT 09/24/2024 9:56 PM EDT us Generic External Data Provider LAB BLOOD ORDERAB LES Final Result [facility] [address] [place] [phone] * (ABNORMAL) Basic Metabolic Panel (09/24/2024 9:53 PM EDT) Pathologist [facility] Sodium 139 135 - 145 mmol/L [facility] Potassium 3.6 3.3 - 5.1 mmol/L [facility] Chloride 114(H) 96 - 108 mmol/L [facility] Carbon Dioxide 19(L) 22 - 29 mmol/L [facility] Anion Gap 10(L) 12 - 20 [facility] Urea Nitrogen (BUN) 26(H) 9 - 16 mg/dL [facility] Creatinine, Serum 0.94 0.5 - 1.4 mg/dL [facility] Creatinine Clr Calc Pharmacy 67.7 [facility] Comment:Provided height and weight: 152.4 cm,62.596 kg.eGFR (calculated from the MDRD study equation) and eCrCl(calculated from the Cockcroft-Gault equation) are based ondifferent parameters and may not yield comparable results.If eCrCl result is absurd, please check patient'sheight/weight. Estimated Glomerular Filt Rate >60 [facility] Comment:Chronic Kidney Disea se: Estimated GFR < 60 mL/min/1.30x0Vfvpyi Kidney Disease: Estimated GFR < 15 mL/min/1.73m2 Glucose 99 60 - 115 mg/dL [facility] Calcium 9.0 8.4 - 10.2 mg/dL [facility] 09/24/2024 9:53 PM EDT 09/24/2024 9:56 PM EDT us Generic External Data Provider LAB BLOOD ORDERAB LES Final Result [facility] [address] [place] [phone] * (ABNORMAL) CBC auto differential (09/24/2024 9:53 PM EDT) White Blood Count 7.8 4.8 - 10.8 X10*3/uL [facility] Red Blood Count 3.82(L) 4.20 - 5.50 X10*6/uL [facility] Hemoglobin 11.5(L) 12.0 - 16.0 g/dl [facility] Hematocrit 31.5(L) 37.0 - 47.0 % [facility] Mean Corpuscular Volume 82.5 80.0 - 98.0 fL [facility] Mean Corpuscular Hemoglobin 30.1 27.0 - 33.0 pg [facility] Mean Corpuscular HGB Conc 36.5(H) 31.0 - 35.0 g/dl [facility] Red Cell Distribution Width 11.8 11.0 - 16.0 % [facility] Platelet Count 252 160 - 400 X10*3/uL [facility] Mean Platelet Volume 9.1(L) 9.4 - 12.3 fL [facility] Neutrophils Percent Auto 64.8 45 - 73 % [facility] Imm Gran Pct Auto 2.0(H) 0.0 - 0.4 % [facility] Lymphocytes Percent Auto 24.4 20 - 40 % [facility] Monocytes Percent Auto 7.0 2 - 11 % [facility] Eosinophils Percent Auto 1.4 0 - 4 % [facility] Basophils Percent Auto 0.4 0 - 2 % [facility] NRBC Pct Auto 0.0 0.0 - 0.2 /100WBC [facility] Neutrophils Absolute Auto 5.1 2.0 - 8.3 x10*3/uL [facility] Imm Gran Abs Auto 0.16(H) 0.00 - 0.03 X10*3/uL [facility] Lymphocytes Absolute Auto 1.9 1.2 - 4.9 X10*3/uL [facility] Monocytes Absolute Auto 0.6 0.1 - 1.2 X10*3/uL [facility] Eosinophils Absolute Auto 0.1 0.0 - 0.4 X10*3/uL [facility] Basophils Absolute Auto 0.0 0.0 - 0.2 X10*3/uL [facility] NRBC Abs Auto 0.000 0.0 - 0.012 X10*3/uL [facility] 09/24/2024 9:53 PM EDT 09/24/2024 9:56 PM EDT us Generic External Data Provider LAB BLOOD ORDERAB LES Final Result [facility] [address] [place] [phone] documented in this encounter Visit Diagnoses Not on filedocumented in this encounter Additional Health Concerns Assessment Noted Time PHQ-9 Depression Total Score: 20 024 11:34 AM EDT documented as of this encounter Care Teams Creel Operator Relationship Specialty Start Date End Date Aura Allen MD [address] [place] [address] PCP - General Family Medicine 03/15/20 documented as of this encounter
--- OUTSIDE RECORDS SUMMARY | 2024-10-09 16:15 | XMS_ITS | Encounter Summary ---
Author Organization [employer] Address [address] [facility] 7t [place] [address] Care Team Providers Care Mechanical Pencils Assembler Name Role Phone Aura Allen MD Primary Care Provider [phone] Encounter Details Date Type Department Care Team (Latest Contact Info) Description 10/01/2024 Travel Social History Tobacco Use Types Packs/Day Years [...] Description 11/13/2024 1:00 PM EDT Clinical Support [facility] MEDICINE [address] [place] [address] 12/01/2024 2:15 PM EDT Office Visit [facility] [address] [place] [address] Aura Allen MD [address] [place] [address] 02/10/2025 10:00 AM EDT Office Visit [facility] ADULT DENTAL [address] [place] [address] Sol Morris documented as of this encounter Visit Diagnoses Not on filedocumented in this encounter Additional Health Concerns Assessment Noted Time PHQ-9 Depression Total Score: 20 024 11:34 AM EDT documented as of this encounter Care Teams Mechanical Pencils Assembler Relationship Specialty Start Date End Date Aura Allen MD [address] [place] [phone] PCP - General Family Medicine 03/15/20 documented as of this encounter
--- OUTSIDE RECORDS SUMMARY | 2024-10-09 16:15 | XMS_ITS | Encounter Summary ---
Author Organization [employer] Address [address] [facility] 7t [place] [address] Care Team Providers Care Lining Layer Name Role Phone Aura Allen MD Primary Care Provider Encounter Details Date Type Department Care Team (Late st Contact Info) Description 10/03/[address] [facility] [address] [place] [address] Anu Solorzano MD [address] [place], [place] [phone] Social History Tobacco Use Types Packs/Day Years [...] as of this encounter Miscellaneous Notes * Result Encounter Note - Anu Solorzano MD - 10/03/2024 2:25 PM EDT 24-hour urine showed 1100 mg protein and 1800 cc of urine. Her ANU's and other inflammatory markersare negative. I spoke with patient who was at [facility] ED waiting to be evaluated for severe headache and neck pain. I explained the test results and told her that I was going to refer her to access tech, she agreed with the plan of care. Will follow-up labs from ED visit, she will follow-up as scheduled and we will come next week for blood work. UPEP is added to the 24h urine test, spoke with Yani and I'll fax the add on test. documented in this encounter Plan of Treatment Upcoming Encounters Date Type Department Care Team (Late st Contact Info) Description 11/13/2024 1:00 PM EDT Clinical Support [facility] [address] [place] [address] 12/01/2024 2:15 PM EDT Office Visit [facility] [address] [place] [address] Aura Allen MD [address] [place] [address] 02/10/2025 10:00 AM EDT Office Visit [facility] ADULT DENTAL [address] [place] [address] Sol Morris documented as of this encounter Procedures Procedure Name Priority Date/Time Associated Diagnosis Comments CREATININE, 24 HR GROUP Routine 10/03/2024 11:00 AM EDT PROTEIN, TOTAL W/CREAT, 24 HOUR URINE Routine 10/03/2024 11:00 AM EDT documented in this encounter Results * (ABNORMAL) Protein, Total, 24-Hour Urine with Creatinine (10/03/2024 11:00 AM EDT) Protein, Total, 24 Hr Urine 1,163(H) <150 mg/Day [facility] Protein, Urine 62 mg/dL [facility] Creatinine, 24 Hour Urine 1.3 1.0 - 2.0 G/Day [facility] Creatinine, Urine 71.26 [facility] Urine Total Volume 24 Hour 1,875 mL [facility] 10/03/2024 11:0 0 AM EDT 10/03/2024 1:29 PM EDT [facility] - 10/03/2024 2:55 PM EDT [id number] Anu Solorzano MD LAB URINE ORDERABLES Fin al Result [facility] [address] [place] [phone] * CREATININE, 24 HR GROUP (10/03/2024 11:00 AM EDT) Creatinine, 24 Hour Urine 1.3 1.0 - 2.0 G/Day [facility] Creatinine, Urine 70.58 [facility] Urine Total Volume 24 Hour 1,875 mL [facility] 10/03/2024 11:0 0 AM EDT 10/03/2024 1:27 PM EDT [facility] - 10/03/2024 2:55 PM EDT [id number] Anu Solorzano MD LAB URINE ORDERABLES Fin al Result [facility] [address] [place] [phone] [phone] documented in this encounter Visit Diagnoses Not on filedocumented in this encounter Additional Health Concerns Assessment Noted Time PHQ-9 Depression Total Score: 20 024 11:34 AM EDT documented as of this encounter Care Teams Lining Layer Relationship Specialty Start Date End Date Aura Allen MD [address] [place] [address] PCP - General Family Medicine 03/15/20 documented as of this encounter
--- OUTSIDE RECORDS SUMMARY | 2024-10-09 16:15 | XMS_ITS | Encounter Summary ---
Author Organization [employer] Address [address] [place] [address] 7t [place] [address] Care Team Providers Care Product Controller Name Role Phone Aura Allen MD Primary Care Provider [phone] Reason for Referral * Imaging (Urgent) - Authorized Specialty Diagnoses / Procedures Referred By Contac t Referred To Contact Cardiology Diagnoses Elevated brain natriuretic peptide (BNP) level Shortness of breath Procedures Transthoracic Echo (TTE) Complete Aura Allen MD [address] [place] [address] Phone: tel: fax: [address] Phone: tel: fax: Referral ID Status Reason Start Date Expiration Date Visits Requested Visits Authorized [id number] Authorized Perform Procedure 09/30/2024 09/30/2025 1 1 Encounter Details Date Type Department Care Team (Late st Contact Info) Description 09/30/2024 Orders Only [facility] [address] [place], [place] [phone] Aura Allen MD [address] [place] [address] Elevated brain natriuretic peptide (BNP) level (Primary Dx); Shortness of breath Social History Tobacco Use Types Packs/Day Years [...] Description 11/13/2024 1:00 PM EDT Clinical Support [facility] [address] [place] [address] 12/01/2024 2:15 PM EDT Office Visit [facility] [address] [place] [address] Aura Allen MD [address] [place] [address] 02/10/2025 10:00 AM EDT Office Visit [facility] ADULT DENTAL [address] [place] [address] Sol Morris Scheduled Orders Name Type Priority Associated Diagnoses Orde r Schedule Transthoracic Echo (TTE) Complete Echocardiography Urgent Elevated brain natriuretic peptide (BNP) level Shortness of breath Expected: 09/30/2024 (Approximate), Expires: 09/30/2026 documented as of this encounter Visit Diagnoses Diagnosis Elevated brain natriuretic peptide (BNP) level- Primary Shortness of breath documented in this encounter Additional Health Concerns Assessment Noted Time PHQ-9 Depression Total Score: 20 024 11:34 AM EDT documented as of this encounter Care Teams Product Controller Relationship Specialty Start Date End Date Aura Allen MD [address] [place] [address] PCP - General Family Medicine 03/15/20 documented as of this encounter
--- OUTSIDE RECORDS SUMMARY | 2024-10-09 16:15 | XMS_ITS | Clinical Summary ---
Author Organization [employer] Address [address] [place] [address] [address] [place] [address] Care Team Providers Care Club Director Name Role Phone Aura Allen MD Primary Care Provider [phone] Allergies Active Allergy Reactions Criticality Noted Date Comments Ceftriaxone Hives 06/27/2013 Clindamycin Hives 06/27/2013 Flavoring Agent (Non-Screening) 12/15 Medications cetirizine (ZyrTEC) 10 MG tablet Take 10 mg by mouth in the morning. 01/05/20 22 Active cholecalcifero l (Vitamin D-3) 50 MCG (1999 UT) capsule Take 1 capsule by mouth at bed time. 06/15/20 21 Active EPINEPHrine (EpiPen 2-Liam) 0.3 MG/0.3ML injection syringe Inject 0.3 mL into the shoulder, thigh, or buttocks. 05/08/20 19 Active fluticasone (Flonase) 50 MCG/ACT nasal spray Administer 2 sprays into each nostril in the morning. 01/05/20 22 Active medroxyPROGEST ERone (Depo-Provera) 150 MG/ML injectionIndic ations:Contrac eptive education Inject 1 mL (150 mg) into the shoulder, thigh, or buttocks every 3 (three) months. 1 mL 3 09/26/19 24 Active sertraline (Zoloft) 25 MG tablet Take 1 tablet (25 mg) by mouth at bedtime. 90 tablet 3 11/19/19 24 025 Active triamcinolone (Kenalog) 0.1 % creamIndicatio ns:Flexural eczema Apply topically if needed in the morning and at bedtime (pain and swelling). 30 g 2 05/05/20 24 Active acetaminophen (Tylenol Extra Strength) 500 MG tabletIndicati ons:Acute non intractable tension-type headache Take 2 tablets (1,000 mg) by mouth every 6 (six) hours if needed for headaches. 120 tablet 10/02/19 25 025 Active diphenhydrAMIN E (BENADryl) 25 MG tabletIndicati ons:Acute non intractable tension-type headache Take 1 tablet (25 mg) by mouth if needed at bedtime for sleep. 30 tablet 10/02/19 25 025 Active ondansetron (Zofran) 4 MG tabletIndicati ons:Acute non intractable tension-type headache Take 1 tablet (4 mg) by mouth every 8 (eight) hours if needed for nausea or vomiting for up to 10 days. 30 tablet 10/02/19 25 025 Active ibuprofen 600 MG tabletIndicati ons:Acute non intractable tension-type headache Take 1 tablet (600 mg) by mouth every 8 (eight) hours if needed for mild pain, moderate pain or headaches. 30 tablet 10/02/19 25 025 Active melatonin 5 MG tablet TAKE 1 OR 2 TABLETS BY MOUTH 15 MINUTES BEFORE BEDTIME 08/01/19 23 025 Discontinued(In effective) ibuprofen 600 MG tabletIndicati ons:Low back pain at multiple sites Take 1 tablet (600 mg) by mouth every 8 (eight) hours if needed for mild pain. 90 tablet 3 05/05/20 24 025 Discontinued(Th erapy completed) cyclobenzaprin e (Flexeril) 10 MG tabletIndicati ons:Neck pain,Acute pain of both shoulders,Uppe r back pain Take 1 tablet (10 mg) by mouth 3 times daily for 10 days. 30 tablet 07/03/20 24 025 Discontinued(Th erapy completed) acetaminophen (Tylenol Extra Strength) 500 MG tablet Take 1 tablet (500 mg) by mouth every 6 (six) hours if needed for mild pain. 120 tablet 09/30/19 25 025 Discontinued(Re order (will not trigger notification to Pharmacy)) ibuprofen 400 MG tablet Take 1 tablet (400 mg) by mouth every 8 (eight) hours if needed for mild pain or moderate pain. 15 tablet 09/30/19 025 Discontinued(Re order (will not trigger notification to Pharmacy)) Active Problems Problem Noted Date Diagnosed Date Elevated brain natriuretic peptide (BNP) level 0 10/03/2024 Proteinuria 09/29/2024 Assessment & Plan (10/03/2024 9:33 AM EDT): Obtained more labs at 10/01/24 visit, infectious [...] (aseptic meningitis?) Please consider LP and CT. Assessment & Plan (09/29/2024 2:30 PM EDT): 3+ on urine dip. Order 24-hour urine protein to rule out nephrotic syndrome Follow-up with PCP in 2 days. Edema 09/29/2024 Assessment & Plan (09/29/2024 2:30 PM EDT): Rule out nephrotic syndrome versus autoimmune disorder. Ordered labs including 24-hour protein and will follow-up with PCP or earlier as needed. Follow-up urine microscopic. Advised regarding lower salt consumption, avoid ibuprofen and take Tylenol as needed headache. Acute nonintractable headache 09/29/2024 Assessment & Plan (09/29/2024 2:32 PM EDT): Most likely from inflammatory disorder, rule out inflammatory or rheumatological disease Take Tylenol as needed for pain, go to ED if symptoms do not improve significantly. Avoid NSAIDs due to potential nephrotic syndrome Neck pain 07/03/2024 Assessment & Plan (07/03/2024 5:10 PM EST): C/w PT Apply heat on affected area RTC if further concerns Acute pain of both shoulders 07/03/2024 Upper back pain 07/03/2024 Anxiety 11/19/2023 Assessment & Plan (11/19/2023 12:44 PM EDT): Trial Sertraline 25mg for anxiety and depression Take daily at the same time Discussed potential side effects/risks Unwanted fertility 11/19/2023 Assessment & Plan (11/19/2023 1:16 PM EDT): Will refer to [facility] for B[facility] due to HSN insurance History of appendectomy 07/25/2023 Migraine without aura 05/23/2023 Assessment & Plan (05/23/2023 10:10 AM EST): Hydrate, exercise, eat frequent small snacks Ibuprofen as first life abortive therapy Sumatriptan for severe CHAND ER precautions for visual changes, worst headache of her life Dysuria 11/09/2022 Assessment & Plan (05/23/2023 10:12 AM EST): Consistent with patients prior UTI She did a home urine dip and it was positive (for nitrites presumably) Urine culture sent No signs/sx of pyelo, vitals normal Macrobid presumptively, will adjust antibiotics as needed Assessment & Plan (11/09/2022 10:26 AM EDT): Nitrite positive Urine culture sent Bactrim BID x 5 days given history of pyelo? CBC and BMP sent Cyst of left ovary 08/23/2021 Genital herpes simplex 07/02/2014 Insomnia 07/02/2014 Assessment & Plan (11/10/2022 8:44 AM EDT): Continue sleep hygiene Addressing root cause of anxiety Cervical intraepithelial neoplasia grade 2 11/16 Depressive disorder 07/16/1957 Encounters Date Type Department Care Team Description 10/07/2024 Telephone [facility] MEDICINE [address] [place] [address] Aura Allen MD Results 10/03/2024 Orders Only [facility] MEDICINE [address] [place], [place] [phone] Fani Solorzano MD Localized edema (Primary Dx); Proteinuria, unspecified type 10/03/2024 Orders Only [facility] MEDICINE [address] [facility] [place] [phone] Fani Solorzano MD 10/02/[address] [address] Aura Allen MD Results 10/01/2024 3:30 PM EDT Office Visit [address] [address] Aura Allen MD Proteinuria, unspecified type (Primary Dx); Acute non intractable tension-type headache; Elevated brain natriuretic peptide (BNP) level 10/01/2024 Travel 09/30/2024 Orders Only [address] [address] Aura Allen MD Elevated brain natriuretic peptide (BNP) level (Primary Dx); Shortness of breath 09/29/2024 2:40 PM EDT Office Visit [facility] WALK-IN CENTER [address] [place] [phone] Fani Solorzano MD Edema, unspecified type (Primary Dx); Isolated proteinuria without specific morphologic lesion; Acute nonintractable headache, unspecified headache type 09/29/2024 Orders Only [address] [address] Fani Solorzano MD 09/26/[address] [address] Aura Allen MD Nurse Triage 09/24/2024 Orders Only GENERIC EXTERNAL DATA DEPARTMENT Provider, Generic External Data 09/05/2024 Orders Only [facility] [address] [place] [phone] Aura Allen MD Unwanted fertility (Primary Dx) 09/05/[address] [address] Aura Allen MD recall 08/26/2024 1:00 PM EST Clinical Support [address] [address] Magaly Patino RN Contraceptive education 08/26/2024 Telephone [facility] [address] [place] [phone] Aura Allen MD 08/26/2024 Travel 08/05/2024 3:00 PM EST Office Visit [facility] [address] [facility] [place] [address] Karen Christensen DDS Dental caries (Primary Dx) 07/29/2024 11:00 AM EST Office Visit [facility] AD[facility] D[facility]AL [address] [facility] [place] [address] Sol Morris Dental plaque (Primary Dx); Dental calculus; Encounter for dental examination; Dental caries from Last 3 Months Immunizations Name Administration Dates Next Due Hep B, adult 03/27/2012,01/12/2011,07/28/2010 Influenza injectable quadriv alent IIV4 with preservative 04/17/2018 Influenza, Split (incl. radha fied surface antigen) 08/05/2013,03/27/2012 Pfizer Covid-19 Vaccine 12+ 01/04/2021 Tdap 07/28/2010 Social History Tobacco Use Types Packs/Day Years [...] not to disclose 2021 10:21 AM EDT Last Filed Vital Signs Vital Sign Reading [...] Mass Index 27.77 10/01/2024 3:38 PM EDT Plan of Treatment Upcoming Encounters Date Type Department Care Team (Late st Contact Info) Description 11/13/2024 1:00 PM EDT Clinical Support [facility] MEDICINE [address] [place] [phone] 12/01/2024 2:15 PM EDT Office Visit [facility] MEDICINE [address] [place] [phone] Aura Allen MD [address] [place] [phone] 02/10/2025 10:00 AM EDT Office Visit [facility] ADULT DENTAL [address] [place] [phone] oSl Morris Health Maintenance Due Date Last Done Comments Dental X-Ray: Bitewings 1987 Alcohol/Substance Use Screening 1999 DTaP/Tdap/Td Vaccines (2 - Td or Tdap) 07/28/2020 07/28/2010 Dental X-Ray: Full Mouth 11/14/2020 11/13/2017 COVID-19 Vaccine ( season) 2024 01/04/2021, 12/14/2020 Influenza Vaccine (#1) 2024 8, 08/05/2013, 03/27/2012 Pap Smear 04/01/2024 04/01/2021 Depression Monitoring (PHQ-9) 05/21/2024 11/19/2023, 11/19/2023 SDOH Screening 11/11/2024 11/12/2023 Depression Screening 11/18/2024 11/19/2023, 11/19/19 Dental Oral Exam 01/27/2025 07/29/2024, , 05/08/2019, Additional history exists Dental Prophylaxis 01/27/2025 07/29/2024, 0 12/11/2023, 05/08/2019, Additional history exists Family Planning (PISQ) 03/11/2025 03/11/2024 Tobacco Screening 10/01/2025 10/01/2024 Cervical Cancer Screening 04/01/2026 HPV/Cotest 04/01/2026 04/01/2021, 01/07/2018 Zoster Vaccines (1 of 2) 2037 RSV Patients and Patients Aged 60 years or older (1 - 1-dose 75+ series) 2062 Hepatitis B Vaccines Completed 03/27/2012, 01/12/2011, 07/28/2010 HIV Screening Completed 09/29/2024, 11/19/2023 Hepatitis C Screening Completed 09/29/2024, 024 HIB Vaccines Aged Out No longer eligi ble based on patient's age to complete this topic HPV Vaccines Aged Out No longer eligi ble based on patient's age to complete this topic Hepatitis A Vaccines Aged Out No long er eligible based on patient's age to complete this topic IPV Vaccines Aged Out No longer eligi ble based on patient's age to complete this topic Meningococcal Vaccine Aged Out No lenny hany eligible based on patient's age to complete this topic Pneumococcal Vaccine: Pediatrics (0 to 5 Years) and At-Risk Patients (6 to 49) Years) Aged Out No longer eligible based on patient's age to complete this topic RSV under 20 months Aged Out No longe r eligible based on patient's age to complete this topic Rotavirus Vaccines Aged Out No longer eligible based on patient's age to complete this topic Procedures Procedure Name Priority Date/Time Associated Diagnosis Comments PROTEIN ELECTROPHORESIS, 24-HOUR URINE (UPEP) Routine 10/03/2024 11:00 AM EDT Localized edema PROTEIN, TOTAL W/CREAT, 24 HOUR URINE Routine 10/03/2024 11:00 AM EDT CREATININE, 24 HR GROUP Routine 10/03/2024 11:00 AM EDT ALEJANDRO BUCK VIRUS ANTIBODY PANEL Routine 10/01/2024 4:10 PM EDT Proteinuria, unspecified type BASIC METABOLIC PANEL Routine 10/01/2024 4:10 PM EDT Proteinuria, unspecified type FANI SCREEN, IFA, W/REFL TITER AND PATTERN Routine 10/01/2024 4:10 PM EDT Proteinuria, unspecified type C-REACTIVE PROTEIN Routine 10/01/2024 4: 10 PM EDT Proteinuria, unspecified type CULTURE, URINE, ROUTINE Routine 10/01/2024 4:10 PM EDT Proteinuria, unspecified type URINALYSIS, COMPLETE, WITH REFLEX TO CULTURE Routine 09/29/2024 3:30 PM EDT FANI SCREEN, IFA, W/REFL TITER AND PATTERN Routine 09/29/2024 2:37 PM EDT LIPID PANEL WITH REFLEX TO DIRECT LDL Routine 09/29/2024 2:37 PM EDT Isolated proteinuria without specific morphologic lesion Edema, unspecified type B TYPE NATRIURETIC PEPTIDE (BNP) Routine 09/29/2024 2:37 PM EDT Isolated proteinuria without specific morphologic lesion SED RATE BY MODIFIED WESTERGREN Routine 09/29/2024 2:37 PM EDT Isolated proteinuria without specific morphologic lesion C-REACTIVE PROTEIN Routine 09/29/2024 2: 37 PM EDT Isolated proteinuria without specific morphologic lesion HEMOGLOBIN A1C Routine 09/29/2024 2:37 PM EDT Acute nonintractable headache, unspecified headache type HEPATITIS PANEL, GENERAL Routine 09/29/2024 2:37 PM EDT Isolated proteinuria without specific morphologic lesion HIV 1/2 ANTIGEN/ANTIBODY, FOURTH GENERATION W/RFL Routine 09/29/2024 2:37 PM EDT Isolated proteinuria without specific morphologic lesion Acute nonintractable headache, unspecified headache type SYPHILIS SCREEN Routine 09/29/2024 2:37 PM EDT Isolated proteinuria without specific morphologic lesion Acute nonintractable headache, unspecified headache type TSH W/REFLEX TO FT4 Routine 09/29/2024 2:37 PM EDT Edema, unspecified type COMPREHENSIVE METABOLIC PANEL Routine 09/29/2024 2:37 PM EDT Isolated proteinuria without specific morphologic lesion Edema, unspecified type CBC WITH AUTO DIFFERENTIAL Routine 09/29/2024 2:37 PM EDT Acute nonintractable headache, unspecified headache type POCT URINALYSIS DIPSTICK Routine 09/29/2024 2:29 PM EDT Edema, unspecified type B TYPE NATRIURETIC PEPTIDE (BNP) Routine 09/24/2024 9:53 PM EDT BASIC METABOLIC PANEL Routine 09/24/2024 9:53 PM EDT CBC WITH AUTO DIFFERENTIAL Routine 09/24/2024 9:53 PM EDT POCT , URINE Routine 08/26/2024 1:00 PM EST Contraceptive education CASE PRESENTATION, DETAILED AND EXTENSIVE TREATMENT PLANNING Routine 08/05/2024 3:00 PM EST Dental caries 29 MO RESIN-BASED COMPOSITE - 2 SURF, POSTERIOR Routine 08/05/2024 3:00 PM EST Dental caries COMPREHENSIVE PERIODONTAL EVALUATION - NEW OR ESTABLISHED PATIENT Routine 07/29/2024 11:00 AM EST Dental plaque Dental calculus Encounter for dental examination Dental caries PERIODIC ORAL EVALUATION - ESTABLISHED PATIENT Routine 07/29/2024 11:00 AM EST Dental plaque Dental calculus Encounter for dental examination Dental caries PROPHYLAXIS - ADULT Routine 07/29/2024 1 1:00 AM EST Dental plaque Dental calculus CASE PRESENTATION, DETAILED AND EXTENSIVE TREATMENT PLANNING Routine 07/29/2024 11:00 AM EST ORAL HYGIENE INSTRUCTIONS Routine 07/29/2024 11:00 AM EST Dental plaque Dental calculus HPV MRNA E6/E7 REFLEX TO HPV 16, 18/45 Routine 04/01/2021 9:24 AM EDT THINPREP IMAGING SYSTEM PAP Routine 04/01/2021 9:24 AM EDT PANORAMIC RADIOGRAPHIC IMAGE Routine 11/13/2017 12:00 AM EDT from Last 3 Months or Most Recently Relevant to Health Maintenance Results * CREATININE, 24 HR GROUP (10/03/2024 11:00 AM EDT) Creatinine, 24 Hour Urine 1.3 1.0 - 2.0 G/Day [facility] Creatinine, Urine 70.58 [facility] Urine Total Volume 24 Hour 1,875 mL [facility] 10/03/2024 11:0 0 AM EDT 10/03/2024 1:27 PM EDT Narrative [facility] - 10/03/2024 2:55 PM EDT [id number] us Fani Solorzano MD LAB URINE ORDERABLES Fin al Result [facility] [address] [place] [phone] * (ABNORMAL) Protein, Total, 24-Hour Urine with Creatinine (10/03/2024 11:00 AM EDT) Protein, Total, 24 Hr Urine 1,163(H) <150 mg/Day [facility] Protein, Urine 62 mg/dL [facility] Creatinine, 24 Hour Urine 1.3 1.0 - 2.0 G/Day [facility] Creatinine, Urine 71.26 [facility] Urine Total Volume 24 Hour 1,875 mL [facility] 10/03/2024 11:0 0 AM EDT 10/03/2024 1:29 PM EDT Narrative [facility] - 10/03/2024 2:55 PM EDT [id number] us Fani Solorzano MD LAB URINE ORDERABLES Fin al Result [facility] [address] [place] [phone] * (ABNORMAL) Protein Electrophoresis, 24-Hour Urine (UPEP) (10/03/2024 11:00 AM EDT) Creatinine, 24 Hour Urine 1.29 0.50 - 2.15 g/24 h [facility] Protein/Creatinine Ratio 913(A) <150 mg/g creat [facility] Protein, Total, 24 Hr Urine 1181(A) <150 mg/24 h [facility] Albumin 79 % [facility] Gydzd-7-Ewstrocbx 4 % [facility] Xfmaf-6-Stcbgqjdp 4 % [facility] Beta Globulins 9 % [facility] Gamma Globulins 5 % [facility] Abnormal Protein Band 1 [facility] Abnormal Protein Band 2 [facility] Abnormal Protein Band 3 [facility] Interpretation [facility] Comment:Selective proteinuri a. No monoclonal proteins detected.The supplier of the testing reagents for this assay haschanged. Detection of small monoclonal proteins mayvary by test system. Urine immunofixation is suggestedif clinically indicated and not already ordered.THIS TEST WAS PERFORMED AT:[employer] [address] [id number] PRINCE MD Protein/Creatinine Ratio 0.913(A) <0.150 [facility] Comment:Result Units: mg/mg creat 10/03/2024 11:0 0 AM EDT 10/03/2024 3:46 PM EDT Narrative [facility] - 10/07/2024 1:30 PM EDT [id number] Fani Solorzano MD LAB URINE ORDERABLES Fin al Result [facility] [address] [place] [phone] * (ABNORMAL) Alejandro-Buck Virus Antibody Panel (10/01/2024 4:10 PM EDT) EBV Viral Capsid Antigen (VCA) Antibody IgG <18.00 U/mL [facility] Comment:U/mL Interpretation ---- <18.00 Negative 18.00-21.99 Equivocal >21.99 Positive EBV Viral Capsid Antigen (VCA) Ab IgM <36.00 U/mL [facility] Comment:U/mL Interpretation ---- <36.00 Negative 36.00-43.99 Equivocal >43.99 Positive EBV Nuclear Antigen (EBNA) Antibody IgG 501.00(A) U/mL [facility] Comment:U/mL Interpretation ---- <18.00 Negative 18.00-21.99 Equivocal >21.99 Positive Interpretation: SEE NOTE [facility] Comment:No definitive interp retation can be made. This specimen exhibits anunusual antibody profile.THIS TEST WAS PERFORMED AT:[facility] [address] [id number] PRINCE MD Blood Venous blood specimen / Unknown 10/01/2024 4:10 PM EDT 10/01/2024 6:21 PM EDT Aura Allen MD LAB BLOOD ORDERABLES Final Res ult Performing Organization Address [facility] Co de Phone Number [facility] [address] [place] [phone] * Culture, Urine, Routine (10/01/2024 4:10 PM EDT) Urine Urine specimen obtained by clean catch procedure / Unknown 10/01/2024 4:10 PM EDT 10/01/2024 6:00 PM EDT Comment:UACC Narrative [facility] - 10/02/2024 12:56 PM EDT Urine Culture No growth. Specimen Source: Urine clean catch Aura Allen MD LAB MICROBIOLOGY - GENERAL ORD ERABLES Final Result Performing Organization Address [facility] de Phone Number [facility] [address] [place] [phone] * C-reactive Protein (10/01/2024 4:10 PM EDT) Only the most recent of2 resultswithin the time period is included. C Reactive Protein 0.12 < or = 0.50 mg/dL [facility] Blood Venous blood specimen / Unknown 10/01/2024 4:10 PM EDT 10/01/2024 6:21 PM EDT Aura Allen MD LAB BLOOD ORDERABLES Final Res ult Performing Organization Address [facility] [place] [facility] Co de Phone Number [facility] [address] [place] [phone] * FANI Screen,IFA, with Reflex to Titer and Pattern (10/01/2024 4:10 PM EDT) Only the most recent of2 resultswithin the time period is included. Anti Nuclear Antibody Screen NEGATIVE NEGATIVE [facility] Comment:FANI IFA is a first l [...] clinicallysuspected inflammatory myopathies.AC-0: NegativeInternational Consensus on FANI Patterns(https://doi.org/10.1515/lgtx-4537-9225)For additional information, please refer tohttp://education.[employer]/faq/ZNT683(This link is being provided for informational/educational purposes only.)THIS TEST WAS PERFORMED AT:[employer] [place] [id number] PRINCE MD FANI Titer TNP [facility] FANI Pattern [facility] FANI TITER 2 (REF LAB) [facility] FANI [facility] 2 [facility] TITER 3 [facility] FANI PATTERN 3 [facility] Blood Venous blood specimen / Unknown 10/01/2024 4:10 PM EDT 10/01/2024 6:21 PM EDT us Aura Allen MD LAB BLOOD ORDERABLES Final Res ult [facility] [address] [place] [phone] * (ABNORMAL) Basic Metabolic Panel (10/01/2024 4:10 PM EDT) Only the most recent of2 resultswithin the time period is included. Sodium 140 135 - 145 mmol/L [facility] Potassium 4.3 3.3 - 5.1 mmol/L [facility] Chloride 113(H) 96 - 108 mmol/L [facility] Carbon Dioxide 23 22 - 29 mmol/L [facility] Anion Gap 8(L) 12 - 20 [facility] Urea Nitrogen (BUN) 15 9 - 16 mg/dL [facility] Creatinine, Serum 0.77 0.5 - 1.4 mg/dL [facility] Estimated Glomerular Filt Rate >60 [facility] Comment:Chronic Kidney Disea se: Estimated GFR < 60 mL/min/1.29q0Wpnjdt Kidney Disease: Estimated GFR < 15 mL/min/1.73m2 Glucose 86 60 - 115 mg/dL [facility] Calcium 8.4 8.4 - 10.2 mg/dL [facility] Blood Venous blood specimen / Unknown 10/01/2024 4:10 PM EDT 10/01/2024 6:21 PM EDT us Aura Allen MD LAB BLOOD ORDERABLES Final Res ult [facility] [address] [place] [phone] * (ABNORMAL) Urinalysis, Complete, with Reflex to Culture (09/29/2024 3:30 PM EDT) Color Urine Yellow [facility] Appearance Urine Clear [facility] PH 6.0 5.0 - 9.0 [facility] Glucose Urine UA Negative Negative mg/dL [facility] Urine Blood Negative Negative [facility] Specific Ramona - Urine 1.015 1.005 - 1.025 [facility] Urine Protein 300 (3+)(A) Neg-Trace mg/dL [facility] Urine Ketones Negative Negative mg/dL [facility] Nitrite Urine Negative Negative [facility] Leukocyte Esterase Urine Negative Negative [facility] RBC Urine 0-2 0 - 2 /HPF [facility] Urine WBC 0-5 0 - 5 /HPF [facility] Urine Squamous Epithelial Cell 3-5 0 - 2 /HPF [facility] Urine Bacteria None Seen None Seen [facility] Hyaline Casts, Urine 3-5 0 - 2 /LPF [facility] 09/29/2024 3:30 PM EDT 09/29/2024 5:01 PM EDT Narrative [facility] - 09/29/2024 5:33 PM EDT Urine, Clean Catch us Fani Solorzano MD LAB URINE ORDERABLES Fin al Result [facility] [address] [place] [phone] * Syphilis Screen (09/29/2024 2:37 PM EDT) Syphilis Screen Nonreactive Nonreactive [facility] Blood 09/29/2024 2:37 PM EDT 09/29/2024 4:09 PM EDT us Fani Solorzano MD LAB BLOOD ORDERABLES Fin al Result Performing Organization Address [facility] Co de Phone Number [facility] [address] [place] [phone] * TSH with Reflex to Free T4 (09/29/2024 2:37 PM EDT) TSH reflex Free T4 1.73 0.32 - 4.0 uIU/mL [facility] Blood 09/29/2024 2:37 PM EDT 09/29/2024 4:09 PM EDT us Fani Solorzano MD LAB BLOOD ORDERABLES Fin al Result Performing Organization Address [facility] Co de Phone Number [facility] [address] [place] [phone] * (ABNORMAL) Lipid Panel with Reflex to Direct LDL (09/29/2024 2:37 PM EDT) Triglycerides 108 <150 mg/dL [facility] Comment:Desirable Triglyceri de: less than 150 mg/dLBorderline High Triglyceride 150-199 mg/dLHigh Triglyceride: 200-499 mg/dLVery High Triglyceride: greater than or equal to 5OO mg/dL Cholesterol 159 <200 mg/dL [facility] Comment:Desirable Cholestero l: less than 200 mg/dLBorderline High Cholesterol: 200-239 mg/dLHigh Cholesterol: greater than 239 mg/dL LDL Cholesterol Calculated 102(H) <100 mg/dL [facility] Comment:Desirable LDL: less than 100 mg/dLNear Optimal/Above Optimal LDL: 110- 129 mg/dLBorderline High LDL: 130-159 mg/dLHigh LDL: 160-189 mg/dLVery High LDL: greater than or equal to 190 mg/dL HDL Cholesterol 36(L) >40 mg/dL [facility] Comment:Desirable HDL: great er than 40 mg/dL Note: This HDL assay may give artificially low results in patients with liver disease. Blood 09/29/2024 2:37 PM EDT 09/29/2024 4:09 PM EDT us Fani Solorzano MD LAB BLOOD ORDERABLES Fin al Result [facility] [address] [place] [address] [phone] * Hepatitis Panel, General (09/29/2024 2:37 PM EDT) Hepatitis A IgM Nonreactive Nonreactive [facility] Comment:IgM antibodies to CHAND V not detected; does not exclude earlyacute or recovered HAV infection. ~Hepatitis B Surface Antibody GRAYZONE Nonreactive [facility] Comment:GRAYZONE: 8.00 mIU/m L TO 11.99 mIU/mLTHE IMMUNE STATUS OF THE INDIVIDUAL SHOULD BE FURTHERASSESSED BY CONSIDERING OTHER FACTORS, SUCH CLINICALSTATUS, FOLLOW-UP TESTING, ASSOCIATED RISK FACTORS, AND THEUSE OF ADDITIONAL DIAGNOSTIC INFORMATION. Hepatitis B Core Antibody Nonreactive Nonreactive [facility] Hepatitis C Antibody Nonreactive Nonreactive [facility] Comment:Antibodies to HCV no t detected; does not exclude early acuteHCV infection. Hepatitis B Surface Ag Negative Negative [facility] Blood 09/29/2024 2:37 PM EDT 09/29/2024 4:00 PM EDT us Fani Solorzano MD LAB BLOOD ORDERABLES Fin al Result [facility] [address] [place] [address] [phone] * (ABNORMAL) CBC auto differential (09/29/2024 2:37 PM EDT) Only the most recent of2 resultswithin the time period is included. White Blood Count 6.7 4.8 - 10.8 X10*3/uL [facility] Red Blood Count 4.05(L) 4.20 - 5.50 X10*6/uL [facility] Hemoglobin 11.8(L) 12.0 - 16.0 g/dl [facility] Hematocrit 34.7(L) 37.0 - 47.0 % [facility] Mean Corpuscular Volume 85.7 80.0 - 98.0 fL [facility] Mean Corpuscular Hemoglobin 29.1 27.0 - 33.0 pg [facility] Mean Corpuscular HGB Conc 34.0 31.0 - 35.0 g/dl [facility] Red Cell Distribution Width 12.2 11.0 - 16.0 % [facility] Platelet Count 208 160 - 400 X10*3/uL [facility] Mean Platelet Volume 10.9 9.4 - 12.3 fL [facility] Neutrophils Percent Auto 68.0 45 - 73 % [facility] Imm Gran Pct Auto 0.6(H) 0.0 - 0.4 % [facility] Lymphocytes Percent Auto 22.3 20 - 40 % [facility] Monocytes Percent Auto 6.9 2 - 11 % [facility] Eosinophils Percent Auto 1.6 0 - 4 % [facility] Basophils Percent Auto 0.6 0 - 2 % [facility] NRBC Pct Auto 0.0 0.0 - 0.2 /100WBC [facility] Neutrophils Absolute Auto 4.5 2.0 - 8.3 x10*3/uL [facility] Imm Gran Abs Auto 0.04(H) 0.00 - 0.03 X10*3/uL [facility] Lymphocytes Absolute Auto 1.5 1.2 - 4.9 X10*3/uL [facility] Monocytes Absolute Auto 0.5 0.1 - 1.2 X10*3/uL [facility] Eosinophils Absolute Auto 0.1 0.0 - 0.4 X10*3/uL [facility] Basophils Absolute Auto 0.0 0.0 - 0.2 X10*3/uL [facility] NRBC Abs Auto 0.000 0.0 - 0.012 X10*3/uL [facility] Blood Venous blood specimen / Unknown 09/29/2024 2:37 PM EDT 09/29/2024 4:18 PM EDT us Fani Solorzano MD LAB BLOOD ORDERABLES Fin al Result [facility] [address] [place] [address] [phone] * HIV-1/2 Antigen and Antibodies, Fourth Generation, with Reflexes (09/29/2024 2:37 PM EDT) HIV AB/AG Nonreactive Nonreactive [facility] Comment:HIV-1 p24 Ag and/or HIV-1/HIV-2 Ab not detected.A test result that is nonreactive does not exclude thepossibility of exposure to or infection with HIV-1 and/orHIV-2. Nonreactive results in this assay for individualswith prior exposure to HIV-1 and/or HIV-2 may be due toantigen and antibody levels that are below the limit ofdetection of this assay.The inContact HIV Ag/Ab Combo assay result andsupplemental assay results should be interpreted inconjunction with the patient's clinical presentation,history and other laboratory results. If the results areinconsistent with clinical evidence, additional testing issuggested to confirm the result. Blood Venous blood specimen / Unknown 09/29/2024 2:37 PM EDT 09/29/2024 4:00 PM EDT Fani Solorzano MD LAB BLOOD ORDERABLES Fin al Result Performing Organization Address [facility] de Phone Number [facility] [address] [place] [phone] * (ABNORMAL) Sed Rate by Modified Westergren (09/29/2024 2:37 PM EDT) Erythrocyte Sedimentation Rate 23(H) 0 - 20 MM/HR [facility] Comment:Patients with polycy themia and many hemoglobin abnormalitiesmay have depressed sed rates whereas patients with anemiamay have elevated sed rates. Blood Venous blood specimen / Unknown 09/29/2024 2:37 PM EDT 09/29/2024 4:18 PM EDT Fani Solorzano MD LAB BLOOD ORDERABLES Fin al Result Performing Organization Address [facility] de Phone Number [facility] [address] [place] [phone] * (ABNORMAL) B Type Natriuretic Peptide (BNP) (09/29/2024 2:37 PM EDT) Only the most recent of2 resultswithin the time period is included. B Type Natriuretic Peptide 171(H) <100 pg/mL [facility] Blood Venous blood specimen / Unknown 09/29/2024 2:37 PM EDT 09/29/2024 4:18 PM EDT Fani Solorzano MD LAB BLOOD ORDERABLES Fin al Result Performing Organization Address [facility] Co de Phone Number [facility] [address] [place] [address] [phone] * Hemoglobin A1c (09/29/2024 2:37 PM EDT) Hemoglobin A1c 5.5 <6.0 % [facility] Comment:Hemoglobin A1C Refer ence Range Adults: 4.8 - 6.0 % Non diabetic: < 6.0 % Goal: < 7.0 %Additional Action Suggested: > 8.0 %Note: Hemoglobin A1c results are invalid for patients with abnormal amounts of HbF. Blood transfusions may impact the HbA1c concentration in the patient sample. Estimated Average Glucose 111 mg/dL [facility] Comment:eAG = Estimated ave rage glucose which is %A1C expressed asaverage glucose, using the formula of the C0L-WkolxpdTjwzrmq Glucose study (ADAG), Diabetes Care, Vol.31,#8,Feb. 2007 Blood Venous blood specimen / Unknown 09/29/2024 2:37 PM EDT 09/29/2024 4:18 PM EDT us Fani Solorzano MD LAB BLOOD ORDERABLES Fin al Result [facility] [address] [place] [address] [phone] * (ABNORMAL) Comprehensive Metabolic Panel (09/29/2024 2:37 PM EDT) Pathologist [facility] Sodium 140 135 - 145 mmol/L [facility] Potassium 4.2 3.3 - 5.1 mmol/L [facility] Chloride 114(H) 96 - 108 mmol/L [facility] Carbon Dioxide 21(L) 22 - 29 mmol/L [facility] Anion Gap 9(L) 12 - 20 [facility] Urea Nitrogen (BUN) 18(H) 9 - 16 mg/dL [facility] Creatinine, Serum 0.92 0.5 - 1.4 mg/dL [facility] Estimated Glomerular Filt Rate >60 [facility] Comment:Chronic Kidney Disea se: Estimated GFR < 60 mL/min/1.89i5Qqglng Kidney Disease: Estimated GFR < 15 mL/min/1.73m2 Glucose 89 60 - 115 mg/dL [facility] Calcium 8.6 8.4 - 10.2 mg/dL [facility] Bilirubin, Total 0.4 0.0 - 1.0 mg/dL [facility] Aspartate Amino Transferase 39(H) 5 - 31 U/L [facility] Alanine Aminotransferase 68(H) 0 - 31 U/L [facility] Total Protein 6.7 6.5 - 8.0 g/dL [facility] Albumin Level 3.5 3.5 - 5.0 g/dL [facility] Alkaline Phosphatase 54 39 - 117 U/L [facility] Blood Venous blood specimen / Unknown 09/29/2024 2:37 PM EDT 09/29/2024 4:09 PM EDT Fani Solorzano MD LAB BLOOD ORDERABLES Fin al Result [facility] [address] [place] [phone] * (ABNORMAL) POCT urinalysis dipstick manually [...] UA OK Urine 09/29/2024 2:29 PM EDT Fani Solorzano MD POINT OF CARE TEST ENTER /EDIT ORDERABLES Final Result * POCT Urine (08/26/2024 1:00 PM EST) Preg Test, Ur Negative Negative, Indeterminate, None Detected, Invalid, Specimen unsatisfactory for evaluation, Weakly Positive Urine 08/26/2024 1:00 PM EST Aura Allen MD POINT OF CARE TEST ENTER/EDIT ORDERABLES Final Result * THINPREP TIS PAP (04/01/2021 9:24 AM EDT) Clinical Information: None given [facility] COMMENT SEE COMMENT [facility] Comment: EXPLANATORY NOTE: ? The Pap is a screening test for cervical cancer. It is ?? not a diagnostic test and is subject to false negative ?? and false positive results. It is most reliable when a ?? satisfactory sample, regularly obtained, is submitted ?? with relevant clinical findings and history, and when ?? the Pap result is evaluated along with historic and ?? current clinical information. ?? COMMENT: This Pap test has been evaluated with computer assisted technology. [facility] Cable Splicer : SEE COMMENT [facility] Comment: JNA, CT(ASCP) CT screening location: [address] ??[phone] Infection Shift in vaginal veronique suggestive of bacterial vaginosis. [facility] Interpretation/R esult: Negative for intraepithelial lesion or malignancy. [facility] LMP: NONE GIVEN [facility] Prev. BX: NONE [facility] Prev. PAP: NONE [facility]IV[facility] SOURCE: None given [facility] Statement Of Adequacy: [facility] Comment: Satisfactory for evaluation. Endocervical/transformation zone component absent. Age and/or menstrual status not provided 04/01/2021 9:24 AM EDT Aura Allen MD LAB PATHOLOGY ORDERABLES Final Result [facility] [address] * HPV mRNA E6/E7 REFLEX TO HPV 16, 18/45 (04/01/2021 9:24 AM EDT) HPV nRNA E6/E7 Not Detected Not Detected [facility] Comment: Methodology: Cold Storage Superintendent-Mediated Amplification This assay detects E6/E7 viral messenger RNA (mRNA) from 14 high-risk HPV types (16,18,31,33,35,39,45,51,52,56,58,59,66,68). ? The analytical performance characteristics of this assay have been determined by [employer]. The modifications have not been cleared or approved by the FDA. This assay has been validated pursuant to the CLIA regulations and is used for clinical purposes. ?? For additional information, please refer to http://education.ZarthCode/faq/QTQ587q4 (This link if provided for information/ educational purposes only.) 04/01/2021 9:24 AM EDT Aura Allen MD LAB CYTOLOGY ORDERABLES Final Result [facility] [address] from Last 3 Months or Most Recently Relevant to Health Maintenance Insurance HSN FULL DENTAL - HSN FULL (MEDICAID) [facility] AD[facility] Care Teams Club Director Relationship Specialty Start Date End Date Aura Allen MD [address] [place] [phone] PCP - General Family Medicine 03/15/20
--- OUTSIDE RECORDS SUMMARY | 2024-10-09 16:15 | XMS_ITS | Encounter Summary ---
Author Organization [employer] Address [address] [facility] 7[address] [place] [address] Care Team Providers Care Delivery Lead Name Role Phone Aura Allen MD Primary Care Provider [phone] Encounter Details Date Type Department Care Team (Late st Contact Info) Description 09/29/2024 Orders Only [facility] [address] [place] [address] Anu Solorzano MD [address], [place] [phone] Social History Tobacco Use Types Packs/Day Years [...] Note - Anu Solorzano MD - 09/29/2024 5:15 PM EDT ANAs are POS , low titers, she was sent to renal for further evaluation of nephropathy (heavy proteinuria) documented in this encounter Plan of Treatment Upcoming Encounters Date Type Department Care Team (Late st Contact Info) Description 11/13/2024 1:00 PM EDT Clinical Support [facility] [address] [place] [phone] 12/01/2024 2:15 PM EDT Office Visit [facility] [address] [place] [phone] Aura Allen MD [address] [place] [address] 02/10/2025 10:00 AM EDT Office Visit [facility] ADULT DENTAL [address] [place] [phone] Sol Morris documented as of this encounter Procedures Procedure Name Priority Date/Time Associated Diagnosis Comments URINALYSIS, COMPLETE, WITH REFLEX TO CULTURE Routine 09/29/2024 3:30 PM EDT ANU SCREEN, IFA, W/REFL TITER AND PATTERN Routine 09/29/2024 2:37 PM EDT documented in this encounter Results * (ABNORMAL) Urinalysis, Complete, with Reflex to Culture (09/29/2024 3:30 PM EDT) Color Urine Yellow [facility] Appearance Urine Clear [facility] PH 6.0 5.0 - 9.0 [facility] Glucose Urine UA Negative Negative mg/dL [facility] Urine Blood Negative Negative [facility] Specific [place] - Urine 1.015 1.005 - 1.025 [facility] Urine Protein 300 (3+)(A) Neg-Trace mg/dL [facility] Urine Ketones Negative Negative mg/dL [facility] Nitrite Urine Negative Negative [facility] Leukocyte Esterase Urine Negative Negative [facility] RBC Urine 0-2 0 - 2 /HPF [facility] Urine WBC 0-5 0 - 5 /HPF [facility] Urine Squamous Epithelial Cell 3-5 0 - 2 /HPF [facility] Urine Bacteria None Seen None Seen [facility] Hyaline Casts, Urine 3-5 0 - 2 /LPF [facility] 09/29/2024 3:30 PM EDT 09/29/2024 5:01 PM EDT Narrative [facility] - 09/29/2024 5:33 PM EDT Urine, Clean Catch us Anu Solorzano MD LAB URINE ORDERABLES Fin al Result [facility] [address] [place] [address] [phone] * (ABNORMAL) ANU Screen,IFA, with Reflex to Titer and Pattern (09/29/2024 2:37 PM EDT) Anti Nuclear Antibody Screen POSITIVE (A) NEGATIVE [facility] Comment:ANU IFA is a first l ine screen for detecting thepresence of up to approximately 150 autoantibodies invarious autoimmune diseases. A positive ANU IFA resultis suggestive of autoimmune disease and reflexes totiter and pattern. Further laboratory testing may beconsidered if clinically indicated.For additional information, please refer tohttp://education.MPSTOR/faq/AAM623(This link is being provided for informational/educational purposes only.) ANU Titer 1:40(A) titer [facility] Comment:A low level ANU tite r may be present in pre-clinicalautoimmune diseases and normal individuals. Reference Range <1:40 Negative 1:40-1:80 Low Antibody Level >1:80 Elevated Antibody Level ANU Pattern Nuclear, Speckled (A) [facility] Comment:Speckled pattern is associated with mixed connectivetissue disease (MCTD), systemic lupus erythematosus(SLE), Sjogren's syndrome, dermatomyositis, andsystemic sclerosis/polymyositis overlap.AC-2,4,5,29: SpeckledInternational Consensus on ANU Patterns(https://doi.org/10.1515/pazw-4234-5142) ANU TITER 2 (REF LAB) 1:40(A) titer [facility] Comment:A low level ANU tite r may be present in pre-clinicalautoimmune diseases and normal individuals. Reference Range <1:40 Negative 1:40-1:80 Low Antibody Level >1:80 Elevated Antibody Level ANU Pattern 2 (A) [facility] Comment:Cytoplasmic, Dense F ine Speckled Abnormal Flag: AThe pattern appears cloudy, almost homogeneousthroughout the cytoplasm (e.g., anti-PL-7, PL-12,ribosomal P proteins). Pattern is associated withanti-synthetase syndrome, polymyositis/dermatomyositis,systemic lupus erythematosus (SLE), juvenile SLE, andneuropsychiatric SLE.AC-19: Dense Fine SpeckledInternational Consensus on ANU Patterns(https://doi.org/10.1515/bkhc-3392-0093)THIS TEST WAS PERFORMED AT:[facility] [place] [phone] PRINCE MD ANU TITER 3 TNP [facility] ANU PATTERN 3 [facility] 09/29/2024 2:37 PM EDT 09/29/2024 4:00 PM EDT Anu Solorzano MD LAB BLOOD ORDERABLES Fin al Result [facility] [address] [place] [phone] [phone] documented in this encounter Visit Diagnoses Not on filedocumented in this encounter Additional Health Concerns Assessment Noted Time PHQ-9 Depression Total Score: 20 024 11:34 AM EDT documented as of this encounter Care Teams Delivery Lead Relationship Specialty Start Date End Date Aura Allen MD [address] [place] [phone] PCP - General Family Medicine 03/15/20 documented as of this encounter
--- OUTSIDE RECORDS SUMMARY | 2024-10-09 16:15 | XMS_ITS | Encounter Summary ---
Author Organization [employer] Address [address] [place] [address] 7t [place] [address] Care Team Providers Care Records Management Coordinator Name Role Phone Aura Allen MD Primary Care Provider [phone] Encounter Details Date Type Department Care Team (Late st Contact Info) Description 10/16/2022 Orders Only [facility] [address] [place] [address] Hattie Moya LPN Social History Tobacco Use Types Packs/Day Years [...] Description 11/13/2024 1:00 PM EDT Clinical Support [facility] [address] [place] [address] 12/01/2024 2:15 PM EDT Office Visit [facility] [address] [place] [phone] Aura Allen MD [address] [place] [address] 02/10/2025 10:00 AM EDT Office Visit [facility] ADULT DENTAL [address] [place] [phone] Sol Morris documented as of this encounter Visit Diagnoses Not on filedocumented in this encounter Care Teams Records Management Coordinator Relationship Specialty Start Date End Date Aura Allen MD [address] [place] [phone] PCP - General Family Medicine 03/15/20 documented as of this encounter
--- OUTSIDE RECORDS SUMMARY | 2024-10-09 16:15 | XMS_ITS | Encounter Summary ---
Author Organization [employer] Address [address] [place] [address] [address] [place] [address] Care Team Providers Care Field Support Rep Name Role Phone Aura Allen MD Primary Care Provider [phone] Reason for Visit * Reason Onset Date Comments Nurse Triage 09/26/2024 Encounter Details Date Type Department Care Team ([facility] st Contact Info) Description 09/26/2024 Telephone [facility] [address], [place] [phone] Aura Allen MD [address], [place] [phone] Nurse Triage Social History Tobacco Use Types Packs/Day Years [...] encounter Miscellaneous Notes * Telephone Encounter - Annika Vogel RN - 09/26/2024 11:50 AM EDT called pt to triage, spoke to pt. pt states seen in the ER at [facility] yesterday for swelling of hands and feet, and generalized joint pain getting worse. reviewed the ER notes, and nothing acute was found and no edema was appreciated. pt requesting appt and referral to specialist for joint pain. advised home care: rest, ice, heat, OTC pain reliever as needed, and call back if worsening or new concerns. given appt with PCP 10/01 at 3:30 for exam. notes from the ER are already scanned into the chart for review. pt understands and agrees with plan. insurance verified. Protocol Used: Muscle Aches and Body Pain (Adult) Protocol-Based Disposition: See in Office or Video Visit within 2 Weeks Video visit offer not recorded Positive Triage Question: * Muscle aches or body pains are a chronic symptom (recurrent or ongoing AND present > 4 weeks) * All higher-acuity triage questions were negative Care Advice Discussed: * Reassurance and Education - Mild Muscle Pain * Pain Medicines * Pain Medicines - Extra Notes and Warnings * Reasons To Call Back - Fever occurs - Pain lasts longer than 7 days - You become worse * Telephone Encounter - Abdon Mike - 09/26/2024 10:55 AM EDT Patient calling to report ED visit on : Date: 09/25/24 Hospital: [facility] ED Seen for: Swollen feet and hands / bone pain Symptomatic Yes *if yes message should go to Triage Pt states was not prescribed anything for the pain or swelling [place] speaking documented in this encounter Plan of Treatment Upcoming Encounters Date Type Department Care Team (Late st Contact Info) Description 11/13/2024 1:00 PM EDT Clinical Support [facility] [address] [place] [phone] 12/01/2024 2:15 PM EDT Office Visit [facility] [address] [place] [phone] Aura Allen MD [address] [place] [phone] 02/10/2025 10:00 AM EDT Office Visit [facility] [address] [place] [phone] Sol Morris documented as of this encounter Visit Diagnoses Not on filedocumented in this encounter Additional Health Concerns Assessment Noted Time PHQ-9 Depression Total Score: 20 024 11:34 AM EDT documented as of this encounter Care Teams Field Support Rep Relationship Specialty Start Date End Date Aura Allen MD [address] [place] [phone] PCP - General Family Medicine 03/15/20 documented as of this encounter
--- OUTSIDE RECORDS SUMMARY | 2024-10-09 16:15 | XMS_ITS | Encounter Summary ---
Author Organization [employer] Address [address] [facility] 7t [place] [address] Care Team Providers Care Photographic Laboratory Supervisor Name Role Phone Aura Allen MD Primary Care Provider [phone] Encounter Details Date Type Department Care Team ([facility] st Contact Info) Description 02/25/2024 Telephone [facility] CHC MED & PEDS [address] [place], [place] [phone] Aura Allen MD [address] [place] [address] Social History Tobacco Use Types Packs/Day Years [...] Description 11/13/2024 1:00 PM EDT Clinical Support [facility] MEDICINE [address] [place] [phone] 12/01/2024 2:15 PM EDT Office Visit [facility] MEDICINE [address] [place] [address] Aura Allen MD [address] [place] [address] 02/10/2025 10:00 AM EDT Office Visit [facility] ADULT DENTAL [address] [place] [address] Sol Morris documented as of this encounter Visit Diagnoses Not on filedocumented in this encounter Additional Health Concerns Assessment Noted Time PHQ-9 Depression Total Score: 20 024 11:34 AM EDT documented as of this encounter Care Teams Photographic Laboratory Supervisor Relationship Specialty Start Date End Date Aura Allen MD [address] [place] [phone] PCP - General Family Medicine 03/15/20 documented as of this encounter
--- OUTSIDE RECORDS SUMMARY | 2024-10-09 16:15 | XMS_ITS | Encounter Summary ---
Author Organization [employer] Address [address] [place] [address] 7t [place] [address] Care Team Providers Care Front Of House Manager Name Role Phone Aura Allen MD Primary Care Provider [phone] Reason for Referral * Consultation (Urgent) - Canceled Specialty Diagnoses / Procedures Referred By Lauryn barrera Referred To Contact Nephrology Diagnoses Proteinuria, unspecified type Anu Solorzano MD [address] [place] [address] Phone: tel: fax: Referral ID Status Reason Start Date Expiration Date Visits Requested Visits Authorized [id number] Canceled Specialty Services Required 10/03/2024 10/03/2025 1 1 Encounter Details Date Type Department Care Team (Late st Contact Info) Description 10/03/2024 Orders Only [facility] MEDICINE [address] [place], [place] [phone] Anu Solorzano MD [address] [place], [place] [phone] Localized edema (Primary Dx); Proteinuria, unspecified type Social History Tobacco Use Types Packs/Day [...] your housing situation today? I have bib sing 11/12/[address] you li [...] Description 11/13/2024 1:00 PM EDT Clinical Support [facility] MEDICINE [address] [place] [address] 12/01/2024 2:15 PM EDT Office Visit [facility] MEDICINE [address] [place] [address] Aura Allen MD [address] [place] [address] 02/10/2025 10:00 AM EDT Office Visit [facility] ADULT DENTAL [address] [place] [phone] Sol Morris Scheduled Orders Name Type Priority Associated Diagnoses Orde r Schedule Protein Electrophoresis, 24-Hour Urine (UPEP) Lab Routine Proteinuria, unspecified type Expected: 10/03/2024 (Approximate), Expires: 10/03/2025 Scheduled Referrals Name Type Priority Associated Diagnoses Orde r Schedule Referral to Nephrology Outpatient Referral Urgent Proteinuria, unspecified type Expected: 10/03/2024 (Approximate), Expires: 10/03/2025 documented as of this encounter Procedures Procedure Name Priority Date/Time Associated Diagnosis Comments PROTEIN ELECTROPHORESIS, 24-HOUR URINE (UPEP) Routine 10/03/2024 11:00 AM EDT Localized edema documented in this encounter Results * (ABNORMAL) Protein Electrophoresis, 24-Hour Urine (UPEP) (10/03/2024 11:00 AM EDT) Creatinine, 24 Hour Urine 1.29 0.50 - 2.15 g/24 h [facility] Protein/Creatinine Ratio 913(A) <150 mg/g creat [facility] Protein, Total, 24 Hr Urine 1181(A) <150 mg/24 h [facility] Albumin 79 % [facility] Rkfec-4-Olntbnnpb 4 % [facility] Gbzvq-5-Ynoryllkr 4 % [facility] Beta Globulins 9 % [facility] Gamma Globulins 5 % [facility] Abnormal Protein Band 1 [facility] Abnormal Protein Band 2 [facility] Abnormal Protein Band 3 [facility] Interpretation [facility] Comment:Selective proteinuri a. No monoclonal proteins detected.The supplier of the testing reagents for this assay haschanged. Detection of small monoclonal proteins mayvary by test system. Urine immunofixation is suggestedif clinically indicated and not already ordered.THIS TEST WAS PERFORMED AT:[facility] [place] [id number] PRINCE MD Protein/Creatinine Ratio 0.913(A) <0.150 [facility] Comment:Result Units: mg/mg creat 10/03/2024 11:0 0 AM EDT 10/03/2024 3:46 PM EDT Narrative [facility] - 10/07/2024 1:30 PM EDT [id number] Anu Solorzano MD LAB URINE ORDERABLES Fin al Result [facility] [address] [place] [phone] documented in this encounter Visit Diagnoses Diagnosis Localized edema- Primary Edema Proteinuria, unspecified type documented in this encounter Additional Health Concerns Assessment Noted Time PHQ-9 Depression Total Score: 20 024 11:34 AM EDT documented as of this encounter Care Teams Front Of House Manager Relationship Specialty Start Date End Date Aura Allen MD [address] [place] [address] PCP - General Family Medicine 03/15/20 documented as of this encounter
== END ==
LOC: HO.CARD 13:08
PROVIDERS: Visit Provider General Practice
DX: R06.02 Shortness of breath (principal); R79.89 Other specified abnormal findings of blood chemistry
CPT/HCPCS: 93306

== ENCOUNTER → 2024-10-09 13:15 | Outpatient (BNV) | payer SELFPAY | PROVIDERS: Visit Provider Internal Medicine Cardiovascular Disease | DX: R06.02 Shortness of breath (principal); R79.89 Other specified abnormal findings of blood chemistry | CPT/HCPCS: 93306 ==

== ENCOUNTER 2024-10-14 13:52 | Outpatient (REF) | payer MEDICAID, OTHER, SELFPAY ==
--- NOTE | ~2024-10-14 | US_ITS ---
EXAMINATION: US RETROPERITONEAL LIMITED (RENAL ONLY) CLINICAL INFORMATION: Proteinuria. COMPARISON: None available. Correlation made with CT abdomen and pelvis 11/30/2018. TECHNIQUE: Real-time imaging of the kidneys. FINDINGS: RIGHT KIDNEY: 11.1 x 5.2 x 4.7 cm (SAG x AP x TRV). The kidney is normal in size and contour. Duplicated collecting system. There is mildly diffusely increased cortical echogenicity. Renal cortical thickness is normal. No calculi or focal parenchymal lesions. No hydronephrosis. LEFT KIDNEY: 12.3 x 5.1 x 4.4 cm (SAG x AP x TRV). The kidney is normal in size and contour. Duplicated collecting system. There is mildly diffusely increased cortical echogenicity. Renal cortical thickness is normal. No calculi or focal parenchymal lesions. No hydronephrosis. US/US renal BI IMPRESSION: 1. Mildly increased bilateral renal cortical echogenicity, in keeping with intrinsic renal disease. No hydronephrosis mass, or cortical thinning. Electronically signed by: Shaggy Sherman MD 10/14/2024 02:24 PM EDT
--- OUTSIDE RECORDS SUMMARY | 2024-10-14 16:30 | XMS_ITS | Encounter Summary ---
Author Organization [employer] Address [address] [facility] [address] [place] [address] Care Team Providers Care Adjunct Physics Instructor Name Role Phone Aura Allen MD Primary Care Provider [phone] Encounter Details Date Type Department Care Team ([facility] st Contact Info) Description 02/25/2024 Telephone [facility] CHC MED & PEDS [address] [place], [place] [phone] Aura Allen MD [address] [place] [address] Social History Tobacco Use Types Packs/Day Years [...] Description 11/13/2024 1:00 PM EDT Clinical Support [facility] MEDICINE [address] [place] [address] 12/01/2024 2:15 PM EDT Office Visit [facility] MEDICINE [address] [place] [phone] Aura Allen MD [address] [place] [address] 02/10/2025 10:00 AM EDT Office Visit [facility] ADULT DENTAL [address] [place] [address] Sol Morris documented as of this encounter Visit Diagnoses Not on filedocumented in this encounter Additional Health Concerns Assessment Noted Time PHQ-9 Depression Total Score: 20 024 11:34 AM EDT documented as of this encounter Care Teams Adjunct Physics Instructor Relationship Specialty Start Date End Date Aura Allen MD [address] [place] [phone] PCP - General Family Medicine 03/15/20 documented as of this encounter
--- OUTSIDE RECORDS SUMMARY | 2024-10-14 16:30 | XMS_ITS | Encounter Summary ---
Author Organization [employer] Address [address] [place] [address] 7[address] [place] [address] Care Team Providers Care Boiler Setter Name Role Phone Aura Allen MD Primary Care Provider [phone] Encounter Details Date Type Department Care Team (Late st Contact Info) Description 10/16/2022 Orders Only [facility] CHC MED & PEDS [address] [place] [address] Hattie Moya LPN Social History Tobacco Use [...] 11/13/2024 1:00 PM EDT Clinical Support [facility] MEDICINE [address] [place] [phone] 12/01/2024 2:15 PM EDT Office Visit [facility] MEDICINE [address] [place] [address] Aura Allen MD [address] [place] [address] 02/10/2025 10:00 AM EDT Office Visit [facility] ADULT DENTAL [address] [place] [phone] Sol Morris documented as of this encounter Visit Diagnoses Not on filedocumented in this encounter Care Teams Boiler Setter Relationship Specialty Start Date End Date Aura Allen MD [address] [place] [address] PCP - General Family Medicine 03/15/20 documented as of this encounter
--- OUTSIDE RECORDS SUMMARY | 2024-10-14 16:30 | XMS_ITS | Encounter Summary ---
Author Organization [employer] Address [address] [place] [address] 7[address] [place] [address] Care Team Providers Care Decay Control Operator Name Role Phone Aura Allen MD Primary Care Provider [phone] Encounter Details Date Type Department Care Team ([facility] Contact Info) Description 11/13/2022 Orders Only [facility] MEDICINE [address] [place] [address] [phone] Aura Allen MD [address] [place] [phone] Social History Tobacco Use Types Packs/Day Years [...] Upcoming Encounters Date Type Department Care Team ([facility] Contact Info) Description 11/13/2024 1:00 PM EDT Clinical Support [facility] MEDICINE [address] [place] [phone] 12/01/2024 2:15 PM EDT Office Visit [facility] MEDICINE [address] [place] [address] [phone] Aura Allen MD [address] [place] [address] 02/10/2025 10:00 AM EDT Office Visit [facility] ADULT DENTAL [address] [place], [place] [phone] Sol Morris documented as of this encounter Visit Diagnoses Not on filedocumented in this encounter Care Teams Decay Control Operator Relationship Specialty Start Date End Date Aura Allen MD [address] [place] [address] PCP - General Family Medicine 03/15/20 documented as of this encounter
--- OUTSIDE RECORDS SUMMARY | 2024-10-14 16:30 | XMS_ITS | Clinical Summary ---
Author Organization [employer] Address [address] [place] [address] [address] [place] [address] Care Team Providers Care Network Security Officer Name Role Phone Aura Allen MD Primary Care Provider [phone] Allergies Active Allergy Reactions Criticality Noted Date [...] sleep. 30 tablet 10/02/19 25 025 Active ibuprofen 600 MG tabletIndicati ons:Acute non intractable tension-type headache Take 1 tablet (600 mg) by mouth every 8 (eight) hours if needed for mild pain, moderate pain or headaches. 30 tablet 10/02/19 25 025 Active melatonin 5 MG tablet TAKE 1 OR 2 TABLETS BY MOUTH 15 MINUTES BEFORE BEDTIME 08/01/19 025 Discontinued(In effective) ibuprofen 600 MG tabletIndicati [...] pain or moderate pain. 15 tablet 09/30/19 25 025 Discontinued(Re order (will not trigger notification to Pharmacy)) ondansetron (Zofran) 4 MG tabletIndicati ons:Acute non intractable tension-type headache Take 1 tablet (4 mg) by mouth every 8 (eight) hours if needed for nausea or vomiting for up to 10 days. 30 tablet 10/02/19 25 025 Active Problems Problem Noted Date Diagnosed Date [...] (11/19/2023 1:16 PM EDT): Will refer to [facility] for BTL due to HSN insurance History [...] Type Department Care Team Description 10/07/2024 Telephone [facility] [address] [place] [address] Aura Allen MD Results 10/03/2024 Orders Only [facility] [address] [facility] [place] [phone] Fani Solorzano MD Localized edema (Primary Dx); Proteinuria, unspecified type 10/03/2024 Orders Only [facility] [address] [facility] [place] [phone] Fani Solorzano MD 10/02/[address] [address] Aura Allen MD Results 10/01/2024 3:30 PM EDT Office Visit [address] [address] Aura Allen MD Proteinuria, unspecified type (Primary Dx); Acute non intractable tension-type headache; Elevated brain natriuretic peptide (BNP) level 10/01/2024 Travel 09/30/2024 Orders Only [address] [address] Aura Allen MD Elevated brain natriuretic peptide (BNP) level (Primary Dx); Shortness of breath 09/29/2024 2:40 PM EDT Office Visit [facility] [address] [address] Fani Solorzano MD Edema, unspecified type (Primary Dx); Isolated proteinuria without specific morphologic lesion; Acute nonintractable headache, unspecified headache type 09/29/2024 Orders Only [address] [address] Fani Solorzano MD 09/26/[address] [address] Aura Allen MD Nurse Triage 09/24/2024 Orders Only GENERIC EXTERNAL DATA DEPARTMENT Provider, Generic External Data 09/05/2024 Orders Only [facility] [address] [place] [address] Aura Allen MD Unwanted fertility (Primary Dx) 09/05/[address] [address] Aura Allen MD recall 08/26/2024 1:00 PM EST Clinical Support [address] [address] Magaly Patino RN Contraceptive education 08/26/2024 Telephone [facility] [address] [address] Aura Allen MD 08/26/2024 Travel 08/05/2024 3:00 PM EST Office Visit [facility] [address] [facility] [place] [address] Karen Christensen DDS Dental caries (Primary Dx) 07/29/2024 11:00 AM EST Office Visit [facility] [address] [facility] [place] [address] Sol Morris Dental plaque (Primary Dx); Dental [...] the past 12 months, has t he [employer], gas, oil or water [employer] threatened to shut off services in your [...] Description 11/13/2024 1:00 PM EDT Clinical Support [facility] [address] [place] [address] 12/01/2024 2:15 PM EDT Office Visit [facility] [address] [place] [address] Aura Allen MD [address] [place] [address] 02/10/2025 10:00 AM EDT Office Visit [facility] [address] [place] [phone] Sol Morris Health Maintenance Due Date Last Done [...] Procedure Name Priority Date/Time Associated Diagnosis Comments US RENAL BI STAT 10/14/2024 1:59 PM EDT Proteinuria, unspecified type PROTEIN ELECTROPHORESIS, 24-HOUR URINE (UPEP) Routine 10/03/2024 11:00 AM EDT Localized edema PROTEIN, TOTAL W/CREAT, 24 HOUR URINE Routine 10/03/2024 11:00 AM EDT CREATININE, 24 HR GROUP Routine 10/03/2024 11:00 AM EDT ALEJANDRO BUCK VIRUS ANTIBODY PANEL Routine 10/01/2024 4:10 PM EDT Proteinuria, unspecified type BASIC METABOLIC PANEL Routine 10/01/2024 4:10 PM EDT Proteinuria, unspecified type AFNI SCREEN, IFA, W/REFL TITER AND PATTERN Routine [...] 2 :37 PM EDT Edema, unspecified type COMPREHENSIVE METABOLIC [...] Recently Relevant to Health Maintenance Results * US RENAL BI (10/14/2024 1:59 PM EDT) Anatomical Region Laterality Modality Abdomen Ultrasound 10/14/2024 1:59 PM EDT Narrative 10/14/2024 2:26 PM EDT ? [facility] ?[address] ? [place] [address] ? Ultrasound Report ? Signed ? Patient: Shaina Cyr ?MR#: [id number] ?? [id number] ? : 1985 ?Acct:[id number] ? Age/Sex: 39 / F ?ADM Date: 04/01/25 ? Loc: HO.HMGCX ? Attending Dr: Aura Allen MD ? Ordering Physician: Aura Allen ?? Date of Service: 10/14/24 ?? Procedure(s): US renal BI ?? Accession Number(s): [id number] ? cc: Aura Allen ? EXAMINATION: ?? US RETROPERITONEAL LIMITED (RENAL ONLY) ? CLINICAL INFORMATION: ?? Proteinuria. ? COMPARISON: ?? None available. ?? Correlation made with CT abdomen and pelvis 11/30/2018. ? TECHNIQUE: ?? Real-time imaging of the kidneys. ? FINDINGS: ? RIGHT KIDNEY: 11.1 x 5.2 x 4.7 cm (SAG x AP x TRV). The kidney is ?? normal in size and contour. Duplicated collecting system. There is ?? mildly diffusely increased cortical echogenicity. Renal cortical ?? thickness is normal. No calculi or focal parenchymal lesions. No ?? hydronephrosis. ? LEFT KIDNEY: 12.3 x 5.1 x 4.4 cm (SAG x AP x TRV). The kidney is normal ?? in size and contour. Duplicated collecting system. There is mildly ?? diffusely increased cortical echogenicity. Renal cortical thickness is ?? normal. No calculi or focal parenchymal lesions. No hydronephrosis. ? US/US renal BI ?? IMPRESSION: ?? 1. Mildly increased bilateral renal cortical echogenicity, in keeping ?? with intrinsic renal disease. No hydronephrosis mass, or cortical ?? thinning. ? Electronically signed by: ??Shaggy Sherman MD ??10/14/2024 02:24 PM EDT RP ? Dictated By: ?Shaggy Sherman MD ? Signed By: ?<Electronically signed by Shaggy Sherman MD in OV> ?10/14/24 1424 ? DD/ [id number] ? TD/TT: 10/14/24 1419 ? Drafter Mechanical: ? Procedure Note Lexii, Image - 10/14/2024 [facility] [place] [address] Ultrasound Report Signed Patient: Shaina Cyr#: [id number] : 1985Acct:[id number] Age/Sex: 39 / FADM Date: 10/14/24 Loc: HO.HMGCX Attending Dr: Aura Allen MD Ordering Physician: Aura Allen Date of Service: 10/14/24 Procedure(s): US renal BI Accession Number(s): [id number] cc: Aura Allen EXAMINATION: US RETROPERITONEAL LIMITED (RENAL ONLY) CLINICAL INFORMATION: Proteinuria. COMPARISON: None available. Correlation made with CT abdomen and pelvis 11/30/2018. TECHNIQUE: Real-time imaging of the kidneys. FINDINGS: RIGHT KIDNEY: 11.1 x 5.2 x 4.7 cm (SAG x AP x TRV). The kidney is normal in size and contour. Duplicated collecting system. There is mildly diffusely increased cortical echogenicity. Renal cortical thickness is normal. No calculi or focal parenchymal lesions. No hydronephrosis. LEFT KIDNEY: 12.3 x 5.1 x 4.4 cm (SAG x AP x TRV). The kidney is normal in size and contour. Duplicated collecting system. There is mildly diffusely increased cortical echogenicity. Renal cortical thickness is normal. No calculi or focal parenchymal lesions. No hydronephrosis. US/US renal BI IMPRESSION: 1. Mildly increased bilateral renal cortical echogenicity, in keeping with intrinsic renal disease. No hydronephrosis mass, or cortical thinning. Electronically signed by: Shaggy Sherman MD 10/14/2024 02:24 PM EDT Dictated By: Shaggy Sherman MD Signed By: <Electronically signed by Shaggy Sherman MD in OV> 10/14/24 1424 DD/ 1359 TD/TT: 10/14/24 1419 Drafter Mechanical: Aura Allen MD [facility] US PROCEDURES Final Result * CREATININE, 24 HR GROUP (10/03/2024 11:00 AM EDT) Creatinine, 24 Hour Urine 1.3 1.0 - 2.0 G/Day [facility] Creatinine, Urine 70.58 [facility] Urine Total Volume 24 Hour 1,875 mL [facility] 10/03/2024 11:0 0 AM EDT 10/03/2024 1:27 PM EDT Narrative [facility] - 10/03/2024 2:55 PM EDT [id number] Fani Solorzano MD LAB URINE ORDERABLES Fin al Result Performing Organization Address [facility] Co de Phone Number [facility] [address] [place] [phone] * (ABNORMAL) Protein, Total, 24-Hour Urine with Creatinine (10/03/2024 11:00 AM EDT) Protein, Total, 24 Hr Urine 1,163(H) <150 mg/Day [facility] Protein, Urine 62 mg/dL [facility] Creatinine, 24 Hour Urine 1.3 1.0 - 2.0 G/Day [facility] Creatinine, Urine 71.26 [facility] Urine Total Volume 24 Hour 1,875 mL [facility] 10/03/2024 11:0 0 AM EDT 10/03/2024 1:29 PM EDT Narrative [facility] - 10/03/2024 2:55 PM EDT [id number] Fani Solorzano MD LAB URINE ORDERABLES Fin al Result Performing Organization Address [facility] de Phone Number [facility] [address] [place] [phone] * (ABNORMAL) Protein Electrophoresis, 24-Hour Urine (UPEP) (10/03/2024 11:00 AM EDT) Creatinine, 24 Hour Urine 1.29 0.50 - 2.15 g/24 h [facility] Protein/Creatinine Ratio 913(A) <150 mg/g creat [facility] Protein, Total, 24 Hr Urine 1181(A) <150 mg/24 h [facility] Albumin 79 % [facility] Qzmzl-8-Hpnsdrgta 4 % [facility] Wkpcg-4-Hytlpxoan 4 % [facility] Beta Globulins 9 % [facility] Gamma Globulins 5 % [facility] Abnormal Protein Band 1 TNP [facility] Abnormal Protein Band 2 [facility] Abnormal Protein Band 3 [facility] Interpretation [facility] Comment:Selective proteinuri a. No monoclonal proteins detected.The supplier of the testing reagents for this assay haschanged. Detection of small monoclonal proteins mayvary by test system. Urine immunofixation is suggestedif clinically indicated and not already ordered.THIS TEST WAS PERFORMED AT:[employer] [place] [phone] PRINCE MD Protein/Creatinine Ratio 0.913(A) <0.150 [facility] Comment:Result Units: mg/mg creat 10/03/2024 11:0 0 AM EDT 10/03/2024 3:46 PM EDT Narrative [facility] - 10/07/2024 1:30 PM EDT [id number] Fani Solorzano MD LAB URINE ORDERABLES Fin al Result [facility] [address] [place] [phone] [phone] * (ABNORMAL) Alejandro-Buck Virus Antibody Panel (10/01/2024 4:10 PM EDT) EBV Viral Capsid Antigen (VCA) Antibody IgG <18.00 U/mL [facility] Comment:U/mL Interpretation ---- <18.00 Negative 18.00-21.99 Equivocal >21.99 Positive EBV Viral Capsid Antigen (VCA) Ab IgM <36.00 U/mL [facility] Comment:U/mL Interpretation ---- <36.00 Negative 36.00-43.99 Equivocal >43.99 Positive EBV Nuclear Antigen (EBNA) Antibody IgG 501.00(A) U/mL [facility] Comment:U/mL Interpretation ---- <18.00 Negative 18.00-21.99 Equivocal >21.99 Positive Interpretation: SEE NOTE [facility] Comment:No definitive interp retation can be made. This specimen exhibits anunusual antibody profile.THIS TEST WAS PERFORMED AT:[facility] [place] [phone] PRINCE MD Blood Venous blood specimen / Unknown 10/01/2024 4:10 PM EDT 10/01/2024 6:21 PM EDT Aura Allen MD LAB BLOOD ORDERABLES Final Res ult Performing Organization Address [facility]/ZIP Co de Phone Number [facility] [address] [place] [phone] * Culture, Urine, Routine (10/01/2024 4:10 PM EDT) Urine Urine specimen obtained by clean catch procedure / Unknown 10/01/2024 4:10 PM EDT 10/01/2024 6:00 PM EDT Comment:UACC Narrative [facility] - 10/02/2024 12:56 PM EDT Urine Culture No growth. Specimen Source: Urine clean catch Aura Allen MD LAB MICROBIOLOGY - GENERAL ORD ERABLES Final Result Performing Organization Address [facility] Co de Phone Number [facility] [address] [place] [phone] * C-reactive Protein (10/01/2024 4:10 PM EDT) Only the most recent of2 resultswithin the time period is included. C Reactive Protein 0.12 < or = 0.50 mg/dL [facility] Blood Venous blood specimen / Unknown 10/01/2024 4:10 PM EDT 10/01/2024 6:21 PM EDT Aura Allen MD LAB BLOOD ORDERABLES Final Res ult Performing Organization Address [facility]/ZIP Co de Phone Number [facility] [address] [place] [address] [phone] * FANI Screen,IFA, with Reflex to Titer and Pattern (10/01/2024 4:10 PM EDT) Only the most recent of2 resultswithin the time period is included. Anti Nuclear Antibody Screen NEGATIVE NEGATIVE [facility] Comment:FANI IFA is a first [...] clinicallysuspected inflammatory myopathies.AC-0: NegativeInternational Consensus on FANI Patterns(https://doi.org/10.1515/acqu-6252-1091)For additional information, please refer tohttp://education.Scifiniti/faq/NSF662(This link is being provided for informational/educational purposes only.)THIS TEST WAS PERFORMED AT:[facility] [place] [phone] PRINCE MD FANI Titer TNP [facility] FANI Pattern [facility] FANI TITER 2 (REF LAB) [facility] FANI Pattern 2 [facility] FANI TITER 3 [facility] FANI PATTERN 3 [facility] Blood Venous blood specimen / Unknown 10/01/2024 4:10 PM EDT 10/01/2024 6:21 PM EDT us Aura Allen MD LAB BLOOD ORDERABLES Final Res ult Performing Organization Address [facility]/ZIP Co de Phone Number [facility] [address] [place] [address] [phone] * (ABNORMAL) Basic Metabolic Panel (10/01/2024 4:10 PM EDT) Only the most recent of2 resultswithin the time period is included. Sodium 140 135 - 145 mmol/L [facility] Potassium 4.3 3.3 - 5.1 mmol/L [facility] Chloride 113(H) 96 - 108 mmol/L [facility] Carbon Dioxide 23 22 - 29 mmol/L [facility] Anion Gap 8(L) 12 - 20 [facility] Urea Nitrogen (BUN) 15 9 - 16 mg/dL [facility] Creatinine, Serum 0.77 0.5 - 1.4 mg/dL [facility] Estimated Glomerular Filt Rate >60 [facility] Comment:Chronic Kidney Disea se: Estimated GFR < 60 mL/min/1.72o0Tchqnu Kidney Disease: Estimated GFR < 15 mL/min/1.73m2 Glucose 86 60 - 115 mg/dL [facility] Calcium 8.4 8.4 - 10.2 mg/dL [facility] Blood Venous blood specimen / Unknown 10/01/2024 4:10 PM EDT 10/01/2024 6:21 PM EDT us Aura Allen MD LAB BLOOD ORDERABLES Final Res ult [facility] [address] [place] [phone] * (ABNORMAL) Urinalysis, Complete, with Reflex to Culture (09/29/2024 3:30 PM EDT) Color Urine Yellow [facility] Appearance Urine Clear [facility] PH 6.0 5.0 - 9.0 [facility] Glucose Urine UA Negative Negative mg/dL [facility] Urine Blood Negative Negative [facility] Specific [place] - Urine 1.015 1.005 - 1.025 [facility] Urine Protein 300 (3+)(A) Neg-Trace mg/dL [facility] Urine Ketones Negative Negative mg/dL [facility] Nitrite Urine Negative Negative [facility] Leukocyte Esterase Urine Negative Negative [facility] RBC Urine 0-2 0 - 2 /HPF [facility] Urine WBC 0-5 0 - 5 /HPF [facility] Urine Squamous Epithelial Cell 3-5 0 - 2 /HPF [facility] Urine Bacteria None Seen None Seen [facility] Hyaline Casts, Urine 3-5 0 - 2 /LPF [facility] 09/29/2024 3:30 PM EDT 09/29/2024 5:01 PM EDT Narrative [facility] - 09/29/2024 5:33 PM EDT Urine, Clean Catch Fani Solorzano MD LAB URINE ORDERABLES Fin al Result Performing Organization Address [facility]/ZIP Co de Phone Number [facility] [address] [place] [phone] * Syphilis Screen (09/29/2024 2:37 PM EDT) Syphilis Screen Nonreactive Nonreactive [facility] Blood 09/29/2024 2:37 PM EDT 09/29/2024 4:09 PM EDT Fani Solorzano MD LAB BLOOD ORDERABLES Fin al Result Performing Organization Address [facility] Co de Phone Number [facility] [address] [place] [phone] * TSH with Reflex to Free T4 (09/29/2024 2:37 PM EDT) TSH reflex Free T4 1.73 0.32 - 4.0 uIU/mL [facility] Blood 09/29/2024 2:37 PM EDT 09/29/2024 4:09 PM EDT Fani Solorzano MD LAB BLOOD ORDERABLES Fin al Result Performing Organization Address [facility] Co de Phone Number [facility] [address] [place] [address] [phone] * (ABNORMAL) Lipid Panel with Reflex to Direct LDL (09/29/2024 2:37 PM EDT) Triglycerides 108 <150 mg/dL [facility] Comment:Desirable Triglyceri de: less than 150 mg/dLBorderline High Triglyceride 150-199 mg/dLHigh Triglyceride: 200-499 mg/dLVery High Triglyceride: greater than or equal to 5OO mg/dL Cholesterol 159 <200 mg/dL [facility] Comment:Desirable Cholestero l: less than 200 mg/dLBorderline High Cholesterol: 200-239 mg/dLHigh Cholesterol: greater than 239 mg/dL LDL Cholesterol Calculated 102(H) <100 mg/dL [facility] Comment:Desirable LDL: less than 100 mg/dLNear Optimal/Above Optimal LDL: 110- 129 mg/dLBorderline High LDL: 130-159 mg/dLHigh LDL: 160-189 mg/dLVery High LDL: greater than or equal to 190 mg/dL HDL Cholesterol 36(L) >40 mg/dL [facility] Comment:Desirable HDL: great er than 40 mg/dL Note: This HDL assay may give artificially low results in patients with liver disease. Blood 09/29/2024 2:37 PM EDT 09/29/2024 4:09 PM EDT Fani Solorzano MD LAB BLOOD ORDERABLES Fin al Result Performing Organization Address [facility]/ZIP Co de Phone Number [facility] [address] [place] [address] [phone] * Hepatitis Panel, General (09/29/2024 2:37 PM EDT) Hepatitis A IgM Nonreactive Nonreactive [facility] Comment:IgM antibodies to CHAND V not detected; does not exclude earlyacute or recovered HAV infection. ~Hepatitis B Surface Antibody GRAYZONE Nonreactive [facility] Comment:GRAYZONE: 8.00 mIU/m L TO 11.99 mIU/mLTHE IMMUNE STATUS OF THE INDIVIDUAL SHOULD BE FURTHERASSESSED BY CONSIDERING OTHER FACTORS, SUCH CLINICALSTATUS, FOLLOW-UP TESTING, ASSOCIATED RISK FACTORS, AND THEUSE OF ADDITIONAL DIAGNOSTIC INFORMATION. Hepatitis B Core Antibody Nonreactive Nonreactive [facility] Hepatitis C Antibody Nonreactive Nonreactive [facility] Comment:Antibodies to HCV no t detected; does not exclude early acuteHCV infection. Hepatitis B Surface Ag Negative Negative [facility] Blood 09/29/2024 2:37 PM EDT 09/29/2024 4:00 PM EDT us Fani Solorzano MD LAB BLOOD ORDERABLES Fin al Result [facility] [address] [place] [phone] * (ABNORMAL) CBC auto differential (09/29/2024 2:37 PM EDT) Only the most recent of2 resultswithin the time period is included. White Blood Count 6.7 4.8 - 10.8 X10*3/uL [facility] Red Blood Count 4.05(L) 4.20 - 5.50 X10*6/uL [facility] Hemoglobin 11.8(L) 12.0 - 16.0 g/dl [facility] Hematocrit 34.7(L) 37.0 - 47.0 % [facility] Mean Corpuscular Volume 85.7 80.0 - 98.0 fL [facility] Mean Corpuscular Hemoglobin 29.1 27.0 - 33.0 pg [facility] Mean Corpuscular HGB Conc 34.0 31.0 - 35.0 g/dl [facility] Red Cell Distribution Width 12.2 11.0 - 16.0 % [facility] Platelet Count 208 160 - 400 X10*3/uL [facility] Mean Platelet Volume 10.9 9.4 - 12.3 fL [facility] Neutrophils Percent Auto 68.0 45 - 73 % [facility] Imm Gran Pct Auto 0.6(H) 0.0 - 0.4 % [facility] Lymphocytes Percent Auto 22.3 20 - 40 % [facility] Monocytes Percent Auto 6.9 2 - 11 % [facility] Eosinophils Percent Auto 1.6 0 - 4 % [facility] Basophils Percent Auto 0.6 0 - 2 % [facility] NRBC Pct Auto 0.0 0.0 - 0.2 /100WBC [facility] Neutrophils Absolute Auto 4.5 2.0 - 8.3 x10*3/uL [facility] Imm Gran Abs Auto 0.04(H) 0.00 - 0.03 X10*3/uL [facility] Lymphocytes Absolute Auto 1.5 1.2 - 4.9 X10*3/uL [facility] Monocytes Absolute Auto 0.5 0.1 - 1.2 X10*3/uL [facility] Eosinophils Absolute Auto 0.1 0.0 - 0.4 X10*3/uL [facility] Basophils Absolute Auto 0.0 0.0 - 0.2 X10*3/uL [facility] NRBC Abs Auto 0.000 0.0 - 0.012 X10*3/uL [facility] Blood Venous blood specimen / Unknown 09/29/2024 2:37 PM EDT 09/29/2024 4:18 PM EDT us Fani Solorzano MD LAB BLOOD ORDERABLES Fin al Result [facility] [address] [place] [phone] * HIV-1/2 Antigen and Antibodies, Fourth Generation, with Reflexes (09/29/2024 2:37 PM EDT) HIV AB/AG Nonreactive Nonreactive [facility] Comment:HIV-1 p24 Ag and/or HIV-1/HIV-2 Ab not detected.A test result that is nonreactive does not exclude thepossibility of exposure to or infection with HIV-1 and/orHIV-2. Nonreactive results in this assay for individualswith prior exposure to HIV-1 and/or HIV-2 may be due toantigen and antibody levels that are below the limit ofdetection of this assay.The [employer] HIV Ag/Ab Combo assay result andsupplemental assay results should be interpreted inconjunction with the patient's clinical presentation,history and other laboratory results. If the results areinconsistent with clinical evidence, additional testing issuggested to confirm the result. Blood Venous blood specimen / Unknown 09/29/2024 2:37 PM EDT 09/29/2024 4:00 PM EDT Fani Solorzano MD LAB BLOOD ORDERABLES Fin al Result Performing Organization Address [facility] Co de Phone Number [facility] [address] [place] [phone] * (ABNORMAL) Sed Rate by Modified Westergren (09/29/2024 2:37 PM EDT) Erythrocyte Sedimentation Rate 23(H) 0 - 20 MM/HR [facility] Comment:Patients with polycy themia and many hemoglobin abnormalitiesmay have depressed sed rates whereas patients with anemiamay have elevated sed rates. Blood Venous blood specimen / Unknown 09/29/2024 2:37 PM EDT 09/29/2024 4:18 PM EDT Fani Solorzano MD LAB BLOOD ORDERABLES Fin al Result Performing Organization Address [facility]/ZIP Co de Phone Number [facility] [address] [place] [phone] * (ABNORMAL) B Type Natriuretic Peptide (BNP) (09/29/2024 2:37 PM EDT) Only the most recent of2 resultswithin the time period is included. B Type Natriuretic Peptide 171(H) <100 pg/mL [facility] Blood Venous blood specimen / Unknown 09/29/2024 2:37 PM EDT 09/29/2024 4:18 PM EDT Fani Solorzano MD LAB BLOOD ORDERABLES Fin al Result Performing Organization Address [facility] Co de Phone Number [facility] [address] [place] [phone] * Hemoglobin A1c (09/29/2024 2:37 PM EDT) Hemoglobin A1c 5.5 <6.0 % [facility] Comment:Hemoglobin A1C Refer ence Range Adults: 4.8 - 6.0 % Non diabetic: < 6.0 % Goal: < 7.0 %Additional Action Suggested: > 8.0 %Note: Hemoglobin A1c results are invalid for patients with abnormal amounts of HbF. Blood transfusions may impact the HbA1c concentration in the patient sample. Estimated Average Glucose 111 mg/dL [facility] Comment:eAG = Estimated ave rage glucose which is %A1C expressed asaverage glucose, using the formula of the A7M-RgebmesSrwfpjq Glucose study (ADAG), Diabetes Care, Vol.31,#8,2007 Blood Venous blood specimen / Unknown 09/29/2024 2:37 PM EDT 09/29/2024 4:18 PM EDT Fani Solorzano MD LAB BLOOD ORDERABLES Fin al Result Performing Organization Address [facility] Co de Phone Number [facility] [address] [place] [address] [phone] * (ABNORMAL) Comprehensive Metabolic Panel (09/29/2024 2:37 PM EDT) Sodium 140 135 - 145 mmol/L [facility] Potassium 4.2 3.3 - 5.1 mmol/L [facility] Chloride 114(H) 96 - 108 mmol/L [facility] Carbon Dioxide 21(L) 22 - 29 mmol/L [facility] Anion Gap 9(L) 12 - 20 [facility] Urea Nitrogen (BUN) 18(H) 9 - 16 mg/dL [facility] Creatinine, Serum 0.92 0.5 - 1.4 mg/dL [facility] Estimated Glomerular Filt Rate >60 [facility] Comment:Chronic Kidney Disea se: Estimated GFR < 60 mL/min/1.93m2Snjdxk Kidney Disease: Estimated GFR < 15 mL/min/1.73m2 Glucose 89 60 - 115 mg/dL [facility] Calcium 8.6 8.4 - 10.2 mg/dL [facility] Bilirubin, Total 0.4 0.0 - 1.0 mg/dL [facility] Aspartate Amino Transferase 39(H) 5 - 31 U/L [facility] Alanine Aminotransferase 68(H) 0 - 31 U/L [facility] Total Protein 6.7 6.5 - 8.0 g/dL [facility] Albumin Level 3.5 3.5 - 5.0 g/dL [facility] Alkaline Phosphatase 54 39 - 117 U/L [facility] Blood Venous blood specimen / Unknown 09/29/2024 2:37 PM EDT 09/29/2024 4:09 PM EDT Fani Solorzano MD LAB BLOOD ORDERABLES Fin al Result [facility] [address] [place] [phone] * (ABNORMAL) POCT urinalysis dipstick manually [...] Weakly Positive Urine 08/26/2024 1:00 PM EST Result [facility] Aura Allen MD POINT OF CARE TEST [...] has been evaluated with computer assisted technology. [facility] Neighborhood Planner : SEE COMMENT [facility] Comment: LIBORIO QUILES(ASCP) CT screening location: [address] ??[id number] Infection Shift in vaginal veronique suggestive of bacterial vaginosis. [facility] Interpretation/R esult: Negative for intraepithelial lesion or malignancy. [facility] LMP: NONE [facility] Prev. BX: NONE [facility] Prev. PAP: NONE [facility] SOURCE: None given [facility] Statement Of Adequacy: SEE COMMENT [facility] Comment: Satisfactory for evaluation. Endocervical/transformation zone component absent. Age and/or menstrual status not provided 04/01/2021 9:24 AM EDT Result [facility] Aura Allen MD LAB PATHOLOGY ORDERABLES Final Result [facility] [address] * HPV mRNA E6/E7 REFLEX TO HPV 16, 18/45 (04/01/2021 9:24 AM EDT) HPV nRNA E6/E7 Not Detected Not Detected [facility] Comment: Methodology: Energy And Sustainability Manager-Mediated Amplification This assay detects E6/E7 viral messenger RNA (mRNA) from 14 high-risk HPV types (16,18,31,33,35,39,45,51,52,56,58,59,66,68). ? The analytical performance characteristics of this assay have been determined by [facility]. The modifications have not been cleared or approved by the FDA. This assay has been validated pursuant to the CLIA regulations and is used for clinical purposes. ?? For additional information, please refer to http://education.Wannafun/faq/CLL907c2 (This link if provided for information/ educational purposes only.) 04/01/2021 9:24 AM EDT us Aura Allen MD LAB CYTOLOGY ORDERABLES Final Result Performing Organization Address [facility] Co de Phone Number [facility] [address] from Last 3 Months or Most Recently Relevant to Health Maintenance Insurance [id number] FULL DENT[facility] - HSN FULL (MEDICAID) D[place] LIMITED ADULT Care Teams Network Security Officer Relationship Specialty Start Date End Date Aura Allen MD [address] [place] [address] PCP - General Family Medicine 03/15/20
--- OUTSIDE RECORDS SUMMARY | 2024-10-14 16:30 | XMS_ITS | Encounter Summary ---
Author Organization [employer] Address [address] [place] [address] [address] [place] [address] Care Team Providers Care Deputy Sheriff Name Role Phone Aura Allen MD Primary Care Provider [phone] Reason for Referral * Imaging (Urgent) - Closed Specialty Diagnoses / Procedures Referred By Contac t Referred To Contact Cardiology Diagnoses Elevated brain natriuretic peptide (BNP) level Shortness of breath Procedures Transthoracic Echo (TTE) Complete Aura Allen MD [address] [place] [address] Phone: tel: fax: [facility] [address] [place] [address] Phone: tel: fax: Referral ID Status Reason Start Date Expiration Date V isits Requested Visits Authorized [id number] Closed Perform Procedure 09/30/2024 09/30/2025 1 1 Encounter Details Date Type Department Care Team (Late st Contact Info) Description 09/30/2024 Orders Only [facility] [address] [place], [place] [phone] Aura Allen MD [address] [place], [place] [phone] Elevated brain natriuretic peptide (BNP) level (Primary [...] 1:00 PM EDT Clinical Support [facility] [address] [place] [phone] 12/01/2024 2:15 PM EDT Office Visit [facility] [address] [place] [phone] Aura Allen MD [address] [place] [address] 02/10/2025 10:00 AM EDT Office Visit [facility] ADULT DENTAL [address] [place] [phone] Sol Morris Scheduled Orders Name Type Priority [...] documented as of this encounter Care Teams Deputy Sheriff Relationship Specialty Start Date End Date Aura Allen MD [address] [place] [address] PCP - General Family Medicine 03/15/20 documented as of this encounter
--- OUTSIDE RECORDS SUMMARY | 2024-10-14 16:30 | XMS_ITS | Encounter Summary ---
Author Organization [employer] Address [address] [place] [address] 7 [place] [address] Care Team Providers Care Claims Investigator Name Role Phone Aura Allen MD Primary Care Provider [phone] Reason for Referral * Consultation (Routine) - Authorized Specialty Diagnoses / Procedures Referred By Conttodd t Referred To Contact Obstetrics and Gynecology Diagnoses Unwanted fertility Aura Allen MD [address] [place] [address] Phone: tel: fax: [address] Phone: tel: fax: Referral ID Status Reason Start Date Expiration Date Visits Requested Visits Authorized [id number] Authorized Specialty Services Required 09/05/2024 09/05/2025 1 1 Encounter Details Date Type Department Care Team (Late st Contact Info) Description 09/05/2024 Orders Only [facility] [address] [place] [address] [phone] Aura Allen MD [address] [place], [place] [phone] Unwanted fertility (Primary Dx) Social History Tobacco [...] Description 11/13/2024 1:00 PM EDT Clinical Support [facility] [address] [place] [address] 12/01/2024 2:15 PM EDT Office Visit [facility] [address] [place] [address] Aura Allen MD [address] [place] [address] 02/10/2025 10:00 AM EDT Office Visit [facility] [address] [place] [phone] Sol Morris Scheduled Referrals Name Type Priority Associated Diagnoses Order Schedule Referral to Obstetrics / Gynecology Outpatient Referral Routine Unwanted fertility Expected: 09/05/2024 (Approximate), Expires: 09/05/2025 documented as of this encounter Visit Diagnoses Diagnosis Unwanted fertility- Primary documented in this encounter Additional Health Concerns Assessment Noted Time PHQ-9 Depression Total Score: 20 024 11:34 AM EDT documented as of this encounter Care Teams Claims Investigator Relationship Specialty Start Date End Date Aura Allen MD [address] [place] [phone] PCP - General Family Medicine 03/15/20 documented as of this encounter
--- OUTSIDE RECORDS SUMMARY | 2024-10-14 16:30 | XMS_ITS | Encounter Summary ---
Author Organization [employer] Address [address] [place] [address] 7 [place] [address] Care Team Providers Care Taker Down Name Role Phone Aura Allen MD Primary Care Provider [phone] Encounter Details Date Type Department Care Team (Latest Contact Info) Description 10/31/2018 Abstract [facility] CON[facility] Dental, Provider, DDS Social History Tobacco [...] Description 11/13/2024 1:00 PM EDT Clinical Support [facility] [address] [place] [address] 12/01/2024 2:15 PM EDT Office Visit [facility] [address] [place] [address] Aura Allen MD [address] [place] [phone] 02/10/2025 10:00 AM EDT Office Visit [facility] ADULT DENTAL [address] [place] [address] Sol Morris documented as of this encounter Visit Diagnoses Not on filedocumented in this encounter Care Teams Taker Down Relationship Specialty Start Date End Date Aura Allen MD [address] [place] [phone] PCP - General Family Medicine 03/15/20 documented as of this encounter
--- OUTSIDE RECORDS SUMMARY | 2024-10-14 16:31 | XMS_ITS | Encounter Summary ---
Author Organization [employer] Address [address] [place] [address] 7[address] [place] [address] Care Team Providers Care Truss Driver Helper Name Role Phone Aura Allen MD Primary Care Provider [phone] Reason for Referral * Consultation (Urgent) - Canceled Specialty Diagnoses / Procedures Referred By Lauryn barrera Referred To Contact Nephrology Diagnoses Proteinuria, unspecified type Anu Solorzano MD [address] [place] [address] Phone: tel: fax: Referral ID Status Reason Start Date Expiration Date Visits Requested Visits Authorized [id number] Canceled Specialty Services Required 10/03/2024 10/03/2025 1 1 Encounter Details Date Type Department Care Team (Late st Contact Info) Description 10/03/2024 Orders Only [facility] [address] [place], [place] [phone] Anu Solorzano MD [address] [place], [place] [phone] Localized edema (Primary Dx); Proteinuria, unspecified type [...] Description 11/13/2024 1:00 PM EDT Clinical Support [facility] [address] [place] [address] 12/01/2024 2:15 PM EDT Office Visit [facility] [address] [place] [address] Aura Allen MD [address] [place] [phone] 02/10/2025 10:00 AM EDT Office Visit [facility] ADULT D[facility]AL [address] [place] [phone] Sol Morris Scheduled Orders Name Type Priority [...] Urine 1.29 0.50 - 2.15 g/24 h [facility] Protein/Creatinine Ratio 913(A) <150 mg/g creat [facility] Protein, Total, 24 Hr Urine 1181(A) <150 mg/24 h [facility] Albumin 79 % [facility] Vbbkh-6-Tkciueysn 4 % [facility] Siiva-1-Pqvtvziij 4 % [facility] Beta Globulins 9 % [facility] Gamma Globulins 5 % [facility] Abnormal Protein Band 1 [facility] Abnormal Protein Band 2 [facility] Abnormal Protein Band 3 [facility] Interpretation [facility] Comment:Selective proteinuri a. No monoclonal proteins detected.The supplier of the testing reagents for this assay haschanged. Detection of small monoclonal proteins mayvary by test system. Urine immunofixation is suggestedif clinically indicated and not already ordered.THIS TEST WAS PERFORMED AT:[facility] [place] [phone] PRINCE MD Protein/Creatinine Ratio 0.913(A) <0.150 [facility] Comment:Result Units: mg/mg creat 10/03/2024 11:0 0 AM EDT 10/03/2024 3:46 PM EDT Narrative [facility] - 10/07/2024 1:30 PM EDT [id number] us Anu Solorzano MD LAB URINE ORDERABLES Fin al Result [facility] [address] [place] [phone] documented in this encounter Visit Diagnoses Diagnosis Localized edema- Primary Edema Proteinuria, unspecified type documented in this encounter Additional Health Concerns Assessment Noted Time PHQ-9 Depression Total Score: 20 024 11:34 AM EDT documented as of this encounter Care Teams Truss Driver Helper Relationship Specialty Start Date End Date Aura Allen MD [address] [place] [address] PCP - General Family Medicine 03/15/20 documented as of this encounter
== END 2024-10-14 13:53 | disposition home or self-care (01) ==
LOC: HO.HMGCX 13:52
PROVIDERS: PCP General Practice; Visit Provider General Practice
DX: R80.9 Proteinuria, unspecified (principal)
CPT/HCPCS: 76775

== ENCOUNTER → 2024-10-14 13:59 | Outpatient (BNV) | payer MEDICAID, SELFPAY | PROVIDERS: PCP General Practice; Visit Provider Radiology Diagnostic Radiology | DX: R80.9 Proteinuria, unspecified (principal) | CPT/HCPCS: 76775 ==